=== PATIENT | female | born 1970 ===

== ENCOUNTER 2017-08-23 13:01 | Inpatient (IN) | payer OTHER ==
[2017-08-23 13:09] VITALS: BMI 24.0
--- NOTE | 2017-08-23 14:26 | C.PDOC ---
History Of Present Illness <Stephanie Velasco - Last Filed: 08/23/17 18:24> <Lorraine Phan - Last Filed: 08/23/17 19:46> 47yo female, no known past medical history, presents to the ED with complaints of a non-productive cough for the past 3 days. She also reports associated back pain due to the cough. Patient denies any fever, chills, nausea, vomiting, or rashes. She also denies any recent foreign travels or known sick contacts. She offers no other medical complaints. (Allison Phanjorie Farrukh) <Stephanie Velasco - Last Filed: 08/23/17 18:24> History Per: Patient History/Exam Limitations: no limitations Onset/Duration Of Symptoms: Days (3) Current Symptoms Are (Timing): Still Present Recent travel outside of the [place]: No Additional History Per: Patient <Lorraine Phan - Last Filed: 08/23/17 19:46> Time Seen by Provider: 08/23/17 13:18 Chief Complaint (Nursing): Cough, Cold, Congestion Past Medical History Reviewed: Historical Data, Nursing Documentation, Vital Signs - Medical History PMH: No Chronic Diseases Surgical History: Appendectomy Family History: States: No Known Family Hx, Unknown Family Hx - Social History Hx Tobacco Use: Yes (Smoker) Hx Alcohol Use: No Hx Substance Use: No - Immunization History Hx Influenza Vaccination: No <Allison Phanjorie Farrukh - Last Filed: 08/23/17 19:46> Vital Signs: Last Vital Signs Temp 98.4 F 08/23/17 13:09 Pulse 99 H 08/23/17 16:22 Resp 15 08/23/17 16:22 BP 165/100 H 08/23/17 16:22 Pulse Ox 100 08/23/17 16:52 Review Of Systems Except As Marked, All Systems Reviewed And Found Negative. Constitutional: Negative for: Fever, Chills Respiratory: Positive for: Cough. Negative for: Shortness of Breath, Hemoptysis Gastrointestinal: Negative for: Nausea, Vomiting, Abdominal Pain, Diarrhea Musculoskeletal: Positive for: Back Pain (due to coughing) Skin: Negative for: Rash <EmilieAllisonLorraine C - Last Filed: 08/23/17 19:46> Physical Exam - Physical Exam Appears: Non-toxic, No Acute Distress Skin: Normal Color, Warm, Dry, No Rash Head: Atraumatic, Normacephalic Eye(s): bilateral: Normal Inspection, PERRL, EOMI Nose: Normal Oral Mucosa: Moist Throat: Normal, No Erythema Neck: Normal ROM, Supple Chest: Symmetrical Cardiovascular: Rhythm Regular, No Other (tachycarida) Respiratory: Decreased Breath Sounds (right sided), No Accessory Muscle Use, Other (speaking in full sentences) Gastrointestinal/Abdominal: Normal Exam, Soft, No Tenderness Back: Normal Inspection, No CVA Tenderness, No Vertebral Tenderness, No Paraspinal Tenderness Extremity: Normal ROM, No Pedal Edema, No Deformity, No Swelling Neurological/Psych: Oriented x3, Normal Speech, Normal Motor, Normal Sensation Gait: Steady <Lorraine Phan - Last Filed: 08/23/17 19:46> ED Course And Treatment - Laboratory Results Result Diagrams: 08/23/17 15:05 08/23/17 15:05 <Stephanie Velasco - Last Filed: 08/23/17 18:24> - Laboratory Results Result Diagrams: 08/23/17 15:05 08/23/17 15:05 O2 Sat by Pulse Oximetry: 100 (RA) Pulse Ox Interpretation: Normal <Lorraine Phan - Last Filed: 08/23/17 19:46> Supervising Attending Note - Supervising Attending Note The Documented history was done by the: Physician Biomedical Manager The documented physical exam was done by the: Physician Biomedical Manager The documented procedures were done by the: Physician Biomedical Manager EM CAVEAT: Language Barrier - Attestation: I have personally seen and examined this patient.: Yes I have fully participated in the care of the patient.: Yes I have reviewed all pertinent clinical information, including history, physical exam and plan: Yes <Stephanie Velasco - Last Filed: 08/23/17 18:24> <Lorraine Phan - Last Filed: 08/23/17 19:46> - Notes: Notes:: SENIOR PRODUCT ANALYST COUGH, R BACK PAIN X 3 DAYS. NO FEVER. +SMOKER, DENIES HO ASTHMA. EXAM NAD NONTOXIC APPEARS COMFORTABLE. EXAM ABOVE (Stephanie Velasco) Progress - Data Reviewed Data Reviewed: Lab, Diagnostic imaging, Old records - Critical Care Citical Care: Excluding Proc Time Critical Care Time: 90 minutes - Continuity of Care Discussed patient case with:: Patient, Family-HIPPA compliant Discussed pt. case with product marketing consultant/specialty: General Surgery <Stephanie Velasco - Last Filed: 08/23/17 18:24> <ImeldarainekyleLorraine Farrukh - Last Filed: 08/23/17 19:46> - Re-Evaluation Re-evaluation Note: 08/23/17 14:54 D/W SURG RESIDENT AWARE OF ER FINDINGS WILL EVAL 08/23/17 15:26 S/P EVAL DR HOLDER. REQUESTING CT CHEST. VSS NARD EXAM UNCH PRIOR 08/23/17 17:17 EXAM UNCH PRIOR APPEARS COMFORTABLE VSS NAD. PENDING SURG DISPO (RodStephanie) Critical Care Time - Critical Care Note Total Time (in mins): 40 Documented critical care: time excludes all time spent performing seperately billable procedures. <Lorraine Phan - Last Filed: 08/23/17 19:46> Medical Decision Making <RodStephanie - Last Filed: 08/23/17 18:24> <Lorraine Phan C - Last Filed: 08/23/17 19:46> Medical Decision Making: Impression: Cough x 3 days Plan: -- CXR Time: 1452 CXR reviewed by provider, possible right pneumothorax. Case discussed with ER attending Dr. Velasco, and plan for admission due to pneumothorax. Call placed to medical surgical tech. Patient informed of CXR findings and is agreeable with plan for admission. Time: 1455 Basic labs, IV fluids ordered. Surgical consult placed with Dr. Holder. vice president supply chain to evaluated patient at bedside. Time: 1458 CXR FINDINGS: LINES AND TUBES: None. LUNG AND PLEURA: There is a large loculated pneumothorax with compressive atelectasis of the right mid and lower lobes. The left lung is well inflated and clear. HEART AND MEDIASTINUM: The heart is not enlarged. The hilar and mediastinal contours are within normal limits. SKELETAL STRUCTURES: The bony structures are within normal limits for the patient's age. VISUALIZED UPPER ABDOMEN: Normal. OTHER FINDINGS: None. IMPRESSION: Large loculated right mid and lower pneumothorax. The preliminary findings were documented by the ER clinical team in the ER note. Time: 1620 CT Chest FINDINGS: LUNGS: There is almost complete collapse of the right lung lower lobe. There is a partial CT collapse of the right middle lobe. Otherwise the lungs are clear without evidence of infiltrate cystic formation or consolidation. MEDIASTINUM: Unremarkable thoracic aorta. No aneurysm or dissection. Normal sized heart. Main pulmonary artery unremarkable. No vascular congestion. No lymphadenopathy. 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 PLEURA: There is localized moderate-size right pneumothorax approximately 50 percent contains linear opacities likely represent adhesions. No evidence of pleural effusion. BONES: No fracture. No destructive lesion. UPPER ABDOMEN: Grossly unremarkable. OTHER FINDINGS: None. IMPRESSION: Localize right pneumothorax measures approximately 50 percent of the right chest cavity contains linear opacities likely represent pleural adhesions. Almost complete collapse of the right lower lobe except the superior segments and partial collapse of the right middle lobe likely due to pneumothorax. The lungs are otherwise unremarkable without evidence of infiltrate consolidation or cystic formation. (Lorraine Phan) Disposition Counseled Patient/Family Regarding: Studies Performed, Diagnosis <RodStephanie - Last Filed: 08/23/17 18:24> Counseled Patient/Family Regarding: Smoking Cessation - Disposition Disposition Time: 14:52 - POA Present On Arrival: None <Lorraine Phan - Last Filed: 08/23/17 19:46> - Disposition Disposition: HOSPITALIZED Condition: STABLE Forms: [facility] (Tanzanian) - Clinical Impression Clinical Impression: Pneumothorax Decision To Admit - Pt Status Changed To: Hospital Disposition Of: Inpatient - Admit Certification Admit to Inpatient:: After my assessment, the patient will require hospitalization for at least two midnights. This is because of the severity of symptoms shown, intensity of services needed, and/or the medical risk in this patient being treated as an outpatient. - InPatient: Physician Admission Certification: I certify that this patient requires 2 or more midnights of care for the following reason:: SEE NOTE - . Bed Request Type: Regular Admitting Physician: Fifi Holder <Stephanie Velasco - Last Filed: 08/23/17 18:24> <Lorraine Phan - Last Filed: 08/23/17 19:46> - . Patient Diagnosis: Pneumothorax
[2017-08-23] MEDS ORDERED: Sodium Chloride 0.9% 1,000 ML IV ONE (14:54)
--- NOTE | 2017-08-23 15:00 | RAD ---
HISTORY: COMPARISON: 07/21/2015. TECHNIQUE: Chest PA and lateral FINDINGS: LINES AND TUBES: None. LUNG AND PLEURA: There is a large loculated pneumothorax with compressive atelectasis of the right mid and lower lobes. The left lung is well inflated and clear. HEART AND MEDIASTINUM: The heart is not enlarged. The hilar and mediastinal contours are within normal limits. SKELETAL STRUCTURES: The bony structures are within normal limits for the patient's age. VISUALIZED UPPER ABDOMEN: Normal. OTHER FINDINGS: None. IMPRESSION: Large loculated right mid and lower pneumothorax. The preliminary findings were documented by the ER clinical team in the ER note.
[2017-08-23 15:12] LABS: BASO # 0.1 K/uL (0.0-0.2); HEMOGLOBIN 13.9 g/dL (11.0-16.0); MEAN CELL VOLUME 92.7 fL (81.0-99.0); MONO # 0.6 K/uL (0.0-0.8)
[2017-08-23 15:16] LABS: BASO % 0.8 % (0.0-2.0); EOS # 0.4 K/uL (0.0-0.7); EOS % 4.8 % (0.0-4.0); LYMPH # 3.6 K/uL (1.0-4.3); LYMPH % 44.1 % (20.0-40.0); MEAN CORPUSCULAR HEMOGLOBIN 32.5 pg (27.0-31.0); MEAN PLATELET VOLUME 8.8 fL (7.2-11.7); NEUT # 3.5 K/uL (1.8-7.0); NEUT % 43.3 % (50.0-75.0); NRBC % 0.1 % (0.0-2.0); RBC 4.27 Mil/uL (3.80-5.20); RED CELL DISTRIBUTION WIDTH 13.2 % (11.5-14.5); WHITE BLOOD COUNT 8.1 K/uL (4.8-10.8)
[2017-08-23 15:22] LABS: GFR AFRICAN-AMERICAN > 60
[2017-08-23 15:23] LABS: ALB/GLOB RATIO 1.1 (1.0-2.1); ALBUMIN 4.3 g/dL (3.5-5.0); CALCIUM 9.1 mg/dl (8.6-10.4); GFR NON-AFRICAN AMERICAN > 60
[2017-08-23 15:24] LABS: ALT/SGPT 14 U/L (9-52); AST/SGOT 28 U/L (14-36); BLOOD UREA NITROGEN 7 mg/dL (7-17)
[2017-08-23 15:33] LABS: INR 1.1; PROTHROMBIN TIME 11.8 SECONDS (9.7-12.2)
[2017-08-23 15:44] LABS: SQUAMOUS EPITHIAL < 1 /hpf (0-5); URINE BILIRUBIN NEGATIVE (NEGATIVE); URINE BLOOD 3+ (NEGATIVE); URINE CLARITY Clear (Clear); URINE COLOR Straw (YELLOW); URINE GLUCOSE (UA) NORMAL (Normal); URINE LEUKOCYTE ESTERASE NEG Leu/uL (Negative); URINE PROTEIN NEGATIVE (NEGATIVE); URINE UROBILINOGEN NORMAL mg/dL (0.2-1.0)
[2017-08-23] MEDS ORDERED: Iodixanol 320 MG/ML 100 ML BOTTLE IV ONE (15:46)
--- NOTE | 2017-08-23 16:29 | CT ---
PROCEDURE: CT Chest with contrast HISTORY: Right lung chest pneumo COMPARISON: Comparison is made to the previous same-day chest x-ray TECHNIQUE: Contiguous axial images were obtained through the chest with intravenous contrast enhancement. Sagittal and coronal reconstructions were performed. IV contrast: 100 Visipaque 320 Radiation dose (DLP): 238.82 mGy-cm. This CT exam was performed using one or more of the following dose reduction techniques: Automated exposure control, adjustment of the mA and/or kV according to patient size, and/or use of iterative reconstruction technique. FINDINGS: LUNGS: There is almost complete collapse of the right lung lower lobe. There is a partial CT collapse of the right middle lobe. Otherwise the lungs are clear without evidence of infiltrate cystic formation or consolidation. MEDIASTINUM: Unremarkable thoracic aorta. No aneurysm or dissection. Normal sized heart. Main pulmonary artery unremarkable. No vascular congestion. No lymphadenopathy. 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 PLEURA: There is localized moderate-size right pneumothorax approximately 50 percent contains linear opacities likely represent adhesions. No evidence of pleural effusion. BONES: No fracture. No destructive lesion. UPPER ABDOMEN: Grossly unremarkable. OTHER FINDINGS: None. IMPRESSION: Localize right pneumothorax measures approximately 50 percent of the right chest cavity contains linear opacities likely represent pleural adhesions. Almost complete collapse of the right lower lobe except the superior segments and partial collapse of the right middle lobe likely due to pneumothorax. The lungs are otherwise unremarkable without evidence of infiltrate consolidation or cystic formation.
[2017-08-23] MEDS ORDERED: Lidocaine 2% w Epi 1:100,000 Inj IJ ONE (17:54)
[2017-08-23] MEDS ORDERED: HYDROmorphone 0.5 mg/0.5 ml ISec IVP STA (19:48)
[2017-08-23] MEDS ORDERED: Morphine 4 MG/ML VIAL IVP STA (19:53)
[2017-08-23] MEDS ORDERED: Morphine 4 MG/ML VIAL ONE (19:56)
[2017-08-24] MEDS: Lactated Ringer's 1,000 ML IV SCH ×2 (00:57→14:00)
[2017-08-24 05:00] LABS: BASO % 0.4 % (0.0-2.0); EOS # 0.3 K/uL (0.0-0.7); EOS % 2.8 % (0.0-4.0); HEMOGLOBIN 13.1 g/dL (11.0-16.0); LYMPH % 36.4 % (20.0-40.0); MEAN CELL VOLUME 92.1 fL (81.0-99.0); MEAN CORPUSCULAR HGB CONC 34.7 g/dL (33.0-37.0); MEAN PLATELET VOLUME 8.5 fL (7.2-11.7); MONO # 0.9 K/uL (0.0-0.8); MONO % 8.1 % (0.0-10.0); NEUT # 5.8 K/uL (1.8-7.0); NEUT % 52.3 % (50.0-75.0); NRBC % 0.1 % (0.0-2.0); RBC 4.09 Mil/uL (3.80-5.20); RED CELL DISTRIBUTION WIDTH 12.7 % (11.5-14.5); WHITE BLOOD COUNT 11.1 K/uL (4.8-10.8)
[2017-08-24 05:15] LABS: BLOOD UREA NITROGEN 9 mg/dL (7-17); CALCIUM 8.9 mg/dl (8.6-10.4); GFR AFRICAN-AMERICAN > 60; GFR NON-AFRICAN AMERICAN > 60
[2017-08-24] MEDS: Oxycodone/Acetaminophen 5/325 mg Tab PO PRN ×2 (05:22→18:42)
--- NOTE | 2017-08-24 05:45 | CP.PCM.HP ---
History of Present Illness - History of Present Illness History of Present Illness: History and physical for Dr. Vargas--late entry Chief complaint: pneumothorax Patient is a 47F with no reported past medical history who presented to the ED for evaluation of non-productive cough with associated chest and back pain. Patient is Danish-speaking, daughter is at bedside for translation. She reports 4-5 days of non-productive cough with subsequent development of chest and back pain. She denies fevers, chills, palpitations, nausea, vomiting, or any other symptoms. Patient denies recent trauma, recent travel, or any thoracic procedures or sick contacts. Pt had something similar in 2016 for which she was diagnosed with bronchitis in the ER and it resolved with antibiotics. Initial chest x-ray on 08/23 showed large loculated pneumothorax in the right middle and lower lobes. Initial chest CT with contrast showed right pneumothorax measuring approximately 50 percent of the right chest cavity, almost complete collapse of the right lower lobe and partial collapse of the right middle lobe. PMH: denies PSH: x2 (1991, 1994), appendectomy (2001), breast cyst removal x3 ( 2011 x2, 2013) Allergies: NKDA Social: current smoker approx 2 cigarette daily for 30 years; social alcohol; denies drug use Present on Admission - Present on Admission Any Indicators Present on Admission: No Review of Systems - Review of Systems All systems: reviewed and no additional remarkable complaints except (as per HPI ) Past Patient History - Past Medical History & Family History Past Medical History?: Yes Past Family History: Reviewed and not pertinent - Past Social History Smoking Status: Light Smoker < 10 Cigarettes Daily Alcohol: None Drugs: Denies - CARDIAC Hx Cardiac Disorders: No - PULMONARY Hx Respiratory Disorders: No - NEUROLOGICAL Hx Neurological Disorder: No - HEENT Hx HEENT Problems: No - RENAL Hx Chronic Kidney Disease: No - ENDOCRINE/METABOLIC Hx Endocrine Disorders: No - HEMATOLOGICAL/ONCOLOGICAL Hx Blood Disorders: No - INTEGUMENTARY Hx Dermatological Problems: No - MUSCULOSKELETAL/RHEUMATOLOGICAL Hx Falls: No - GASTROINTESTINAL Hx Gastrointestinal Disorders: No - GENITOURINARY/GYNECOLOGICAL Hx Genitourinary Disorders: No - PSYCHIATRIC Hx Substance Use: No - SURGICAL HISTORY Hx Appendectomy: Yes (2001) Hx Section: Yes (1991 and 1994.) Other/Comment: Breast Cyst Removed. X 2. 2011,2013. - ANESTHESIA Hx Anesthesia: Yes Hx Anesthesia Reactions: No Hx Malignant Hyperthermia: No Has any member of the family had a problem w/ anesthesia?: No Meds Allergies/Adverse Reactions: Allergies Allergy/AdvReac Type Severity Reaction Status Date / Time No Known Allergies Allergy Verified 07/21/15 18:47 Physical Exam - Constitutional Appears: Well, Non-toxic, No Acute Distress - Head Exam Head Exam: ATRAUMATIC, NORMOCEPHALIC - Eye Exam Eye Exam: Normal appearance. absent: Conjunctival injection, Scleral icterus - ENT Exam ENT Exam: Mucous Membranes Moist, Normal Oropharynx - Respiratory Exam Respiratory Exam: NORMAL BREATHING PATTERN. absent: Accessory Muscle Use, Respiratory Distress Additional comments: decreased lung sounds in the right middle lung and right lower lung moy - Cardiovascular Exam Cardiovascular Exam: Tachycardia, REGULAR RHYTHM - GI/Abdominal Exam GI & Abdominal Exam: Soft. absent: Distended, Tenderness - Extremities Exam Extremities exam: Positive for: pedal pulses present. Negative for: calf tenderness, pedal edema - Neurological Exam Neurological exam: Alert, Oriented x3 - Psychiatric Exam Psychiatric exam: Normal Affect, Normal Mood - Skin Skin Exam: Dry, Intact, Normal Color, Warm Results - Vital Signs Recent Vital Signs: Last Vital Signs Temp 98.5 F 08/24/17 04:00 Pulse 86 08/24/17 04:10 Resp 20 08/24/17 04:00 BP 136/92 H 08/24/17 04:00 Pulse Ox 99 08/24/17 04:00 - Labs Result Diagrams: 08/24/17 04:55 08/24/17 04:55 Labs: Laboratory Results - last 24 hr 08/23/17 08/23/17 08/23/17 15:05 15:05 15:05 WBC 8.1 RBC 4.27 Hgb 13.9 Hct 39.6 MCV 92.7 MCH 32.5 H MCHC 35.0 RDW 13.2 Plt Count 365 MPV 8.8 Neut % (Auto) 43.3 L Lymph % (Auto) 44.1 H [place] % (Auto) 7.0 Eos % (Auto) 4.8 H Baso % (Auto) 0.8 Neut # (Auto) 3.5 Lymph # (Auto) 3.6 [place] # (Auto) 0.6 Eos # (Auto) 0.4 Baso # (Auto) 0.1 PT 11.8 INR 1.1 APTT 19 L Sodium 142 Potassium 4.0 Chloride 103 Carbon Dioxide 24 Anion Gap 19 BUN 7 Creatinine 0.6 L Est GFR ( Amer) > 60 Est GFR (Non-Af Amer) > 60 Random Glucose 109 H Calcium 9.1 Total Bilirubin 0.6 AST 28 ALT 14 Alkaline Phosphatase 62 Troponin I Total Protein 8.2 Albumin 4.3 Globulin 3.9 Albumin/Globulin Ratio 1.1 Urine Color Urine Clarity Urine pH Ur Specific [place] Urine Protein Urine Glucose (UA) Urine Ketones Urine Blood Urine Nitrate Urine Bilirubin Urine Urobilinogen Ur Leukocyte Esterase Urine WBC (Auto) Urine RBC (Auto) Ur Squamous Epith Cells 08/23/17 08/24/17 08/24/17 15:32 04:55 04:55 WBC 11.1 H RBC 4.09 Hgb 13.1 Hct 37.7 MCV 92.1 MCH 32.0 H MCHC 34.7 RDW 12.7 Plt Count 372 MPV 8.5 Neut % (Auto) 52.3 Lymph % (Auto) 36.4 [place] % (Auto) 8.1 Eos % (Auto) 2.8 Baso % (Auto) 0.4 Neut # (Auto) 5.8 Lymph # (Auto) 4.0 [place] # (Auto) 0.9 H Eos # (Auto) 0.3 Baso # (Auto) 0.0 PT INR APTT Sodium 144 Potassium 3.9 Chloride 107 Carbon Dioxide 24 Anion Gap 17 BUN 9 Creatinine 0.7 Est GFR ( Amer) > 60 Est GFR (Non-Af Amer) > 60 Random Glucose 109 H Calcium 8.9 Total Bilirubin AST ALT Alkaline Phosphatase Troponin I < 0.0120 Total Protein Albumin Globulin Albumin/Globulin Ratio Urine Color Straw Urine Clarity Clear Urine pH 6.0 Ur Specific [place] 1.008 Urine Protein Negative Urine Glucose (UA) Normal Urine Ketones Negative Urine Blood 3+ H Urine Nitrate Negative Urine Bilirubin Negative Urine Urobilinogen Normal Ur Leukocyte Esterase Neg Urine WBC (Auto) < 1 Urine RBC (Auto) 2 Ur Squamous Epith Cells < 1 - Imaging and Cardiology Chest x-ray Status: Image reviewed by me, Report reviewed by me CT scan - chest Status: Image reviewed by me, Report reviewed by me Assessment & Plan - Assessment and Plan (Free Text) Assessment: 47F with large pneumothorax of the right middle and lower lobe of unknown origin , patient with no current respiratory distress Plan: Attempts pleurocatheter insertion on the right at bedside in the ED but were not successful--patient remains stable and was admitted to telemetry for further monitoring Consult IR for possible pig-tail catheter insertion via CT Will closely monitor patient NPO IVF, PRN pain and nausea medcation AM CXR CBC, BMP Discussed with Dr. Sam Zavala, PGY2
--- NOTE | 2017-08-24 08:19 | RAD ---
HISTORY: right pneumothorax COMPARISON: 08/23/2017. FINDINGS: LUNGS: There is compressive atelectasis of the right lung. The left lung is clear. . PLEURA: Persistent loculated large right pneumothorax. No left pneumothorax or pleural effusion. CARDIOVASCULAR: Normal. OSSEOUS STRUCTURES: No significant abnormalities. VISUALIZED UPPER ABDOMEN: Normal. OTHER FINDINGS: None. IMPRESSION: No change in large loculated right pneumothorax.
--- NOTE | 2017-08-24 08:21 | RAD ---
PROCEDURE: CHEST RADIOGRAPH, 1 VIEW HISTORY: rigth pneumothorax s/p chest tube placement COMPARISON: None available. FINDINGS: LUNGS: There is compressive atelectasis of the right lung. The left lung is clear. PLEURA: Interval placement of right chest tube which appears in the right chest wall. No change in large loculated right pneumothorax. No left pleural effusion or pneumothorax. CARDIOVASCULAR: Normal. OSSEOUS STRUCTURES: No significant abnormalities. VISUALIZED UPPER ABDOMEN: Normal. OTHER FINDINGS: None. IMPRESSION: Interval placement of right chest tube which appears to terminate in the chest wall. No significant interval change in large loculated right pneumothorax with compressive atelectasis of the right lung.
--- NOTE | 2017-08-24 09:32 | PCM.IRP ---
Chief Complaint: cough, back pain, large right PTX Objective - Vital Signs/Intake and Output Vital Signs (last 24 hours): Vital Signs - 24 hr 08/23/17 08/23/17 08/23/17 13:09 14:32 16:22 Temperature 98.4 F Pulse Rate 98 H 109 H 99 H Respiratory 18 20 15 Rate Blood Pressure 141/95 H 165/103 H 165/100 H O2 Sat by Pulse 100 100 100 Oximetry 08/23/17 08/23/17 08/23/17 16:23 19:46 19:48 Temperature 98.6 F Pulse Rate 95 H Respiratory 17 Rate Blood Pressure 147/92 H O2 Sat by Pulse 100 100 100 Oximetry 08/23/17 08/23/17 08/23/17 20:04 20:13 20:26 Temperature 99 F Pulse Rate 125 H 128 H 128 H Respiratory 28 H 24 22 Rate Blood Pressure 163/101 H 155/98 H 145/92 H O2 Sat by Pulse 100 100 99 Oximetry 08/23/17 08/23/17 08/23/17 22:44 23:25 23:41 Temperature 98.1 F Pulse Rate 92 H 92 H 84 Respiratory 16 20 Rate Blood Pressure 145/98 H 146/95 H O2 Sat by Pulse 99 100 Oximetry 08/24/17 08/24/17 08/24/17 04:00 04:10 07:20 Temperature 98.5 F 97.9 F Pulse Rate 96 H 86 75 Respiratory 20 18 Rate Blood Pressure 136/92 H 129/89 O2 Sat by Pulse 99 98 Oximetry Intake and Output (last 12 hours): Intake & Output 08/23/17 08/24/17 08/24/17 18:59 06:59 18:59 Intake Total 100 Balance 100 Weight 150 lb Intake: Oral 100 Other: Voiding Method Bedside Commode # Voids Urine, Voided 1 - Medications Medications: Current Medications Lactated Ringer's (Lactated Ringer's) 1,000 mls @ 100 mls/hr IV .Q10H [facility] Last Admin: 08/24/17 00:57 Dose: 100 mls/hr Nicotine (Nicoderm Cq) 1 patch TD DAILY [facility] Ondansetron HCl (Zofran Inj) 4 mg IVP Q6 PRN PRN Reason: Nausea/Vomiting Oxycodone/Acetaminophen (Percocet 5/325 Mg Tab) 1 tab PO Q6H PRN PRN Reason: Pain, moderate (4-7) Stop: 08/26/17 20:48 Last Admin: 08/24/17 05:22 Dose: 1 tab Pneumococcal Polyvalent Vaccine (Pneumovax 23 Vaccine) 0.5 ml IM .ONCE ONE Stop: 08/26/17 11:01 - Labs Labs (last 24 hours): Laboratory Results - last 24 hr 08/23/17 08/23/17 08/23/17 15:05 15:05 15:05 WBC 8.1 RBC 4.27 Hgb 13.9 Hct 39.6 MCV 92.7 MCH 32.5 H MCHC 35.0 RDW 13.2 Plt Count 365 MPV 8.8 Neut % (Auto) 43.3 L Lymph % (Auto) 44.1 H [place] % (Auto) 7.0 Eos % (Auto) 4.8 H Baso % (Auto) 0.8 Neut # (Auto) 3.5 Lymph # (Auto) 3.6 [place] # (Auto) 0.6 Eos # (Auto) 0.4 Baso # (Auto) 0.1 PT 11.8 INR 1.1 APTT 19 L Sodium 142 Potassium 4.0 Chloride 103 Carbon Dioxide 24 Anion Gap 19 BUN 7 Creatinine 0.6 L Est GFR ( Amer) > 60 Est GFR (Non-Af Amer) > 60 Random Glucose 109 H Calcium 9.1 Total Bilirubin 0.6 AST 28 ALT 14 Alkaline Phosphatase 62 Troponin I Total Protein 8.2 Albumin 4.3 Globulin 3.9 Albumin/Globulin Ratio 1.1 Urine Color Urine Clarity Urine pH Ur Specific [place] Urine Protein Urine Glucose (UA) Urine Ketones Urine Blood Urine Nitrate Urine Bilirubin Urine Urobilinogen Ur Leukocyte Esterase Urine WBC (Auto) Urine RBC (Auto) Ur Squamous Epith Cells 08/23/17 08/24/17 08/24/17 15:32 04:55 04:55 WBC 11.1 H RBC 4.09 Hgb 13.1 Hct 37.7 MCV 92.1 MCH 32.0 H MCHC 34.7 RDW 12.7 Plt Count 372 MPV 8.5 Neut % (Auto) 52.3 Lymph % (Auto) 36.4 [place] % (Auto) 8.1 Eos % (Auto) 2.8 Baso % (Auto) 0.4 Neut # (Auto) 5.8 Lymph # (Auto) 4.0 [place] # (Auto) 0.9 H Eos # (Auto) 0.3 Baso # (Auto) 0.0 PT INR APTT Sodium 144 Potassium 3.9 Chloride 107 Carbon Dioxide 24 Anion Gap 17 BUN 9 Creatinine 0.7 Est GFR ( Amer) > 60 Est GFR (Non-Af Amer) > 60 Random Glucose 109 H Calcium 8.9 Total Bilirubin AST ALT Alkaline Phosphatase Troponin I < 0.0120 Total Protein Albumin Globulin Albumin/Globulin Ratio Urine Color Straw Urine Clarity Clear Urine pH 6.0 Ur Specific [place] 1.008 Urine Protein Negative Urine Glucose (UA) Normal Urine Ketones Negative Urine Blood 3+ H Urine Nitrate Negative Urine Bilirubin Negative Urine Urobilinogen Normal Ur Leukocyte Esterase Neg Urine WBC (Auto) < 1 Urine RBC (Auto) 2 Ur Squamous Epith Cells < 1 Assessment/Plan - Assessment and Plan (Free Text) Assessment: 47 yo female w/ cough, back pain found to have large right PTX Plan: current and past imaging reviewed. retrospective review of chest radiograph from 07/21/2015 also showed evidence of right PTX, although considerably smaller. patient saturation is 100% and is in no respiratory distress. while there may be an acute component, this appears to be a chronic process, possibly representing pneumothorax ex vacuo. consider pulm consult. will place chest tube pending further recommendations. discussed with residential concierge, melecio at approximately 9 am
--- NOTE | 2017-08-24 09:55 | PCM.PROC ---
Procedures Attestation:: I certify that I have explained the specified Operation(s) or Procedure(s), risks, benefits and reasonable alternatives to the Patient and/or other person responsible. The opportunity was given to ask questions and all questions answered - Chest Tube Chest Tube Location: Mid-Axillary Right Size of Tube (cm): 8 (greek) Chest Tube Procedure: Chlorhexidine Tube Sutured to Skin: Yes Sterile Dressing Applied: Yes Anesthesia: Lidocaine 2% Volume Anesthetic (mls): 20 (cc) Incision Made With: #11 blade Post Procedure: sutured to skin, sterile dressing applied, air occlusive dressing Osorio of Air Stewart: Yes Tube Drainage: none Post Procedure CXR?: Yes Patient Tolerated Procedure: Yes Complications: placement outside of thoracic cavity Progress: Attempted to place an 8fr pleural catheter with a heimlich valve at bedside in the 5th intercostal space. Written consent was obtained. Time out was performed identifying the patient, procedure, and the laterality. Patient was prepped with chlorhexadine, local anesthetic was administered, and patient was draped in a sterile fashion. small incision was made in the skin with an #11 blade. 12g hollow needle with 8fr catheter attached to empty syringe was inserted into the pleural space just superior to rib 5 and air was aspirated. The catheter was very difficult to thread over the needle into the pleural cavity, and placement was uncertain. Catheter was left in place and connected to heimlich valve and suction. Catheter was sutured to the skin and occlusive dressing was placed. Patient tolerated the procedure well with some transient tachycardia and hypoxia that resolved after the procedure was completed. Follow up chest x- ray demonstrated the catheter was in the subcutaneous tissue, not the pleural cavity but that pneumothorax was stable.
--- NOTE | 2017-08-24 17:58 | PCM.SURG1 ---
Surgeon's Initial Post Op Note - Surgeon's Notes Surgeon: Kwadwo Palacios MD [employer] Instructor: None Type of Anesthesia: Local Pre-Operative Diagnosis: pneumothorax Operative Findings: large right PTX Post-Operative Diagnosis: same Operation Performed: CT guided right chest tube insertion Specimen/Specimens Removed: n/a Estimated Blood Loss: EBL {In ML}: 3 Post-Op Condition: Good Date of Surgery/Procedure: 08/24/17 Time of Surgery/Procedure: 15:30
--- NOTE | 2017-08-24 18:27 | RAD ---
HISTORY: sp Pigtail insertion COMPARISON: Time of the most recent examination: 04:36. FINDINGS: LUNGS: Partial re-expansion of the right lung. PLEURA: Residual pneumothorax. Pigtail catheter in the pleural space peripherally CARDIOVASCULAR: Normal. OSSEOUS STRUCTURES: No significant abnormalities. VISUALIZED UPPER ABDOMEN: Normal. OTHER FINDINGS: None. IMPRESSION: Status post pigtail catheter insertion, approximately 60- 75% reduction in right pneumothorax. Loculated right pneumothorax remains.
--- NOTE | 2017-08-24 20:18 | PCM.RRT ---
<German Denton - Last Filed: 08/24/17 20:15> RECEIVING SUPERVISOR Nurses Assessment - Situation Date: 08/24/17 Time RECEIVING SUPERVISOR was called: 15:20 RECEIVING SUPERVISOR Responder Arrival Time:: 15:22 RECEIVING SUPERVISOR Location:: [facility] room 2 RECEIVING SUPERVISOR Reason for Call: Tachycardia RECEIVING SUPERVISOR Called By: Physician - IV IV Inserted during RECEIVING SUPERVISOR?: No - Respiratory RECEIVING SUPERVISOR Delivery Method: Nasal Cannula @L/min Oxygen Flow Rate: 4 Received Nebulizer Treatments: No Was the Patient Ventilated with Bag/Mask 100% O2?: No Secretions Suctioned?: No Was the Patient Intubated?: No Was the Patient Placed on a Ventilator?: No - Medication Medications Administered During RECEIVING SUPERVISOR: none - Diagnostic Test Ordered EKG: No Chest X-Ray: Yes CT Scan: Yes CPR started during RECEIVING SUPERVISOR?: No - Vital Signs Vital Signs: Rapid Response Vital Sign Blood Pressure 161/96 Pulse Rate 147 Respiratory Rate 25 Temperature 97.8 F Oxygen Saturation 100 - [place] Coma Scale Coma Scale Eye Opening: Spontaneous Coma Scale Motor: Obeys Commands Movement Coma Scale Verbal: Oriented Coma Scale Total: 15 - Time RECEIVING SUPERVISOR Ended Time RECEIVING SUPERVISOR Ended: 15:25 - Vital Signs at end of RECEIVING SUPERVISOR Vital Signs at end of RECEIVING SUPERVISOR: Rapid Response End Vital Sign Blood Pressure 145/96 Pulse Rate 123 Respiratory Rate 20 Temperature 97.8 F O2 Sat by Pulse Oximetry 100 - Recommendations Notifications: Attending Physician, Consultations, Family or Designated Caregiver I.Reason for RECEIVING SUPERVISOR - A) Acute Change in Patient: Subjective: patient became tachycardic as IR was finish procedure. When i examined the patinet she was less tachy and began to trend down into the 130-120 from 150. Patient denies any chest pain or palpitations or SOB. In fact patient states she feels better now that catheter has been place. No other symptoms described. CXR and ekg were ordered - Respiratory Oxygen Delivery Method: Nasal Cannula @L/min Oxygen Flow Rate: 4 <Violeta Fraser - Last Filed: 08/25/17 17:04> RECEIVING SUPERVISOR Nurses Assessment - Vital Signs Vital Signs: Rapid Response Vital Sign Blood Pressure 161/96 Pulse Rate 147 Respiratory Rate 25 Temperature 97.8 F Oxygen Saturation 100 - Vital Signs at end of RECEIVING SUPERVISOR Vital Signs at end of RECEIVING SUPERVISOR: Rapid Response End Vital Sign Blood Pressure 145/96 Pulse Rate 123 Respiratory Rate 20 Temperature 97.8 F O2 Sat by Pulse Oximetry 100 Attending/Attestation - Attestation I have personally seen and examined this patient.: Yes I have fully participated in the care of the patient.: Yes I have reviewed all pertinent clinical information, including history, physical exam and plan: Yes Notes (Text): patient will follow her primary. I agree with the documentation of the resident's assessment and the plan
[2017-08-25] MEDS: Oxycodone/Acetaminophen 5/325 mg Tab PO PRN (04:35)
--- NOTE | 2017-08-25 09:53 | CP.PCM.PN ---
Subjective - Date & Time of Evaluation Date of Evaluation: 08/25/17 Time of Evaluation: 09:50 - Subjective Subjective: General Surgery - Dr. Vargas Pt S&E. NAEO. Pt has mild pain at site of pigtail catheter, otherwise no complaints. She denies any SOB or chest pain. Objective - Vital Signs/Intake and Output Vital Signs (last 24 hours): Temp Pulse Resp BP Pulse Ox 98.3 F 85 18 123/82 96 08/25/17 07:40 08/25/17 07:40 08/25/17 07:40 08/25/17 07:40 08/25/17 07:40 Intake and Output: 08/25/17 08/25/17 06:59 18:59 Intake Total 240 Output Total 0 Balance 240 - Medications Medications: Current Medications Nicotine (Nicoderm Cq) 1 patch TD DAILY ANGELICA Last Admin: 08/24/17 10:31 Dose: 1 patch Ondansetron HCl (Zofran Inj) 4 mg IVP Q6 PRN PRN Reason: Nausea/Vomiting Last Admin: 08/25/17 04:38 Dose: 4 mg Oxycodone/Acetaminophen (Percocet 5/325 Mg Tab) 1 tab PO Q6H PRN PRN Reason: Pain, moderate (4-7) Stop: 08/26/17 20:48 Last Admin: 08/25/17 04:35 Dose: 1 tab Pneumococcal Polyvalent Vaccine (Pneumovax 23 Vaccine) 0.5 ml IM .ONCE ONE Stop: 08/26/17 11:01 - Labs Labs: 08/24/17 04:55 08/24/17 04:55 PT 11.8 SECONDS (9.7-12.2) 08/23/17 15:05 INR 1.1 08/23/17 15:05 APTT 19 SECONDS (21-34) L 08/23/17 15:05 - Constitutional Appears: No Acute Distress - Head Exam Head Exam: ATRAUMATIC, NORMAL INSPECTION, NORMOCEPHALIC - Eye Exam Eye Exam: Normal appearance - Respiratory Exam Respiratory Exam: NORMAL BREATHING PATTERN. absent: Respiratory Distress - Neurological Exam Neurological Exam: Alert, Oriented x3 - Psychiatric Exam Psychiatric exam: Normal Affect, Normal Mood - Skin Skin Exam: Dry, Intact Assessment and Plan - Assessment and Plan (Free Text) Assessment: 47 yo F w/ R pneumothorax, s/p pigtail catheter -CXR today significantly improved, however there remains some small pneumo that may be chronic given pleural thickening and similar CXR findings in 2016 -Consult placed for thoracic surgery, Dr. Baez -Will F/u Recc. -Continue CT to wall suction Dw Dr. Vargas
--- NOTE | 2017-08-25 10:39 | CT ---
PROCEDURE: CT-GUIDED CHEST TUBE PLACEMENT CLINICAL HISTORY: 47-year-old female with large right pneumothorax is referred to Interventional Radiology for percutaneous chest tube placement. COMPARISON: CT scan of the chest dated 08/24/2015 PROCEDURE: 1. Focused CT of the right hemithorax. 2. CT-guided chest tube placement. PRE-PROCEDURE FINDINGS: 1. Large right pneumothorax POST-PROCEDURE FINDINGS: 1. No evidence of post-procedural complication. INTERVENTIONAL RADIOLOGIST: Kwadwo Palacios M.D. (the attending was present for the entire procedure) ANESTHESIA: None. MEDICATIONS: Lidocaine 1% for local subcutaneous analgesia. COMPLICATIONS: Self-limiting transient tachycardia with shortness of breath. PROCEDURE DESCRIPTION AND FINDINGS: The risks, benefits, alternatives and possible complications of the procedure were fully discussed; all questions were answered and informed consent was obtained. The patient was brought into the interventional suite and a pre-procedure 'time-out' was performed. The patient was placed on the CT table in the left lateral decubitus position. The pneumothorax was localized under CT-guidance and a jana was made on the overlying skin. The right lateral chest was prepped and draped in the usual sterile fashion. Maximum sterile barrier precautions were maintained throughout the entire procedure. Preliminary focused CT images of the right hemithorax again demonstrate large right pneumothorax and. Following subcutaneous infiltration of lidocaine 1% for local analgesia, under CT-guidance, an 18-gauge trocar needle was advanced into the right pleural space. An 0.035 guidewire was looped within the pleural space. After serial dilatation, an 8.5 [place] pigtail catheter was advanced over the guidewire into the right lung apex. Post-procedure imaging demonstrated optimal positioning of the pigtail catheter at the right lung apex with mild expansion of lung. The catheter was secured to the skin utilizing a 2-0 suture and sterile adhesive bandage and left to external gravity bag drainage. The patient tolerated the procedure well without immediate post-procedure complications and was transferred back to the floor in stable condition. IMPRESSION: Successful CT-guided placement of 8.5 [place] pigtail catheter within the right pleural space.
--- NOTE | 2017-08-25 11:03 | CP.PCM.CON ---
History of Present Illness - History of Present Illness History of Present Illness: Thoracic Surgery - Dr. Baez 47yo F w/ no reported PMH, who presented to the ED on 08/23 with chest pain, found to have large Right Pneumothorax. Initially an attempt was made at pleuracath insertion, however the catheter was found to not be in the chest and a consult was placed to IR for pigtail catheter insertion. The pt was taken yesterday for placement of CT guided pigtail. This morning CXR was repeated which shows re-expansion of the lung with some residual pneumothorax. In comparing to prior CXR from 2016 this pneumothorax appears to be present at that time as well which may indicate a chronic component. Pt currently states she feels better after pigtail insertion. She has mild pain from the site but denies any significant chest pain or SOB. She denies any Fevers/Chills. Right pigtail chest tube currently to wall suction, no airleak. PMH: Denies PSH: Csection x2, Appy, Breast cyst removal Allergies: NKDA Social: current smoker approx 2 cigarette daily for 30 years; social alcohol; denies drug use Review of Systems - Review of Systems All systems: reviewed and no additional remarkable complaints except Past Patient History - Past Medical History & Family History Past Medical History?: Yes Past Family History: Reviewed and not pertinent - Past Social History Smoking Status: Light Smoker < 10 Cigarettes Daily Alcohol: None Drugs: Denies - CARDIAC Hx Cardiac Disorders: No - PULMONARY Hx Respiratory Disorders: No - NEUROLOGICAL Hx Neurological Disorder: No - HEENT Hx HEENT Problems: No - RENAL Hx Chronic Kidney Disease: No - ENDOCRINE/METABOLIC Hx Endocrine Disorders: No - HEMATOLOGICAL/ONCOLOGICAL Hx Blood Disorders: No - INTEGUMENTARY Hx Dermatological Problems: No - MUSCULOSKELETAL/RHEUMATOLOGICAL Hx Falls: No - GASTROINTESTINAL Hx Gastrointestinal Disorders: No - GENITOURINARY/GYNECOLOGICAL Hx Genitourinary Disorders: No - PSYCHIATRIC Hx Substance Use: No - SURGICAL HISTORY Hx Appendectomy: Yes (2001) Hx Section: Yes (1991 and 1994.) Other/Comment: Breast Cyst Removed. X 2. 2011,2013. - ANESTHESIA Hx Anesthesia: Yes Hx Anesthesia Reactions: No Hx Malignant Hyperthermia: No Has any member of the family had a problem w/ anesthesia?: No Meds Allergies/Adverse Reactions: Allergies Allergy/AdvReac Type Severity Reaction Status Date / Time No Known Allergies Allergy Verified 07/21/15 18:47 - Medications Medications: Current Medications Nicotine (Nicoderm Cq) 1 patch TD DAILY ANGELICA Last Admin: 08/24/17 10:31 Dose: 1 patch Ondansetron HCl (Zofran Inj) 4 mg IVP Q6 PRN PRN Reason: Nausea/Vomiting Last Admin: 08/25/17 04:38 Dose: 4 mg Oxycodone/Acetaminophen (Percocet 5/325 Mg Tab) 1 tab PO Q6H PRN PRN Reason: Pain, moderate (4-7) Stop: 08/26/17 20:48 Last Admin: 08/25/17 04:35 Dose: 1 tab Pneumococcal Polyvalent Vaccine (Pneumovax 23 Vaccine) 0.5 ml IM .ONCE ONE Stop: 08/26/17 11:01 Physical Exam - Constitutional Appears: No Acute Distress - Head Exam Head Exam: ATRAUMATIC, NORMAL INSPECTION, NORMOCEPHALIC - Respiratory Exam Respiratory Exam: NORMAL BREATHING PATTERN. absent: Respiratory Distress Additional comments: pigtail catheter to wall suction - GI/Abdominal Exam GI & Abdominal Exam: Soft - Neurological Exam Neurological exam: Alert, Oriented x3 - Psychiatric Exam Psychiatric exam: Normal Affect, Normal Mood - Skin Skin Exam: Dry, Intact Results - Vital Signs Recent Vital Signs: Last Vital Signs Temp 98.3 F 08/25/17 07:40 Pulse 85 08/25/17 07:40 Resp 18 08/25/17 07:40 BP 123/82 08/25/17 07:40 Pulse Ox 96 08/25/17 07:40 - Labs Result Diagrams: 08/24/17 04:55 08/24/17 04:55 Assessment & Plan - Assessment and Plan (Free Text) Assessment: 47yo F w/ R-pneumothorax, s/p pigtail catheter yesterday afternoon -Continue pigtail to wall suction for 48hrs -Will plan for waterseal on Monday AM and CXR 3 hours after to assess if PTX re- accumulates DW Dr Baez
--- NOTE | 2017-08-25 14:05 | RAD ---
HISTORY: Comparison, PTX COMPARISON: 08/24/2017. FINDINGS: LUNGS: The lungs are well inflated and clear. There is a linear scar in the right mid lung. PLEURA: Status post right chest tube insertion there is interval near complete resolution of loculated right pneumothorax. There are no pleural effusions or residual significant pneumothorax. CARDIOVASCULAR: Normal. OSSEOUS STRUCTURES: No significant abnormalities. VISUALIZED UPPER ABDOMEN: Normal. OTHER FINDINGS: None. IMPRESSION: Status post right chest tube placement with its tip in the region of the costophrenic angle, interval near complete resolution of large loculated right pneumothorax. No acute findings.
--- NOTE | 2017-08-25 21:23 | CARD ---
APPROVED REPORT EKG Measurement Heart [id number] <Conclusion> Sinus tachycardia Otherwise normal ECG
--- NOTE | 2017-08-25 22:09 | CARD ---
APPROVED REPORT EKG Measurement Heart [id number] [place] [id number] [id number] <Conclusion> Normal sinus rhythm Normal ECG
[2017-08-26 00:31] VITALS: RESP 20
--- NOTE | 2017-08-26 06:42 | CP.PCM.PN ---
<BarajasJessi paul - Last Filed: 08/26/17 06:38> Subjective - Date & Time of Evaluation Date of Evaluation: 08/26/17 Time of Evaluation: 06:38 - Subjective Subjective: Surgery - Dr. Sepulveda (Covering for Dr. Vargas) and Dr. Baez (thoracic) Pt S&E. NAEO. Pt denies any chest pain or SOB. She has mild pain at the site of pigtail catheter insertion. Pigtail CT to wall suction with no air leak. Dressing c/D/i. Objective - Vital Signs/Intake and Output Vital Signs (last 24 hours): Temp Pulse Resp BP Pulse Ox 98 F 89 20 130/83 98 08/26/17 04:00 08/26/17 04:00 08/26/17 04:00 08/26/17 04:00 08/26/17 04:00 Intake and Output: 08/25/17 08/26/17 18:59 06:59 Intake Total 600 10 Output Total 0 Balance 600 10 - Medications Medications: Current Medications Acetaminophen (Tylenol 325mg Tab) 650 mg PO Q6 PRN PRN Reason: Headache Last Admin: 08/25/17 20:06 Dose: 650 mg Nicotine (Nicoderm Cq) 1 patch TD DAILY ANGELICA Last Admin: 08/25/17 10:30 Dose: 1 patch Ondansetron HCl (Zofran Inj) 4 mg IVP Q6 PRN PRN Reason: Nausea/Vomiting Last Admin: 08/25/17 04:38 Dose: 4 mg Oxycodone/Acetaminophen (Percocet 5/325 Mg Tab) 1 tab PO Q6H PRN PRN Reason: Pain, moderate (4-7) Stop: 08/26/17 20:48 Last Admin: 08/25/17 04:35 Dose: 1 tab Pneumococcal Polyvalent Vaccine (Pneumovax 23 Vaccine) 0.5 ml IM .ONCE ONE Stop: 08/26/17 11:01 - Labs Labs: 08/24/17 04:55 08/24/17 04:55 PT 11.8 SECONDS (9.7-12.2) 08/23/17 15:05 INR 1.1 08/23/17 15:05 APTT 19 SECONDS (21-34) L 08/23/17 15:05 - Constitutional Appears: No Acute Distress - Head Exam Head Exam: ATRAUMATIC, NORMAL INSPECTION, NORMOCEPHALIC - Respiratory Exam Respiratory Exam: NORMAL BREATHING PATTERN. absent: Respiratory Distress Additional comments: Right pigtail catheter to wall suction - Neurological Exam Neurological Exam: Alert, Oriented x3 - Psychiatric Exam Psychiatric exam: Normal Affect, Normal Mood - Skin Skin Exam: Dry, Intact Assessment and Plan - Assessment and Plan (Free Text) Assessment: 47yo F w/ R-pneumothorax, s/p pigtail catheter 08/24 -Continue pigtail to wall suction -Place chest tube to Waterseal on Monday at 6am, Will get CXR 3 hours after suction removed and re-asssess -If pneumothorax re-accumulates will plan for surgery likely Monday DW Dr Sepulveda and Dr. Baez <Nathan Sepulveda B - Last Filed: 08/26/17 19:37> Objective - Vital Signs/Intake and Output Vital Signs (last 24 hours): Temp Pulse Resp BP Pulse Ox 98.4 F 82 20 128/85 98 08/26/17 15:00 08/26/17 15:00 08/26/17 15:00 08/26/17 15:00 08/26/17 15:00 Intake and Output: 08/26/17 08/27/17 18:59 06:59 Output Total 0 Balance 0 - Medications Medications: Current Medications Acetaminophen (Tylenol 325mg Tab) 650 mg PO Q6 PRN PRN Reason: Headache Last Admin: 08/25/17 20:06 Dose: 650 mg Nicotine (Nicoderm Cq) 1 patch TD DAILY ANGELICA Last Admin: 08/26/17 10:14 Dose: Not Given Ondansetron HCl (Zofran Inj) 4 mg IVP Q6 PRN PRN Reason: Nausea/Vomiting Last Admin: 08/25/17 04:38 Dose: 4 mg Oxycodone/Acetaminophen (Percocet 5/325 Mg Tab) 1 tab PO Q6H PRN PRN Reason: Pain, moderate (4-7) Stop: 08/26/17 20:48 Last Admin: 08/25/17 04:35 Dose: 1 tab - Labs Labs: 08/24/17 04:55 08/24/17 04:55 PT 11.8 SECONDS (9.7-12.2) 08/23/17 15:05 INR 1.1 08/23/17 15:05 APTT 19 SECONDS (21-34) L 08/23/17 15:05 Attending/Attestation - Attestation I have fully participated in the care of the patient.: Yes I have reviewed all pertinent clinical information, including history, physical exam and plan: Yes Notes (Text): Pt with Right chest tube for pneumothorax Pigtail tube to wall suction Local wound care c/w current mx Plan d.w pt and primary team in detail 08/26/17 19:37
[2017-08-26] MEDS ORDERED: Pneumococcal 23-Valent Vaccine IM ONE (11:00)
[2017-08-26] MEDS: Oxycodone/Acetaminophen 5/325 mg Tab PO PRN (20:42)
--- NOTE | 2017-08-27 09:39 | CP.PCM.PN ---
Subjective - Date & Time of Evaluation Date of Evaluation: 08/27/17 Time of Evaluation: 07:20 - Subjective Subjective: Patietn seen and examined at bedside this AM. No adverse events overnight, no tube output, no respiratory distress, no pain. Objective - Vital Signs/Intake and Output Vital Signs (last 24 hours): Temp Pulse Resp BP Pulse Ox 98.1 F 92 H 20 120/77 97 08/27/17 07:10 08/27/17 07:10 08/27/17 07:10 08/27/17 07:10 08/27/17 07:10 Intake and Output: 08/27/17 08/27/17 06:59 18:59 Output Total 0 Balance 0 - Medications Medications: Current Medications Acetaminophen (Tylenol 325mg Tab) 650 mg PO Q6 PRN PRN Reason: Headache Last Admin: 08/25/17 20:06 Dose: 650 mg Nicotine (Nicoderm Cq) 1 patch TD DAILY ANGELICA Last Admin: 08/26/17 10:14 Dose: Not Given Ondansetron HCl (Zofran Inj) 4 mg IVP Q6 PRN PRN Reason: Nausea/Vomiting Last Admin: 08/25/17 04:38 Dose: 4 mg - Labs Labs: 08/24/17 04:55 08/24/17 04:55 PT 11.8 SECONDS (9.7-12.2) 08/23/17 15:05 INR 1.1 08/23/17 15:05 APTT 19 SECONDS (21-34) L 08/23/17 15:05 - Constitutional Appears: Well, Non-toxic, No Acute Distress - Head Exam Head Exam: ATRAUMATIC, NORMOCEPHALIC - Eye Exam Eye Exam: Normal appearance. absent: Conjunctival injection, Scleral icterus - ENT Exam ENT Exam: Mucous Membranes Moist, Normal Oropharynx - Respiratory Exam Respiratory Exam: NORMAL BREATHING PATTERN. absent: Accessory Muscle Use, Respiratory Distress Additional comments: pigtail dressing c/d/i - Cardiovascular Exam Cardiovascular Exam: RRR - GI/Abdominal Exam GI & Abdominal Exam: absent: Distended - Neurological Exam Neurological Exam: Alert, Awake, Oriented x3 - Psychiatric Exam Psychiatric exam: Normal Affect, Normal Mood - Skin Skin Exam: Dry, Normal Color, Warm Assessment and Plan - Assessment and Plan (Free Text) Assessment: 47F with pneumothorax of the right middle and upper lobes POD#3 s/p pigtail catheter insertion by IR Plan: Place chest pigtail catheter to water seal and repeat CXR at noon may D/C Chest pigtail catheter depending on results of CXR PRN pain medication Encourage ambulation and incentive spirometer use Discussed with Dr. Nestor Zavala, PGY2
--- NOTE | 2017-08-27 12:05 | RAD ---
HISTORY: reassess for right pneumothorax, tube on waterseal. COMPARISON: Comparison chest 08/25/2017 FINDINGS: Re- demonstrated is in situ pigtail chest tube catheter overlying the right CP angle region. LUNGS: No evidence of pneumothorax. There appears to be some minor right basilar atelectasis with questionable tiny right effusion. PLEURA: As above. No apparent CARDIOVASCULAR: Normal. OSSEOUS STRUCTURES: No significant abnormalities. VISUALIZED UPPER ABDOMEN: Normal. OTHER FINDINGS: None. IMPRESSION: In situ pigtail chest tube catheter overlying the right CP angle region. No evidence of pneumothorax. Suspect minor right basilar atelectasis with questionable tiny effusion
--- NOTE | 2017-08-28 07:41 | CP.PCM.PN ---
<Jessi Barajas - Last Filed: 08/28/17 07:38> Subjective - Date & Time of Evaluation Date of Evaluation: 08/28/17 Time of Evaluation: 07:38 - Subjective Subjective: Surgery - Dr. Sepulveda / Dr Baez (Thoracic) Pt S&E. NAEO. Pt denies any chest pain or SOB. Chest tube has been to waterseal since yesterday AM. She has been OOB ambulating. No complaints. Objective - Vital Signs/Intake and Output Vital Signs (last 24 hours): Temp Pulse Resp BP Pulse Ox 98.1 F 88 20 119/83 96 08/28/17 04:00 08/28/17 04:00 08/28/17 04:00 08/28/17 04:00 08/28/17 04:00 Intake and Output: 08/28/17 08/28/17 06:59 18:59 Output Total 0 Balance 0 - Medications Medications: Current Medications Acetaminophen (Tylenol 325mg Tab) 650 mg PO Q6 PRN PRN Reason: Headache Last Admin: 08/27/17 21:54 Dose: 650 mg Nicotine (Nicoderm Cq) 1 patch TD DAILY ANGELICA Last Admin: 08/27/17 10:05 Dose: Not Given Ondansetron HCl (Zofran Inj) 4 mg IVP Q6 PRN PRN Reason: Nausea/Vomiting Last Admin: 08/25/17 04:38 Dose: 4 mg - Labs Labs: 08/24/17 04:55 08/24/17 04:55 PT 11.8 SECONDS (9.7-12.2) 08/23/17 15:05 INR 1.1 08/23/17 15:05 APTT 19 SECONDS (21-34) L 08/23/17 15:05 - Constitutional Appears: No Acute Distress - Head Exam Head Exam: ATRAUMATIC, NORMAL INSPECTION, NORMOCEPHALIC - Eye Exam Eye Exam: Normal appearance - Respiratory Exam Respiratory Exam: NORMAL BREATHING PATTERN. absent: Respiratory Distress Additional comments: Cpigtail chest tube to waterseal, No airleak - Cardiovascular Exam Cardiovascular Exam: REGULAR RHYTHM - Neurological Exam Neurological Exam: Alert, Oriented x3 - Psychiatric Exam Psychiatric exam: Normal Affect, Normal Mood - Skin Skin Exam: Dry, Intact Assessment and Plan - Assessment and Plan (Free Text) Assessment: 47F with Right pneumothorax s/p Pigtail catheter on 08/24 Plan: Remove pigtail chest tube Post-removal CXR 3 hours later Encourage ambulation and incentive spirometer DW Dr Sepulveda and Dr. Baez <Nathan Sepulveda B - Last Filed: 08/29/17 19:52> Objective - Vital Signs/Intake and Output Vital Signs (last 24 hours): Temp Pulse Resp BP Pulse Ox 97.9 F 78 20 120/79 100 08/28/17 07:20 08/28/17 08:03 08/28/17 07:20 08/28/17 07:20 08/28/17 07:20 - Labs Labs: 08/24/17 04:55 08/24/17 04:55 PT 11.8 SECONDS (9.7-12.2) 08/23/17 15:05 INR 1.1 08/23/17 15:05 APTT 19 SECONDS (21-34) L 08/23/17 15:05 Attending/Attestation - Attestation I have personally seen and examined this patient.: Yes I have fully participated in the care of the patient.: Yes I have reviewed all pertinent clinical information, including history, physical exam and plan: Yes Notes (Text): Pt was seen and examined at bedside Agree with above note and assessment Pt is improved clinically Chest tube management as per Dr.Krause Megan adhikariw pt in detail Risk and benefit explained in detail.
[2017-08-28 07:48] VITALS: BP 120/79; TEMP 97.9; O2SAT 100
--- NOTE | 2017-08-28 08:32 | RAD ---
HISTORY: re-evaluate R pneumothorax COMPARISON: 08/27/2017 FINDINGS: LUNGS: No active pulmonary disease. PLEURA: Right pleural pigtail catheter unchanged. No pneumothorax. No pleural effusion. CARDIOVASCULAR: Normal. OSSEOUS STRUCTURES: No significant abnormalities. VISUALIZED UPPER ABDOMEN: Normal. OTHER FINDINGS: None. IMPRESSION: Right pleural pigtail catheter. No pneumothorax. Otherwise unremarkable.
[2017-08-28 12:18] VITALS: PULSE 78
--- NOTE | 2017-08-28 13:44 | RAD ---
HISTORY: Status post chest tube removal COMPARISON: Comparison made with prior chest radiograph earlier same day FINDINGS: LUNGS: Interval removal right-sided pigtail chest tube catheter. No obvious right-sided pneumothorax identified. PLEURA: No significant pleural effusion identified, no pneumothorax apparent. CARDIOVASCULAR: Normal. OSSEOUS STRUCTURES: No significant abnormalities. VISUALIZED UPPER ABDOMEN: Normal. OTHER FINDINGS: None. IMPRESSION: Interval removal right-sided pigtail chest tube catheter. No obvious right-sided pneumothorax identified.
--- NOTE | 2017-08-28 14:13 | CP.PCM.DIS ---
Provider - Provider Date of Admission: 08/23/17 18:25 Attending physician: Fifi Vargas MD Time Spent in preparation of Discharge (in minutes): 5 Hospital Course - Lab Results Lab Results: Most Recent Lab Values WBC 11.1 K/uL (4.8-10.8) H 08/24/17 04:55 RBC 4.09 Mil/uL (3.80-5.20) 08/24/17 04:55 Hgb 13.1 g/dL (11.0-16.0) 08/24/17 04:55 Hct 37.7 % (34.0-47.0) 08/24/17 04:55 MCV 92.1 fL (81.0-99.0) 08/24/17 04:55 MCH 32.0 pg (27.0-31.0) H 08/24/17 04:55 MCHC 34.7 g/dL (33.0-37.0) 08/24/17 04:55 RDW 12.7 % (11.5-14.5) 08/24/17 04:55 Plt Count 372 K/uL (130-400) 08/24/17 04:55 MPV 8.5 fL (7.2-11.7) 08/24/17 04:55 Neut % (Auto) 52.3 % (50.0-75.0) 08/24/17 04:55 Lymph % (Auto) 36.4 % (20.0-40.0) 08/24/17 04:55 [place] % (Auto) 8.1 % (0.0-10.0) 08/24/17 04:55 Eos % (Auto) 2.8 % (0.0-4.0) 08/24/17 04:55 Baso % (Auto) 0.4 % (0.0-2.0) 08/24/17 04:55 Neut # (Auto) 5.8 K/uL (1.8-7.0) 08/24/17 04:55 Lymph # (Auto) 4.0 K/uL (1.0-4.3) 08/24/17 04:55 [place] # (Auto) 0.9 K/uL (0.0-0.8) H 08/24/17 04:55 Eos # (Auto) 0.3 K/uL (0.0-0.7) 08/24/17 04:55 Baso # (Auto) 0.0 K/uL (0.0-0.2) 08/24/17 04:55 PT 11.8 SECONDS (9.7-12.2) 08/23/17 15:05 INR 1.1 08/23/17 15:05 APTT 19 SECONDS (21-34) L 08/23/17 15:05 Sodium 144 mmol/L (132-148) 08/24/17 04:55 Potassium 3.9 mmol/L (3.6-5.2) 08/24/17 04:55 Chloride 107 mmol/L (98-107) 08/24/17 04:55 Carbon Dioxide 24 mmol/L (22-30) 08/24/17 04:55 Anion Gap 17 (10-20) 08/24/17 04:55 BUN 9 mg/dL (7-17) 08/24/17 04:55 Creatinine 0.7 mg/dL (0.7-1.2) 08/24/17 04:55 Est GFR ( Amer) > 60 08/24/17 04:55 Est GFR (Non-Af Amer) > 60 08/24/17 04:55 Random Glucose 109 mg/dL (65-105) H 08/24/17 04:55 Calcium 8.9 mg/dl (8.6-10.4) 08/24/17 04:55 Total Bilirubin 0.6 mg/dL (0.2-1.3) 08/23/17 15:05 AST 28 U/L (14-36) 08/23/17 15:05 ALT 14 U/L (9-52) 08/23/17 15:05 Alkaline Phosphatase 62 U/L (38-126) 08/23/17 15:05 Troponin I < 0.0120 ng/mL (0.00-0.120) 08/24/17 04:55 Total Protein 8.2 g/dL (6.3-8.3) 08/23/17 15:05 Albumin 4.3 g/dL (3.5-5.0) 08/23/17 15:05 Globulin 3.9 gm/dL (2.2-3.9) 08/23/17 15:05 Albumin/Globulin Ratio 1.1 (1.0-2.1) 08/23/17 15:05 Urine Color Straw (YELLOW) 08/23/17 15:32 Urine Clarity Clear (Clear) 08/23/17 15:32 Urine pH 6.0 (5.0-8.0) 08/23/17 15:32 Ur Specific [place] 1.008 (1.003-1.030) 08/23/17 15:32 Urine Protein Negative mg/dL (NEGATIVE) 08/23/17 15:32 Urine Glucose (UA) Normal mg/dL (Normal) 08/23/17 15:32 Urine Ketones Negative mg/dL (NEGATIVE) 08/23/17 15:32 Urine Blood 3+ (NEGATIVE) H 08/23/17 15:32 Urine Nitrate Negative (NEGATIVE) 08/23/17 15:32 Urine Bilirubin Negative (NEGATIVE) 08/23/17 15:32 Urine Urobilinogen Normal mg/dL (0.2-1.0) 08/23/17 15:32 Ur Leukocyte Esterase Neg [place]aye/uL (Negative) 08/23/17 15:32 Urine WBC (Auto) < 1 /hpf (0-5) 08/23/17 15:32 Urine RBC (Auto) 2 /hpf (0-3) 08/23/17 15:32 Ur Squamous Epith Cells < 1 /hpf (0-5) 08/23/17 15:32 - Hospital Course Hospital Course: 47 yo F admitted to the hospital on 08/23 with right chest pain, found to have Right pneumothorax. She had a heimlich valve placed which was unsuccessful. The following day IR placed a pigtail catheter and CXR the following day showed good lung re-expansion. She was monitored over the weekend and seen by Cardiothoracic surgery, Dr. Baez. Reccomendations were followed to continue chest tube to suction for 48 hours and placed to waterseal on 08/27. On 08/28 her CXR remained with full lung re-expansion, the chest tube was removed and repeat CXR showed that the lung stayed up. She was felt stable for discharge home. Discharge Exam - Head Exam Head Exam: ATRAUMATIC, NORMAL INSPECTION, NORMOCEPHALIC - Eye Exam Eye Exam: Normal appearance - Respiratory Exam Respiratory Exam: NORMAL BREATHING PATTERN. absent: Respiratory Distress Additional comments: pigtail catheter removed. sterile dressing placed. - Neurological Exam Neurological exam: Alert, Oriented x3 - Psychiatric Exam Psychiatric exam: Normal Affect, Normal Mood - Skin Skin Exam: Dry, Intact Discharge Plan - Follow Up Plan Condition: STABLE Disposition: HOME/ ROUTINE Instructions: Pneumothorax (Collapsed Lung) (DC) Additional Instructions: Please follow up with Dr. Vargas as needed. If you have a recurrence of symptoms, please return to the hospital. You may resume a normal diet and normal activities. Referrals: Fifi Vargas MD [Staff Provider] -
== END 2017-08-28 15:49 | disposition home or self-care (01) | DRG 95 ==
LOC: C.ER 13:01 → C.9E 18:25 → C.3T 20:42 → C.9E 21:08 → C.6T 22:03
PROVIDERS: ADMIT Specialist; ATTEND Specialist
PROC: 0W9930Z Drainage of Right Pleural Cavity with Drainage Device, Percutaneous Approach (ICD-10-PCS; principal; 2017-08-24)
DX: J93.83 Other pneumothorax (principal); F17.210 Nicotine dependence, cigarettes, uncomplicated

== ENCOUNTER 2017-09-07 20:22 | Inpatient (IN) | payer OTHER ==
[2017-09-07 20:23] VITALS: BMI 24.0
[2017-09-07] MEDS ORDERED: Sodium Chloride 0.9% 1,000 ML IV STA (21:54)
--- NOTE | 2017-09-07 22:00 | C.PDOC ---
History Of Present Illness <Dinorah Polanco - Last Filed: 09/07/17 22:17> <Hugh Esparza - Last Filed: 09/08/17 21:49> 47 y/o female presents to the ED complaining of congestion and cough since yesterday. Associated with subjective fever. Of note, patient was seen here on admitted for pneumothorax under Dr. Cuevsa service, had chest tube, and was discharged after improvement. Currently she denies any chest pain, SOB, or other complaints. (Dinorah Polanco) History Per: Patient History/Exam Limitations: no limitations Onset/Duration Of Symptoms: Days Current Symptoms Are (Timing): Still Present <Dinorah Polanco - Last Filed: 09/07/17 22:17> <Hugh Esparza - Last Filed: 09/08/17 21:49> Time Seen by Provider: 09/07/17 20:58 Chief Complaint (Nursing): Cough, Cold, Congestion Past Medical History Reviewed: Historical Data, Nursing Documentation, Vital Signs - Medical History PMH: Pneumothorax Denies: Chronic Kidney Disease Surgical History: Appendectomy (2001) Family History: States: Unknown Family Hx - Social History Hx Tobacco Use: Yes (Smoker) Hx Alcohol Use: Yes (Occ. Beer) Hx Substance Use: No - Immunization History Hx Influenza Vaccination: No <Dinorah Polanco - Last Filed: 09/07/17 22:17> Vital Signs: Last Vital Signs Temp 99.2 F 09/08/17 16:00 Pulse 105 H 09/08/17 16:00 Resp 20 09/08/17 16:00 BP 141/95 H 09/08/17 16:00 Pulse Ox 99 09/08/17 16:00 - [facility] Procedures DRAINAGE OF R PLEURAL CAV WITH DRAIN DEV, PERC APPROACH (08/23/17) Review Of Systems Except As Marked, All Systems Reviewed And Found Negative. Constitutional: Positive for: Fever ENT: Positive for: Nose Congestion Cardiovascular: Negative for: Chest Pain, Palpitations Respiratory: Positive for: Cough. Negative for: Shortness of Breath Gastrointestinal: Negative for: Nausea, Vomiting <Dinorah Polanco - Last Filed: 09/07/17 22:17> Physical Exam - Physical Exam Appears: Non-toxic, No Acute Distress Skin: Normal Color, Warm, Dry Head: Atraumatic, Normacephalic Eye(s): bilateral: Normal Inspection, PERRL, EOMI Oral Mucosa: Moist Neck: Normal ROM, Supple Chest: Symmetrical Cardiovascular: Rhythm Regular, No Murmur Respiratory: No Rhonchi, No Wheezing, Other (No breath sounds in right lung moy) Gastrointestinal/Abdominal: Soft, No Tenderness, No Distention Extremity: Bilateral: Atraumatic, No Pedal Edema, Normal Color And Temperature, Normal ROM Pulses: Left Radial: Normal, Right Radial: Normal Neurological/Psych: Oriented x3, Normal Speech, Normal Motor, Normal Sensation <Dinorah Polanco - Last Filed: 09/07/17 22:17> ED Course And Treatment - Laboratory Results Result Diagrams: 09/07/17 22:05 O2 Sat by Pulse Oximetry: 99 (RA) Pulse Ox Interpretation: Normal - Radiology CXR: Interpreted by Ak CXR Interpretation: Yes: Pnemothorax (Right loculated mid and lower lobes pneumothorax) Progress Note: Chest X-ray obtained, and appears suggestive of right-sided pneumothorax. Paged Dr. Vargas, who requests that surgery on-call be paged. Ordered labs and EKG. Patient started on IV fluids. was paged. Spoke with general surgery resident who will come down to ER to evaluate this patient. Patient was transferred from fast track to the main ED. Care of this patient was transferred to the attending Physician at 22:10. <Dinorah Polanco - Last Filed: 09/07/17 22:17> - Laboratory Results Result Diagrams: 09/07/17 22:05 09/07/17 22:05 <Hugh Esparza - Last Filed: 09/08/17 21:49> Medical Decision Making <Dinorah Polanco - Last Filed: 09/07/17 22:17> <Hugh Esparza - Last Filed: 09/08/17 21:49> Medical Decision Making: case discussed with surg[facility] resident,who came bedside placed ct. case discussed with dr pickering. requests medicine admission to tele. hemodynamicallystable o2 sat 99% (Hugh Esparza) Disposition - Disposition Disposition Time: 22:21 <Dinorah Polanco - Last Filed: 09/07/17 22:17> <Hugh Esparza - Last Filed: 09/08/17 21:49> - Disposition Disposition: HOSPITALIZED Condition: FAIR - Clinical Impression Clinical Impression: Pneumothorax - PA / HOSPITAL MEDICAL ASSISTANT / Resident Statement MD/DO has reviewed & agrees with the documentation as recorded. - Scribe Statement The provider has reviewed the documentation as recorded by the Scribe (Radha Hidalgo) <Dinorah Polanco - Last Filed: 09/07/17 22:17> <Hugh Esparza - Last Filed: 09/08/17 21:49> - Scribe Statement All medical record entries made by the Scribe were at my direction and personally dictated by me. I have reviewed the chart and agree that the record accurately reflects my personal performance of the history, physical exam, medical decision making, and the department course for this patient. I have also personally directed, reviewed, and agree with the discharge instructions and disposition. (Dinorah Polanco)
[2017-09-07 22:08] LABS: BASO # 0.1 K/uL (0.0-0.2); BASO % 0.6 % (0.0-2.0); EOS # 0.4 K/uL (0.0-0.7); EOS % 2.7 % (0.0-4.0); HEMOGLOBIN 13.7 g/dL (11.0-16.0); LYMPH # 3.5 K/uL (1.0-4.3); MEAN CELL VOLUME 93.2 fL (81.0-99.0); MEAN CORPUSCULAR HEMOGLOBIN 32.1 pg (27.0-31.0); MEAN CORPUSCULAR HGB CONC 34.4 g/dL (33.0-37.0); MEAN PLATELET VOLUME 8.2 fL (7.2-11.7); MONO % 7.4 % (0.0-10.0); NEUT # 9.1 K/uL (1.8-7.0); NEUT % 64.3 % (50.0-75.0); RBC 4.28 Mil/uL (3.80-5.20); RED CELL DISTRIBUTION WIDTH 12.8 % (11.5-14.5); WHITE BLOOD COUNT 14.1 K/uL (4.8-10.8)
[2017-09-07] MEDS ORDERED: Lidocaine 1%/Epinephrine 1:100000 30 ml vial IJ ONE (22:10)
[2017-09-07] MEDS ORDERED: Sodium Chloride 0.9% 1,000 ML ONE (22:14)
[2017-09-07 22:15] LABS: PROTHROMBIN TIME 11.2 SECONDS (9.7-12.2)
[2017-09-07] MEDS ORDERED: HYDROmorphone 1 mg/ml ISec IVP STA (23:03)
[2017-09-07 23:45] LABS: ALB/GLOB RATIO 1.2 (1.0-2.1); ALBUMIN 4.2 g/dL (3.5-5.0); ALT/SGPT 25 U/L (9-52); AST/SGOT 20 U/L (14-36); BLOOD UREA NITROGEN 9 mg/dL (7-17); CALCIUM 9.5 mg/dl (8.6-10.4); GFR AFRICAN-AMERICAN > 60; GFR NON-AFRICAN AMERICAN > 60
--- NOTE | 2017-09-08 00:18 | CP.PCM.CON ---
<Omero Zeng - Last Filed: 09/08/17 00:21> History of Present Illness - History of Present Illness History of Present Illness: Surgery: Dr. Sepulveda Reason for consult: recurrent pneumothorax CC: upper right back pain and cough HPI: Patient is a 47 y/o female with significant history of recent hospitalization for right side pneumothorax presents complaining of cough and right upper back pain that has been present for the past two days. She reports subjective fevers. Denies n/v/sputum production. She reports similar symptoms when she was here with pneumothorax. She reports pain in the upper back mainly with deep inhalation. She denies central chest pain, dizziness, or syncope. Daughter at bedside. PMH: pneumothorax, spontaneous PSH: x2, breast cyst excision, appendectomy Social: current light smoker, denies ETOH or drug abuse Review of Systems - Constitutional Constitutional: Fever. absent: Anorexia, Chills - EENT Eyes: absent: Blurred Vision, Change in Vision Nose/Mouth/Throat: absent: Nasal Congestion, Nose Pain - Cardiovascular Cardiovascular: absent: Diaphoresis, Leg Edema, Lightheadedness, Palpitations, Pedal Edema, Syncope - Respiratory Respiratory: Cough, Dyspnea, Pain on Inspiration, Chest Congestion, Pain with Coughing. absent: Wheezing, Excessive Mucous Production - Gastrointestinal Gastrointestinal: absent: Abdominal Pain, Bloating - Genitourinary Genitourinary: absent: Difficulty Urinating, Hematuria - Musculoskeletal Musculoskeletal: absent: Muscle Cramps, Muscle Weakness - Integumentary Integumentary: absent: Sores, Jaundice - Neurological Neurological: absent: Abnormal Gait, Dizziness - Psychiatric Psychiatric: absent: Anxiety, Depression - Endocrine Endocrine: absent: Polydipsia, Polyphagia - Hematologic/Lymphatic Hematologic: absent: Easy Bleeding, Easy Bruising Past Patient History - Past Medical History & Family History Past Medical History?: Yes - Past Social History Smoking Status: Light Smoker < 10 Cigarettes Daily - CARDIAC Hx Cardiac Disorders: No - PULMONARY Hx Respiratory Disorders: No - NEUROLOGICAL Hx Neurological Disorder: No - HEENT Hx HEENT Problems: No - RENAL Hx Chronic Kidney Disease: No - ENDOCRINE/METABOLIC Hx Endocrine Disorders: No - HEMATOLOGICAL/ONCOLOGICAL Hx Blood Disorders: No - INTEGUMENTARY Hx Dermatological Problems: No - MUSCULOSKELETAL/RHEUMATOLOGICAL Hx Falls: No - GASTROINTESTINAL Hx Gastrointestinal Disorders: No - GENITOURINARY/GYNECOLOGICAL Hx Genitourinary Disorders: No - PSYCHIATRIC Hx Substance Use: No - SURGICAL HISTORY Hx Appendectomy: Yes (2001) - ANESTHESIA Hx Anesthesia: Yes Hx Anesthesia Reactions: No Hx Malignant Hyperthermia: No Meds Allergies/Adverse Reactions: Allergies Allergy/AdvReac Type Severity Reaction Status Date / Time No Known Allergies Allergy Verified 07/21/15 18:47 - Medications Medications: Current Medications Lidocaine (Lidoderm) 1 ea TD DAILY ANGELICA Morphine Sulfate (Morphine) 4 mg IVP Q4 PRN PRN Reason: Pain, severe (8-10) Ondansetron HCl (Zofran Inj) 4 mg IVP Q4 PRN PRN Reason: Nausea/Vomiting Oxycodone/Acetaminophen (Percocet 5/325 Mg Tab) 2 tab PO Q4H PRN PRN Reason: Pain, moderate (4-7) Stop: 09/11/17 00:11 Physical Exam - Constitutional Appears: Non-toxic, No Acute Distress - Head Exam Head Exam: ATRAUMATIC, NORMOCEPHALIC - Eye Exam Eye Exam: EOMI, Normal appearance - ENT Exam ENT Exam: Mucous Membranes Moist - Respiratory Exam Respiratory Exam: NORMAL BREATHING PATTERN. absent: Respiratory Distress - Cardiovascular Exam Cardiovascular Exam: Tachycardia, REGULAR RHYTHM - GI/Abdominal Exam GI & Abdominal Exam: Soft. absent: Distended, Tenderness - Extremities Exam Extremities exam: Positive for: normal inspection. Negative for: calf tenderness - Neurological Exam Neurological exam: Alert, Oriented x3 - Psychiatric Exam Psychiatric exam: Normal Affect, Normal Mood - Skin Skin Exam: Normal Color, Warm Results - Vital Signs Recent Vital Signs: Last Vital Signs Temp 99.8 F H 09/07/17 20:37 Pulse 101 H 09/07/17 23:57 Resp 21 09/07/17 23:57 BP 131/85 09/07/17 23:57 Pulse Ox 100 09/07/17 23:57 - Labs Result Diagrams: 09/07/17 22:05 09/07/17 22:05 Labs: Laboratory Results - last 24 hr 09/07/17 09/07/17 09/07/17 21:55 22:05 22:05 WBC 14.1 H RBC 4.28 Hgb 13.7 Hct 39.9 MCV 93.2 MCH 32.1 H MCHC 34.4 RDW 12.8 Plt Count 402 H MPV 8.2 Neut % (Auto) 64.3 Lymph % (Auto) 25.0 [place] % (Auto) 7.4 Eos % (Auto) 2.7 Baso % (Auto) 0.6 Neut # (Auto) 9.1 H Lymph # (Auto) 3.5 [place] # (Auto) 1.0 H Eos # (Auto) 0.4 Baso # (Auto) 0.1 PT 11.2 INR 1.0 APTT 29 Sodium 143 Potassium 4.0 Chloride 105 Carbon Dioxide 28 Anion Gap 14 BUN 9 Creatinine 0.7 Est GFR ( Amer) > 60 Est GFR (Non-Af Amer) > 60 Random Glucose 151 H Calcium 9.5 Total Bilirubin 0.6 AST 20 ALT 25 Alkaline Phosphatase 70 Total Protein 7.8 Albumin 4.2 Globulin 3.6 Albumin/Globulin Ratio 1.2 - Impressions Impression: CXR with right pneumothorax Assessment & Plan - Assessment and Plan (Free Text) Assessment: 47 y/o female w/ recurrent right sided pneumothorax Plan: -chest tube placed bedside -position confirmed with CXR -pnx not fully resolved, keep CT on suction and monitor CT output -leave dressing in place and reinforce as needed -percocet/morphine for pain -CXR in am -recommend possible CT surgeon eval in am for pnx recurrence -d[facility] Procedure: CT insertion, right side Indication: right pneumothorax Procedure in detail: Informed consent was obtained with RN physical therapy asst at bedside discussing risks and benefits of chest tube insertion. Patient and daughter agreeable to procedure. Patient placed in supine position with right arm over head. Time out was had with nurse in room confirming patient and side for chest tube placement. Right lateral chest was prepped and draped in the usual sterile fashion using cholrahexadine prep. 4-5th intercostal spaces were identified using landmarks and site for insertion was infiltrated with 15cc of lidocaine 1% with epi. 1.5cm incision was made and soft tissues with innoculated with rafael clamp. Clamp was prgressed through the soft tissues in a spreading technique over presumed 5th rib. Once rafael enter chest, a gush of air returned and a 28 FR chest tube was inserted in a posterior superior fashion stopping at 16cm at chest wall. Tube was sutured into place using 0 silk suture above and below tube. Chest tube hooked to pleurovac and placed on - 20mmHg continuous suction. No pleural fluid was obtained. Sterile dressing was applied and CXR was used to confirm placement. Chest tube in fissure and retracted 2cm for attempt at full lung expansion. now 14cm at chest Patient tolerated procedure well. Complications: none Specimens: none [facility] PGY3 - Date & Time Date: 09/08/17 Time: 00:35 Chest Tube Insertion - Chest Tube Placement Indication: Pneumothorax Consent Obtained: Written Procedural Sedation: None Procedure Description: Prepped W/Betadine, Sterile Drape Applied, Local Anes Used: (15cc lidocaine w/ epi ) Incision Completed And Tube Inserted At: at 4th incostal space Post Insertion Procedure(s): Tube Sutured To Chest Wall, CXR Completed To Confirm Placement, Tube Connected To Suction, No Air Leak Noted <Nathan Sepulveda - Last Filed: 09/16/17 19:07> Results - Vital Signs Recent Vital Signs: Last Vital Signs Temp 98.1 F 09/16/17 07:50 Pulse 81 09/16/17 07:50 Resp 20 09/16/17 07:50 BP 125/84 09/16/17 07:50 Pulse Ox 97 09/16/17 07:50 - Labs Result Diagrams: 09/16/17 06:20 09/16/17 06:20 Labs: Laboratory Results - last 24 hr 09/15/17 09/15/17 09/16/17 16:47 21:07 06:20 WBC 9.9 RBC 3.40 L Hgb 11.1 Hct 31.8 L MCV 93.6 MCH 32.7 H MCHC 34.9 RDW 13.2 Plt Count 404 H MPV 8.0 Neut % (Auto) 60.8 Lymph % (Auto) 23.3 [place] % (Auto) 10.0 Eos % (Auto) 5.4 H Baso % (Auto) 0.5 Neut # (Auto) 6.0 Lymph # (Auto) 2.3 [place] # (Auto) 1.0 H Eos # (Auto) 0.5 Baso # (Auto) 0.1 Sodium Potassium Chloride Carbon Dioxide Anion Gap BUN Creatinine Est GFR ( Amer) Est GFR (Non-Af Amer) POC Glucose (mg/dL) 89 136 H Random Glucose Calcium Total Bilirubin AST ALT Alkaline Phosphatase Total Protein Albumin Globulin Albumin/Globulin Ratio 09/16/17 09/16/17 06:20 06:28 WBC RBC Hgb Hct MCV MCH MCHC RDW Plt Count MPV Neut % (Auto) Lymph % (Auto) [place] % (Auto) Eos % (Auto) Baso % (Auto) Neut # (Auto) Lymph # (Auto) [place] # (Auto) Eos # (Auto) Baso # (Auto) Sodium 144 Potassium 3.7 Chloride 105 Carbon Dioxide 26 Anion Gap 16 BUN 8 Creatinine 0.6 L Est GFR ( Amer) > 60 Est GFR (Non-Af Amer) > 60 POC Glucose (mg/dL) 102 Random Glucose 111 H Calcium 9.2 Total Bilirubin 0.3 AST 49 H D ALT 61 H D Alkaline Phosphatase 60 Total Protein 6.6 Albumin 3.2 L Globulin 3.4 Albumin/Globulin Ratio 0.9 L Attending/Attestation - Attestation I have personally seen and examined this patient.: Yes I have fully participated in the care of the patient.: Yes I have reviewed all pertinent clinical information: Yes Notes (Text): Pt was seen and examined at bedside Agree with above note and assessment Pt with R side chest pain and SOB H/o recurrent PTX Labs and radiology reviewed Ass: Right Recurrent PTX Plan : Right chest tube placement Consent IV morphine CXR after Chest tube placement Plan d.w pt in detail Risk and benefit explained in detail.
--- NOTE | 2017-09-08 00:53 | CP.PCM.HP ---
<Roseanna Doyle - Last Filed: 09/08/17 01:27> History of Present Illness - History of Present Illness History of Present Illness: H&P: 47 year old female with no significant past medical history presented to hospital for 2 days of non-productive cough and B/L upper back pain. Patient also had subjective fevers. Denies having any ant chest pain, SOB, abd pain, N/ V/D/C. Patient was recently admitted to hospital on 08/24/17 for right sided penumothorax. At that time, she had right chest tube placed with successful re- expansion of the right lung. In the ED today, patient again had right sided pneumo seen on cxr. Chest tube was placed at bedside by the surgical elastic knitter. However, complete resolution of the pneumo was not achieved. Currently, pt denies having any CP, SOB, abd pain, N/v/D/C, F/C, cough. PMH: pneumothorax, spontaneous PSH: x2, breast cyst excision, appendectomy Social: quite smoking a few weeks ago, denies ETOH or drug abuse Meds: none NKDA Present on Admission - Present on Admission Any Indicators Present on Admission: No Review of Systems - Constitutional Constitutional: Chills, Fever - EENT Eyes: absent: Blurred Vision, Change in Vision Nose/Mouth/Throat: absent: Nasal Congestion, Nasal Discharge, Sore Throat - Cardiovascular Cardiovascular: absent: Chest Pain, Dyspnea, Edema - Respiratory Respiratory: Cough. absent: Dyspnea, Dyspnea on Exertion, Wheezing, Chest Congestion - Gastrointestinal Gastrointestinal: absent: Abdominal Pain, Constipation, Diarrhea, Nausea, Vomiting - Genitourinary Genitourinary: absent: Dysuria, Urinary Frequency - Musculoskeletal Musculoskeletal: Back Pain. absent: Neck Pain, Numbness - Integumentary Integumentary: absent: Acne, Lesions, Rash, Wounds - Neurological Neurological: absent: Tingling, Weakness - Psychiatric Psychiatric: absent: Anxiety, Depression Past Patient History - Past Medical History & Family History Past Medical History?: Yes - Past Social History Smoking Status: Light Smoker < 10 Cigarettes Daily Chewing Tobacco Use: No Cigar Use: No Alcohol: None Drugs: Denies - CARDIAC Hx Cardiac Disorders: No - PULMONARY Hx Respiratory Disorders: No - NEUROLOGICAL Hx Neurological Disorder: No - HEENT Hx HEENT Problems: No - RENAL Hx Chronic Kidney Disease: No - ENDOCRINE/METABOLIC Hx Endocrine Disorders: No - HEMATOLOGICAL/ONCOLOGICAL Hx Blood Disorders: No - INTEGUMENTARY Hx Dermatological Problems: No - MUSCULOSKELETAL/RHEUMATOLOGICAL Hx Falls: No - GASTROINTESTINAL Hx Gastrointestinal Disorders: No - GENITOURINARY/GYNECOLOGICAL Hx Genitourinary Disorders: No - PSYCHIATRIC Hx Substance Use: No - SURGICAL HISTORY Hx Appendectomy: Yes (2001) - ANESTHESIA Hx Anesthesia: Yes Hx Anesthesia Reactions: No Hx Malignant Hyperthermia: No Meds Allergies/Adverse Reactions: Allergies Allergy/AdvReac Type Severity Reaction Status Date / Time No Known Allergies Allergy Verified 07/21/15 18:47 Physical Exam - Constitutional Appears: Non-toxic, No Acute Distress - Head Exam Head Exam: ATRAUMATIC - ENT Exam ENT Exam: Mucous Membranes Moist - Respiratory Exam Respiratory Exam: Clear to Auscultation Bilateral. absent: Rales, Rhonchi, Wheezes Additional comments: no breath sounds over the right lower lung moy - Cardiovascular Exam Cardiovascular Exam: Tachycardia, REGULAR RHYTHM, +S1, +S2. absent: Gallop, Rubs, Systolic Murmur - GI/Abdominal Exam GI & Abdominal Exam: Normal Bowel Sounds, Soft. absent: Distended, Firm, Guarding, Tenderness - Extremities Exam Extremities exam: Negative for: pedal edema, tenderness - Neurological Exam Neurological exam: Alert, Oriented x3 - Psychiatric Exam Psychiatric exam: Normal Affect, Normal Mood - Skin Skin Exam: Dry, Intact, Normal Color, Warm Results - Vital Signs Recent Vital Signs: Last Vital Signs Temp 99.8 F H 09/07/17 20:37 Pulse 101 H 09/07/17 23:57 Resp 21 09/07/17 23:57 BP 131/85 09/07/17 23:57 Pulse Ox 100 09/07/17 23:57 - Labs Result Diagrams: 09/07/17 22:05 09/07/17 22:05 Labs: Laboratory Results - last 24 hr 09/07/17 09/07/17 09/07/17 21:55 22:05 22:05 WBC 14.1 H RBC 4.28 Hgb 13.7 Hct 39.9 MCV 93.2 MCH 32.1 H MCHC 34.4 RDW 12.8 Plt Count 402 H MPV 8.2 Neut % (Auto) 64.3 Lymph % (Auto) 25.0 [place] % (Auto) 7.4 Eos % (Auto) 2.7 Baso % (Auto) 0.6 Neut # (Auto) 9.1 H Lymph # (Auto) 3.5 [place] # (Auto) 1.0 H Eos # (Auto) 0.4 Baso # (Auto) 0.1 PT 11.2 INR 1.0 APTT 29 Sodium 143 Potassium 4.0 Chloride 105 Carbon Dioxide 28 Anion Gap 14 BUN 9 Creatinine 0.7 Est GFR ( Amer) > 60 Est GFR (Non-Af Amer) > 60 Random Glucose 151 H Calcium 9.5 Total Bilirubin 0.6 AST 20 ALT 25 Alkaline Phosphatase 70 Total Protein 7.8 Albumin 4.2 Globulin 3.6 Albumin/Globulin Ratio 1.2 Assessment & Plan - Assessment and Plan (Free Text) Assessment: 47 year old female with no significant past medical hx is admitted for recurrent right pneumothorax. Chest tube was placed at bedside in the ED but did not achieve complete resolution of the pneumo. right sided pneumothorax - Sx, Dr. Sepulveda consulted. Pending recs abotu possible consultation of chest surgeon in am - Chest tube in place on suction - pain management with percocet 2 tabs po q4 prn - NS 100 cc Prophylaxis - SCDs - Lovenox - No indication for GI Case will be discussed with attending, Dr. Summers - Date & Time Date: 09/08/17 Time: 00:54 <Kyle Summers - Last Filed: 09/08/17 06:20> Results - Vital Signs Recent Vital Signs: Last Vital Signs Temp 98.5 F 09/08/17 01:30 Pulse 105 H 09/08/17 01:37 Resp 20 09/08/17 01:30 BP 123/77 09/08/17 01:30 Pulse Ox 95 09/08/17 01:30 - Labs Result Diagrams: 09/07/17 22:05 09/07/17 22:05 Labs: Laboratory Results - last 24 hr 09/07/17 09/07/17 09/07/17 21:55 22:05 22:05 WBC 14.1 H RBC 4.28 Hgb 13.7 Hct 39.9 MCV 93.2 MCH 32.1 H MCHC 34.4 RDW 12.8 Plt Count 402 H MPV 8.2 Neut % (Auto) 64.3 Lymph % (Auto) 25.0 [place] % (Auto) 7.4 Eos % (Auto) 2.7 Baso % (Auto) 0.6 Neut # (Auto) 9.1 H Lymph # (Auto) 3.5 [place] # (Auto) 1.0 H Eos # (Auto) 0.4 Baso # (Auto) 0.1 PT 11.2 INR 1.0 APTT 29 Sodium 143 Potassium 4.0 Chloride 105 Carbon Dioxide 28 Anion Gap 14 BUN 9 Creatinine 0.7 Est GFR ( Amer) > 60 Est GFR (Non-Af Amer) > 60 Random Glucose 151 H Calcium 9.5 Total Bilirubin 0.6 AST 20 ALT 25 Alkaline Phosphatase 70 Total Protein 7.8 Albumin 4.2 Globulin 3.6 Albumin/Globulin Ratio 1.2 Assessment & Plan - Date & Time Date: 09/08/17 (I have seen and examined the patient. I agree with the findings and plan of care as documented by Dr. Doyle. Patient with right side pneumothorax. Surgery consulted. Chest tube placed in ED. Monitor for acute changes.) Time: 06:19 Attending/Attestation - Attestation I have personally seen and examined this patient.: Yes I have fully participated in the care of the patient.: Yes I have reviewed all pertinent clinical information: Yes
[2017-09-08] MEDS: Oxycodone/Acetaminophen 5/325 mg Tab PO PRN ×2 (00:56→14:55)
[2017-09-08] MEDS: Sodium Chloride 0.9% 1,000 ML IV SCH ×3 (02:00→15:03)
[2017-09-08] MEDS: Morphine 4 MG/ML VIAL IVP PRN (06:23)
--- NOTE | 2017-09-08 09:30 | RAD ---
HISTORY: cough COMPARISON: 08/28/2017 TECHNIQUE: Chest PA and lateral FINDINGS: LUNGS: No infiltrate. Large right pneumothorax, loculated in the lower 2/3 of the right marisol thorax. No left pneumothorax. No pleural effusion. PLEURA: As above CARDIOVASCULAR: Normal. OSSEOUS STRUCTURES: No significant abnormalities. VISUALIZED UPPER ABDOMEN: Normal. OTHER FINDINGS: None. IMPRESSION: Large right pneumothorax
--- NOTE | 2017-09-08 09:31 | RAD ---
HISTORY: post COMPARISON: 09/07/2017 9:16 p.m. FINDINGS: LUNGS: Status post right chest tube insertion. No change in size of the loculated right pneumothorax. No pleural effusion. No consolidation. PLEURA: As above CARDIOVASCULAR: Normal. OSSEOUS STRUCTURES: No significant abnormalities. VISUALIZED UPPER ABDOMEN: Normal. OTHER FINDINGS: None. IMPRESSION: Right chest tube insertion. No change in size of right pneumothorax.
--- NOTE | 2017-09-08 09:32 | RAD ---
HISTORY: reassess chest tube COMPARISON: 09/07/2017 at 11:36 p.m. FINDINGS: LUNGS: Large right loculated pneumothorax unchanged. Right chest tube unchanged in position. No left pneumothorax. No pleural effusion. No pulmonary infiltrate. PLEURA: No significant pleural effusion identified, no pneumothorax apparent. CARDIOVASCULAR: Normal. OSSEOUS STRUCTURES: No significant abnormalities. VISUALIZED UPPER ABDOMEN: Normal. OTHER FINDINGS: None. IMPRESSION: Right chest tube unchanged. No change in large right pneumothorax.
--- NOTE | 2017-09-08 09:37 | RAD ---
HISTORY: chest tube COMPARISON: 09/07/2017 at 9:52 p.m. FINDINGS: LUNGS: No change in size of loculated right pneumothorax. Right chest tube unchanged in position. No left pneumothorax. No pleural effusion. No pulmonary infiltrate. PLEURA: As above CARDIOVASCULAR: Normal. OSSEOUS STRUCTURES: No significant abnormalities. VISUALIZED UPPER ABDOMEN: Normal. OTHER FINDINGS: None. IMPRESSION: No change in size of large right pneumothorax, status post right chest tube insertion.
[2017-09-08] MEDS: Enoxaparin 40 mg Syringe SC SCH (10:45)
[2017-09-08] MEDS: Lidocaine 5% Patch TD SCH (10:49)
--- NOTE | 2017-09-08 13:20 | CP.PCM.PN ---
<Dyan Rodriguez - Last Filed: 09/08/17 15:58> Subjective - Date & Time of Evaluation Date of Evaluation: 09/08/17 Time of Evaluation: 09:00 - Subjective Subjective: Medicine Note for Hospitalist- Dr. Fraser Patient was and seen and examined at bedside. Patient reports she has pain at the chest tube insertion site, but is breathing well. Denied fever, chills, headache, chest pain, abdominal pain, n/v/d/c/, or urinary symptoms. Objective - Vital Signs/Intake and Output Vital Signs (last 24 hours): Temp Pulse Resp BP Pulse Ox 99.6 F 99 H 20 136/96 H 97 09/08/17 12:14 09/08/17 12:14 09/08/17 12:14 09/08/17 12:14 09/08/17 12:14 Intake and Output: 09/08/17 09/08/17 06:59 18:59 Intake Total 600 Output Total 400 Balance 200 - Medications Medications: Current Medications Acetaminophen (Tylenol 325mg Tab) 650 mg PO Q6 PRN PRN Reason: Fever >100.4 F Enoxaparin Sodium (Lovenox) 40 mg SC DAILY [facility] Last Admin: 09/08/17 10:45 Dose: 40 mg Sodium Chloride (Sodium Chloride 0.9%) 1,000 mls @ 100 mls/hr IV .Q10H [facility] Last Admin: 09/08/17 02:00 Dose: 100 mls/hr Lidocaine (Lidoderm) 1 ea TD DAILY [facility] Last Admin: 09/08/17 10:49 Dose: 1 ea Morphine Sulfate (Morphine) 4 mg IVP Q4H PRN PRN Reason: Pain, severe (8-10) Last Admin: 09/08/17 06:23 Dose: 4 mg Ondansetron HCl (Zofran Inj) 4 mg IVP Q4 PRN PRN Reason: Nausea/Vomiting Oxycodone/Acetaminophen (Percocet 5/325 Mg Tab) 2 tab PO Q4H PRN PRN Reason: Pain, moderate (4-7) Stop: 09/11/17 00:11 Last Admin: 09/08/17 00:56 Dose: 2 tab - Labs Labs: 09/07/17 22:05 09/07/17 22:05 PT 11.2 SECONDS (9.7-12.2) 09/07/17 21:55 INR 1.0 09/07/17 21:55 APTT 29 SECONDS (21-34) 09/07/17 21:55 - Additional Findings Additional findings: - Constitutional Appears: Non-toxic, No Acute Distress - Head Exam Head Exam: ATRAUMATIC - ENT Exam ENT Exam: Mucous Membranes Moist - Respiratory Exam Respiratory Exam: Clear to Auscultation Bilateral. absent: Rales, Rhonchi, Wheezes Additional comments: no breath sounds over the right lower lung moy, chest tube in place - Cardiovascular Exam Cardiovascular Exam: Tachycardia, REGULAR RHYTHM, +S1, +S2. absent: Gallop, Rubs, Systolic Murmur - GI/Abdominal Exam GI & Abdominal Exam: Normal Bowel Sounds, Soft. absent: Distended, Firm, Guarding, Tenderness - Extremities Exam Extremities exam: Negative for: pedal edema, tenderness - Neurological Exam Neurological exam: Alert, Oriented x3 - Psychiatric Exam Psychiatric exam: Normal Affect, Normal Mood - Skin Skin Exam: Dry, Intact, Normal Color, Warm Assessment and Plan - Assessment and Plan (Free Text) Assessment: 47 year old female with no significant past medical hx is admitted for recurrent right pneumothorax. Chest tube was placed at bedside in the ED but did not achieve complete resolution of the pneumo. Plan: Recurrent Spontaneous Pneumothorax (R) - Surgery consulted Dr. Sepulveda - s/p chest tube insertion 09/08/17 - Cardiothoracic surgery consulted Dr. Baez - will go to OR with Dr. Baez Monday - Chest tube in place on suction 09/08/17 - Pigtail inserted by IR 09/08/17 - pain management with percocet 2 tabs po q4 prn, morphine, lidoderm patch Prophylaxis - SCDs - Lovenox - No indication for GI DW Dyan Cox DO, PGY-1 <Violeta Fraser - Last Filed: 09/12/17 07:57> Objective - Vital Signs/Intake and Output Vital Signs (last 24 hours): Temp Pulse Resp BP Pulse Ox 98.6 F 109 H 20 141/93 H 97 09/12/17 07:25 09/12/17 07:25 09/12/17 07:25 09/12/17 07:25 09/12/17 07:25 Intake and Output: 09/12/17 09/12/17 06:59 18:59 Intake Total 240 Output Total 0 Balance 240 - Medications Medications: Current Medications Acetaminophen (Tylenol 325mg Tab) 650 mg PO Q6 PRN PRN Reason: Fever >100.4 F Last Admin: 09/09/17 21:50 Dose: 650 mg Enoxaparin Sodium (Lovenox) 40 mg SC DAILY [facility] Last Admin: 09/11/17 10:23 Dose: 40 mg Ibuprofen (Motrin Tab) 600 mg PO TID PRN PRN Reason: Pain, moderate (4-7) Lidocaine (Lidoderm) 1 ea TD DAILY [facility] Last Admin: 09/11/17 10:22 Dose: 1 ea Morphine Sulfate (Morphine) 1 mg IVP Q4H PRN PRN Reason: Pain, severe (8-10) Ondansetron HCl (Zofran Inj) 4 mg IVP Q4 PRN PRN Reason: Nausea/Vomiting - Labs Labs: 09/12/17 06:20 09/12/17 06:20 PT 11.2 SECONDS (9.7-12.2) 09/07/17 21:55 INR 1.0 09/07/17 21:55 APTT 29 SECONDS (21-34) 09/07/17 21:55 Attending/Attestation - Attestation I have personally seen and examined this patient.: Yes I have fully participated in the care of the patient.: Yes I have reviewed all pertinent clinical information, including history, physical exam and plan: Yes Notes (Text): Patient was seen and examined by me.
--- NOTE | 2017-09-08 15:04 | PCM.SURG1 ---
Surgeon's Initial Post Op Note - Surgeon's Notes Surgeon: Kwadwo Palacios MD Records Management Clerk: None Pre-Operative Diagnosis: recurrent right ptx Operative Findings: indwelling right large bore chest tube penetrating through bullae possibly intraparenchymal. large right ptx Post-Operative Diagnosis: same Operation Performed: ct guided right pigtail chest tube insertion Specimen/Specimens Removed: n/a Estimated Blood Loss: EBL {In ML}: 0 Date of Surgery/Procedure: 09/08/17 Time of Surgery/Procedure: 13:45
--- NOTE | 2017-09-08 16:33 | CP.PCM.PN ---
<GermanAlpesh aragon - Last Filed: 09/08/17 16:29> Subjective - Date & Time of Evaluation Date of Evaluation: 09/08/17 Time of Evaluation: 16:30 - Subjective Subjective: General Surgery Progress Note for Dr. Sepulveda This pt was seen and examined this AM at bedside no acute events to report overnight. Chest tubve to wall suction without air leaks however X ray shows persistent pneumothorax. She reports she feels marginally better compared with yesterday. Objective - Vital Signs/Intake and Output Vital Signs (last 24 hours): Temp Pulse Resp BP Pulse Ox 98.9 F 118 H 20 137/88 98 09/08/17 14:51 09/08/17 14:51 09/08/17 14:51 09/08/17 14:51 09/08/17 14:51 Intake and Output: 09/08/17 09/08/17 06:59 18:59 Intake Total 1350 Output Total 1200 Balance 150 - Medications Medications: Current Medications Acetaminophen (Tylenol 325mg Tab) 650 mg PO Q6 PRN PRN Reason: Fever >100.4 F Enoxaparin Sodium (Lovenox) 40 mg SC DAILY [facility] Last Admin: 09/08/17 10:45 Dose: 40 mg Lidocaine (Lidoderm) 1 ea TD DAILY [facility] Last Admin: 09/08/17 10:49 Dose: 1 ea Morphine Sulfate (Morphine) 4 mg IVP Q4H PRN PRN Reason: Pain, severe (8-10) Last Admin: 09/08/17 06:23 Dose: 4 mg Ondansetron HCl (Zofran Inj) 4 mg IVP Q4 PRN PRN Reason: Nausea/Vomiting Oxycodone/Acetaminophen (Percocet 5/325 Mg Tab) 2 tab PO Q4H PRN PRN Reason: Pain, moderate (4-7) Stop: 09/11/17 00:11 Last Admin: 09/08/17 14:55 Dose: 2 tab - Labs Labs: 09/07/17 22:05 09/07/17 22:05 PT 11.2 SECONDS (9.7-12.2) 09/07/17 21:55 INR 1.0 09/07/17 21:55 APTT 29 SECONDS (21-34) 09/07/17 21:55 - Constitutional Appears: Non-toxic, No Acute Distress - Head Exam Head Exam: ATRAUMATIC, NORMOCEPHALIC - Eye Exam Eye Exam: EOMI, Normal appearance - ENT Exam ENT Exam: Mucous Membranes Moist - Respiratory Exam Respiratory Exam: NORMAL BREATHING PATTERN - Cardiovascular Exam Cardiovascular Exam: +S1, +S2 - GI/Abdominal Exam GI & Abdominal Exam: Soft. absent: Distended, Guarding, Rigid, Tenderness - Extremities Exam Extremities Exam: Normal Capillary Refill - Neurological Exam Neurological Exam: Alert, Awake - Psychiatric Exam Psychiatric exam: Normal Affect, Normal Mood - Skin Skin Exam: Dry, Intact Assessment and Plan - Assessment and Plan (Free Text) Assessment: This is a 47F with a recurrent spontaneous pneumothorax POD#1 s/p chest tube placement Consult Dr. Baez CT surgery Chest tube to suction Pain control Incentive spirometry D/W Dr. Coco Salazar PGY2 <Nathan Sepulveda B - Last Filed: 09/16/17 19:09> Objective - Vital Signs/Intake and Output Vital Signs (last 24 hours): Temp Pulse Resp BP Pulse Ox 98.1 F 81 20 125/84 97 09/16/17 07:50 09/16/17 07:50 09/16/17 07:50 09/16/17 07:50 09/16/17 07:50 - Labs Labs: 09/16/17 06:20 09/16/17 06:20 PT 11.2 SECONDS (9.7-12.2) 09/07/17 21:55 INR 1.0 09/07/17 21:55 APTT 29 SECONDS (21-34) 09/07/17 21:55 Attending/Attestation - Attestation I have personally seen and examined this patient.: Yes I have fully participated in the care of the patient.: Yes I have reviewed all pertinent clinical information, including history, physical exam and plan: Yes Notes (Text): Pt was seen and examined at bedside Agree with above note and assessment Pt with recurrent PTX CXR with persistent pneumo IR for pigtail placement Repeat CXR in am Plan d.w pt in detail Risk and benefit explained in detail.
--- NOTE | 2017-09-08 19:20 | CARD ---
APPROVED REPORT EKG Measurement Heart [id number] CT [id number] <Conclusion> Sinus tachycardia Otherwise normal ECG
--- NOTE | 2017-09-09 03:19 | CP.PCM.PN ---
<Hannah Walls - Last Filed: 09/09/17 03:19> Subjective - Date & Time of Evaluation Date of Evaluation: 09/09/17 Time of Evaluation: 03:16 - Subjective Subjective: Progress Note for Dr. Fraser Patient seen and examined at bedside. Patient has pain, but is tolerating well. Denies fever, chills, nausea, vomiting, diarrhea, chest pain, shortness of breath. Objective - Vital Signs/Intake and Output Vital Signs (last 24 hours): Temp Pulse Resp BP Pulse Ox 99.3 F 106 H 20 123/84 97 09/08/17 23:10 09/08/17 23:10 09/08/17 23:10 09/08/17 23:10 09/08/17 23:10 Intake and Output: 09/08/17 09/09/17 18:59 06:59 Intake Total 1350 620 Output Total 1200 860 Balance 150 -240 - Medications Medications: Current Medications Acetaminophen (Tylenol 325mg Tab) 650 mg PO Q6 PRN PRN Reason: Fever >100.4 F Last Admin: 09/09/17 00:10 Dose: 650 mg Enoxaparin Sodium (Lovenox) 40 mg SC DAILY [facility] B[facility]S [facility] Last Admin: 09/08/17 10:45 Dose: 40 mg Lidocaine (Lidoderm) 1 ea TD DAILY [facility] 234 BEDS AT [facility] Last Admin: 09/08/17 10:49 Dose: 1 ea Morphine Sulfate (Morphine) 4 mg IVP Q4H PRN PRN Reason: Pain, severe (8-10) Last Admin: 09/08/17 06:23 Dose: 4 mg Ondansetron HCl (Zofran Inj) 4 mg IVP Q4 PRN PRN Reason: Nausea/Vomiting Oxycodone/Acetaminophen (Percocet 5/325 Mg Tab) 2 tab PO Q4H PRN PRN Reason: Pain, moderate (4-7) Stop: 09/11/17 00:11 Last Admin: 09/08/17 14:55 Dose: 2 tab - Labs Labs: 09/07/17 22:05 09/07/17 22:05 PT 11.2 SECONDS (9.7-12.2) 09/07/17 21:55 INR 1.0 09/07/17 21:55 APTT 29 SECONDS (21-34) 09/07/17 21:55 - Additional Findings Additional findings: - Constitutional Appears: Non-toxic, No Acute Distress - Head Exam Head Exam: ATRAUMATIC - ENT Exam ENT Exam: Mucous Membranes Moist - Respiratory Exam Respiratory Exam: Clear to Auscultation Bilateral. absent: Rales, Rhonchi, Wheezes Additional comments: decreased lung sounds right chest, lower lobe chest tube in place - Cardiovascular Exam Cardiovascular Exam: Tachycardia, REGULAR RHYTHM, +S1, +S2. absent: Gallop, Rubs, Systolic Murmur - GI/Abdominal Exam GI & Abdominal Exam: Normal Bowel Sounds, Soft. absent: Distended, Firm, Guarding, Tenderness - Extremities Exam Extremities exam: Negative for: pedal edema, tenderness - Neurological Exam Neurological exam: Alert, Oriented x3 - Psychiatric Exam Psychiatric exam: Normal Affect, Normal Mood - Skin Skin Exam: Dry, Intact, Normal Color, Warm Assessment and Plan - Assessment and Plan (Free Text) Assessment: Assessment: 47 year old female with no significant past medical hx is admitted for recurrent right pneumothorax. Chest tube was placed at bedside in the ED however , pneumothorax had not resolved. chest tube insertion placed 09/08/17 by surgery team. Plan: Recurrent Spontaneous Pneumothorax (R) - Surgery consulted Dr. Sepulveda - s/p chest tube insertion 09/08/17 POD #2 - Cardiothoracic surgery consulted Dr. Baez - will go to OR with Dr. Baez Monday - Chest tube in place on suction 09/08/17 - Pigtail inserted by IR 09/08/17 - pain management with percocet 2 tabs po q4 prn, morphine, lidoderm patch Prophylaxis - SCDs - Lovenox - No indication for GI to be discussed with Hannah Cox, DO PGY1 <Violeta Fraser - Last Filed: 09/09/17 14:12> Objective - Vital Signs/Intake and Output Vital Signs (last 24 hours): Temp Pulse Resp BP Pulse Ox 99.9 F H 96 H 20 127/87 97 09/09/17 07:35 09/09/17 08:00 09/09/17 07:35 09/09/17 07:35 09/09/17 07:35 Intake and Output: 09/09/17 09/09/17 06:59 18:59 Intake Total 820 Output Total 873 Balance -53 - Medications Medications: Current Medications Acetaminophen (Tylenol 325mg Tab) 650 mg PO Q6 PRN PRN Reason: Fever >100.4 F Last Admin: 09/09/17 00:10 Dose: 650 mg Enoxaparin Sodium (Lovenox) 40 mg SC DAILY [facility] 234 [facility]S [facility] Last Admin: 09/09/17 10:02 Dose: 40 mg Lidocaine (Lidoderm) 1 ea TD DAILY [facility] 234 BEDS AT [facility] Last Admin: 09/09/17 10:02 Dose: 1 ea Morphine Sulfate (Morphine) 4 mg IVP Q4H PRN PRN Reason: Pain, severe (8-10) Last Admin: 09/08/17 06:23 Dose: 4 mg Ondansetron HCl (Zofran Inj) 4 mg IVP Q4 PRN PRN Reason: Nausea/Vomiting Oxycodone/Acetaminophen (Percocet 5/325 Mg Tab) 2 tab PO Q4H PRN PRN Reason: Pain, moderate (4-7) Stop: 09/11/17 00:11 Last Admin: 09/08/17 14:55 Dose: 2 tab - Labs Labs: 09/09/17 06:32 09/09/17 06:32 PT 11.2 SECONDS (9.7-12.2) 09/07/17 21:55 INR 1.0 09/07/17 21:55 APTT 29 SECONDS (21-34) 09/07/17 21:55 Attending/Attestation - Attestation I have personally seen and examined this patient.: Yes I have fully participated in the care of the patient.: Yes I have reviewed all pertinent clinical information, including history, physical exam and plan: Yes Notes (Text): Seen and examined this morning,Feeling better today Chest x ray -Pneumothorax improved Patient is going for VATS procedure on Monday I agree with the resident's documentation of the assessment and the plan.
[2017-09-09 06:37] LABS: BASO # 0.1 K/uL (0.0-0.2); BASO % 0.7 % (0.0-2.0); EOS # 0.4 K/uL (0.0-0.7); EOS % 3.3 % (0.0-4.0); HEMOGLOBIN 13.1 g/dL (11.0-16.0); LYMPH # 2.8 K/uL (1.0-4.3); LYMPH % 22.1 % (20.0-40.0); MEAN CELL VOLUME 93.6 fL (81.0-99.0); MEAN CORPUSCULAR HEMOGLOBIN 31.7 pg (27.0-31.0); MEAN CORPUSCULAR HGB CONC 33.9 g/dL (33.0-37.0); MEAN PLATELET VOLUME 8.5 fL (7.2-11.7); MONO # 1.1 K/uL (0.0-0.8); MONO % 8.3 % (0.0-10.0); NEUT # 8.3 K/uL (1.8-7.0); NEUT % 65.6 % (50.0-75.0); RBC 4.12 Mil/uL (3.80-5.20); RED CELL DISTRIBUTION WIDTH 13.2 % (11.5-14.5); WHITE BLOOD COUNT 12.7 K/uL (4.8-10.8)
[2017-09-09 06:53] LABS: ALB/GLOB RATIO 1.2 (1.0-2.1); ALBUMIN 3.9 g/dL (3.5-5.0); ALT/SGPT 18 U/L (9-52); AST/SGOT 34 U/L (14-36); BLOOD UREA NITROGEN 7 mg/dL (7-17); CALCIUM 8.9 mg/dl (8.6-10.4); GFR AFRICAN-AMERICAN > 60; GFR NON-AFRICAN AMERICAN > 60
--- NOTE | 2017-09-09 08:35 | RAD ---
PROCEDURE: CHEST RADIOGRAPH, 1 VIEW HISTORY: pneumothorax s/p IR pigatil COMPARISON: Portable chest 09/08/2017. FINDINGS: LUNGS: An interval right pleural catheter is not identified deployed eliminating the right pneumothorax with right chest tube in position unchanged. No left pneumothorax. Trace right pleural effusion identified. No left pleural effusion. Likely atelectasis in the right base with none on the left. PLEURA: As above. CARDIOVASCULAR: Normal. OSSEOUS STRUCTURES: No significant abnormalities. VISUALIZED UPPER ABDOMEN: Normal. OTHER FINDINGS: None. IMPRESSION: Apparent resolution of prior right pneumothorax status post right pleural drainage catheter deployment with right chest tube unchanged in position. Right basilar atelectasis identified which trace right pleural effusion.
--- NOTE | 2017-09-09 09:00 | CP.PCM.PN ---
<Alpesh Salazar - Last Filed: 09/09/17 08:57> Subjective - Date & Time of Evaluation Date of Evaluation: 09/09/17 Time of Evaluation: 08:57 - Subjective Subjective: General Surgery Progress Note for Dr. Sepulveda This 47F was seen and examined this AM at bedside no acute events to report overnight. Yesterday an additional IR pleural drain was placed. Both surgical and IR CT to suction without air leaks. She reports she feels improved from yesterday. No fevers chills or chest pain. Objective - Vital Signs/Intake and Output Vital Signs (last 24 hours): Temp Pulse Resp BP Pulse Ox 99.9 F H 85 20 127/87 97 09/09/17 08:00 09/09/17 08:00 09/09/17 08:00 09/09/17 08:00 09/09/17 08:00 Intake and Output: 09/09/17 09/09/17 06:59 18:59 Intake Total 820 Output Total 873 Balance -53 - Medications Medications: Current Medications Acetaminophen (Tylenol 325mg Tab) 650 mg PO Q6 PRN PRN Reason: Fever >100.4 F Last Admin: 09/09/17 00:10 Dose: 650 mg Enoxaparin Sodium (Lovenox) 40 mg SC DAILY [facility] Last Admin: 09/08/17 10:45 Dose: 40 mg Lidocaine (Lidoderm) 1 ea TD DAILY [facility] Last Admin: 09/08/17 10:49 Dose: 1 ea Morphine Sulfate (Morphine) 4 mg IVP Q4H PRN PRN Reason: Pain, severe (8-10) Last Admin: 09/08/17 06:23 Dose: 4 mg Ondansetron HCl (Zofran Inj) 4 mg IVP Q4 PRN PRN Reason: Nausea/Vomiting Oxycodone/Acetaminophen (Percocet 5/325 Mg Tab) 2 tab PO Q4H PRN PRN Reason: Pain, moderate (4-7) Stop: 09/11/17 00:11 Last Admin: 09/08/17 14:55 Dose: 2 tab - Labs Labs: 09/09/17 06:32 09/09/17 06:32 PT 11.2 SECONDS (9.7-12.2) 09/07/17 21:55 INR 1.0 09/07/17 21:55 APTT 29 SECONDS (21-34) 09/07/17 21:55 - Constitutional Appears: Non-toxic, No Acute Distress - Head Exam Head Exam: ATRAUMATIC, NORMOCEPHALIC - Eye Exam Eye Exam: EOMI, Normal appearance - ENT Exam ENT Exam: Mucous Membranes Moist - Respiratory Exam Respiratory Exam: NORMAL BREATHING PATTERN Additional comments: [address] to wall suction without air leaks - Cardiovascular Exam Cardiovascular Exam: +S1, +S2 - GI/Abdominal Exam GI & Abdominal Exam: Soft. absent: Guarding, Rigid, Tenderness - Neurological Exam Neurological Exam: Alert, Awake - Psychiatric Exam Psychiatric exam: Normal Affect, Normal Mood - Skin Skin Exam: Dry, Warm Assessment and Plan - Assessment and Plan (Free Text) Assessment: This is a 47F with a recurrent spontaneous pneumothorax POD#2 s/p chest tube placement POD1 IR CT placement Plan: CT surgery consulted : Plan for OR on monday Chest tube to suction Pain control Incentive spirometry D/W Dr. Coco Salazar PGY2 <Nathan Sepulveda B - Last Filed: 09/16/17 19:11> Objective - Vital Signs/Intake and Output Vital Signs (last 24 hours): Temp Pulse Resp BP Pulse Ox 98.1 F 81 20 125/84 97 09/16/17 07:50 09/16/17 07:50 09/16/17 07:50 09/16/17 07:50 09/16/17 07:50 - Labs Labs: 09/16/17 06:20 09/16/17 06:20 PT 11.2 SECONDS (9.7-12.2) 09/07/17 21:55 INR 1.0 09/07/17 21:55 APTT 29 SECONDS (21-34) 09/07/17 21:55 Attending/Attestation - Attestation I have personally seen and examined this patient.: Yes I have fully participated in the care of the patient.: Yes I have reviewed all pertinent clinical information, including history, physical exam and plan: Yes Notes (Text): Pt was seen and examined at bedside Agree with above note and assessment Pt is improving clincally IR for Pigtail placement Incentive spirometry Plan d.w pt in detail
--- NOTE | 2017-09-09 09:38 | CP.PCM.CON ---
Past Patient History - Past Medical History & Family History Past Medical History?: Yes - Past Social History Smoking Status: Former Smoker - CARDIAC Hx Cardiac Disorders: No - PULMONARY Hx Respiratory Disorders: No - NEUROLOGICAL Hx Neurological Disorder: No - HEENT Hx HEENT Problems: No - RENAL Hx Chronic Kidney Disease: No - ENDOCRINE/METABOLIC Hx Endocrine Disorders: No - HEMATOLOGICAL/ONCOLOGICAL Hx Blood Disorders: No - INTEGUMENTARY Hx Dermatological Problems: No - MUSCULOSKELETAL/RHEUMATOLOGICAL Hx Falls: No - GASTROINTESTINAL Hx Gastrointestinal Disorders: No - GENITOURINARY/GYNECOLOGICAL Hx Genitourinary Disorders: No - PSYCHIATRIC Hx Substance Use: No - SURGICAL HISTORY Hx Appendectomy: Yes (2001) - ANESTHESIA Hx Anesthesia: Yes Hx Anesthesia Reactions: No Hx Malignant Hyperthermia: No Meds Allergies/Adverse Reactions: Allergies Allergy/AdvReac Type Severity Reaction Status Date / Time No Known Allergies Allergy Verified 07/21/15 18:47 - Medications Medications: Current Medications Acetaminophen (Tylenol 325mg Tab) 650 mg PO Q6 PRN PRN Reason: Fever >100.4 F Last Admin: 09/09/17 00:10 Dose: 650 mg Enoxaparin Sodium (Lovenox) 40 mg SC DAILY [facility] Last Admin: 09/08/17 10:45 Dose: 40 mg Lidocaine (Lidoderm) 1 ea TD DAILY [facility] Last Admin: 09/08/17 10:49 Dose: 1 ea Morphine Sulfate (Morphine) 4 mg IVP Q4H PRN PRN Reason: Pain, severe (8-10) Last Admin: 09/08/17 06:23 Dose: 4 mg Ondansetron HCl (Zofran Inj) 4 mg IVP Q4 PRN PRN Reason: Nausea/Vomiting Oxycodone/Acetaminophen (Percocet 5/325 Mg Tab) 2 tab PO Q4H PRN PRN Reason: Pain, moderate (4-7) Stop: 09/11/17 00:11 Last Admin: 09/08/17 14:55 Dose: 2 tab Physical Exam - Constitutional Appears: Non-toxic, No Acute Distress - Head Exam Head Exam: ATRAUMATIC, NORMOCEPHALIC - Eye Exam Eye Exam: EOMI, Normal appearance - ENT Exam ENT Exam: Mucous Membranes Moist - Respiratory Exam Respiratory Exam: NORMAL BREATHING PATTERN - Cardiovascular Exam Cardiovascular Exam: +S1, +S2 - GI/Abdominal Exam GI & Abdominal Exam: Soft. absent: Firm, Guarding, Hernia, Rigid - Neurological Exam Neurological exam: Alert, CN II-XII Intact, Oriented x3 - Psychiatric Exam Psychiatric exam: Normal Affect, Normal Mood - Skin Skin Exam: Dry, Intact Results - Vital Signs Recent Vital Signs: Last Vital Signs Temp 99.9 F H 09/09/17 07:35 Pulse 96 H 09/09/17 08:00 Resp 20 09/09/17 07:35 BP 127/87 09/09/17 07:35 Pulse Ox 97 09/09/17 07:35 - Labs Result Diagrams: 09/09/17 06:32 09/09/17 06:32 Labs: Laboratory Results - last 24 hr 09/08/17 09/08/17 09/09/17 11:16 21:43 06:29 WBC RBC Hgb Hct MCV MCH MCHC RDW Plt Count MPV Neut % (Auto) Lymph % (Auto) Powell % (Auto) Eos % (Auto) Baso % (Auto) Neut # (Auto) Lymph # (Auto) Powell # (Auto) Eos # (Auto) Baso # (Auto) Sodium Potassium Chloride Carbon Dioxide Anion Gap BUN Creatinine Est GFR ( Amer) Est GFR (Non-Af Amer) POC Glucose (mg/dL) 90 109 107 Random Glucose Calcium Total Bilirubin AST ALT Alkaline Phosphatase Total Protein Albumin Globulin Albumin/Globulin Ratio 09/09/17 09/09/17 06:32 06:32 WBC 12.7 H RBC 4.12 Hgb 13.1 Hct 38.6 MCV 93.6 MCH 31.7 H MCHC 33.9 RDW 13.2 Plt Count 344 MPV 8.5 Neut % (Auto) 65.6 Lymph % (Auto) 22.1 Powell % (Auto) 8.3 Eos % (Auto) 3.3 Baso % (Auto) 0.7 Neut # (Auto) 8.3 H Lymph # (Auto) 2.8 Powell # (Auto) 1.1 H Eos # (Auto) 0.4 Baso # (Auto) 0.1 Sodium 140 Potassium 3.9 Chloride 102 Carbon Dioxide 26 Anion Gap 16 BUN 7 Creatinine 0.6 L Est GFR ( Amer) > 60 Est GFR (Non-Af Amer) > 60 POC Glucose (mg/dL) Random Glucose 107 H Calcium 8.9 Total Bilirubin 0.6 AST 34 ALT 18 Alkaline Phosphatase 64 Total Protein 7.2 Albumin 3.9 Globulin 3.3 Albumin/Globulin Ratio 1.2 - Imaging and Cardiology CT scan - chest Status: Image reviewed by me, Report reviewed by me Chest x-ray Status: Image reviewed by me, Report reviewed by me Assessment & Plan - Assessment and Plan (Free Text) Assessment: $% F with recurrent pneumothorax S/P CT tube X [address] output Possible OR monday for vats/thoracotomy D/W Dr. Baez
[2017-09-09] MEDS: Enoxaparin 40 mg Syringe SC SCH (10:02)
[2017-09-09] MEDS: Lidocaine 5% Patch TD SCH (10:02)
[2017-09-09] MEDS: Oxycodone/Acetaminophen 5/325 mg Tab PO PRN (14:49)
--- NOTE | 2017-09-10 05:36 | CP.PCM.PN ---
<Hannah Walls - Last Filed: 09/10/17 05:36> Subjective - Date & Time of Evaluation Date of Evaluation: 09/10/17 Time of Evaluation: 05:36 - Subjective Subjective: Progress Note for Dr. Fraser Patient seen and examined at bedside. Patient is feeling better. Pneumothorax is improving. Denies fever, chills, nausea, vomiting, diarrhea, chest pain, shortness of breath. Objective - Vital Signs/Intake and Output Vital Signs (last 24 hours): Temp Pulse Resp BP Pulse Ox 98.4 F 101 H 20 139/91 H 97 09/10/17 04:52 09/10/17 04:52 09/10/17 04:52 09/10/17 04:52 09/10/17 04:52 Intake and Output: 09/09/17 09/10/17 18:59 06:59 Intake Total 320 Output Total 17 5 Balance -17 315 - Medications Medications: Current Medications Acetaminophen (Tylenol 325mg Tab) 650 mg PO Q6 PRN PRN Reason: Fever >100.4 F Last Admin: 09/09/17 21:50 Dose: 650 mg Enoxaparin Sodium (Lovenox) 40 mg SC DAILY [facility] Last Admin: 09/09/17 10:02 Dose: 40 mg Lidocaine (Lidoderm) 1 ea TD DAILY [facility] Last Admin: 09/09/17 10:02 Dose: 1 ea Morphine Sulfate (Morphine) 4 mg IVP Q4H PRN PRN Reason: Pain, severe (8-10) Last Admin: 09/08/17 06:23 Dose: 4 mg Ondansetron HCl (Zofran Inj) 4 mg IVP Q4 PRN PRN Reason: Nausea/Vomiting Oxycodone/Acetaminophen (Percocet 5/325 Mg Tab) 2 tab PO Q4H PRN PRN Reason: Pain, moderate (4-7) Stop: 09/11/17 00:11 Last Admin: 09/09/17 14:49 Dose: 2 tab - Labs Labs: 09/09/17 06:32 09/09/17 06:32 PT 11.2 SECONDS (9.7-12.2) 09/07/17 21:55 INR 1.0 09/07/17 21:55 APTT 29 SECONDS (21-34) 09/07/17 21:55 - Additional Findings Additional findings: - Constitutional Appears: Non-toxic, No Acute Distress - Head Exam Head Exam: ATRAUMATIC - ENT Exam ENT Exam: Mucous Membranes Moist - Respiratory Exam Respiratory Exam: Clear to Auscultation Bilateral. absent: Rales, Rhonchi, Wheezes Additional comments: decreased lung sounds right chest, lower lobe chest tube in place - Cardiovascular Exam Cardiovascular Exam: Tachycardia, REGULAR RHYTHM, +S1, +S2. absent: Gallop, Rubs, Systolic Murmur - GI/Abdominal Exam GI & Abdominal Exam: Normal Bowel Sounds, Soft. absent: Distended, Firm, Guarding, Tenderness - Extremities Exam Extremities exam: Negative for: pedal edema, tenderness - Neurological Exam Neurological exam: Alert, Oriented x3 - Psychiatric Exam Psychiatric exam: Normal Affect, Normal Mood - Skin Skin Exam: Dry, Intact, Normal Color, Warm Assessment and Plan - Assessment and Plan (Free Text) Assessment: 47 year old female with no significant past medical hx is admitted for recurrent right pneumothorax. Chest tube was placed at bedside in the ED however , pneumothorax had not resolved. chest tube insertion placed 09/08/17 by surgery team. Plan: Recurrent Spontaneous Pneumothorax (R) - Surgery consulted Dr. Sepulveda - s/p chest tube insertion 09/08/17 POD #2 - Cardiothoracic surgery consulted Dr. Baez - will go to OR with Dr. Baez Monday - Chest tube in place on suction 09/08/17 - Pigtail inserted by IR 09/08/17 - pain management with percocet 2 tabs po q4 prn, morphine, lidoderm patch Prophylaxis - SCDs - Lovenox - No indication for GI to be discussed with Hannah Cox, DO PGY1 <Violeta Fraser - Last Filed: 09/10/17 17:28> Objective - Vital Signs/Intake and Output Vital Signs (last 24 hours): Temp Pulse Resp BP Pulse Ox 98.1 F 89 20 119/80 97 09/10/17 07:00 09/10/17 07:05 09/10/17 07:00 09/10/17 07:00 09/10/17 07:00 Intake and Output: 09/10/17 09/10/17 06:59 18:59 Intake Total 440 400 Output Total 10 0 Balance 430 400 - Medications Medications: Current Medications Acetaminophen (Tylenol 325mg Tab) 650 mg PO Q6 PRN PRN Reason: Fever >100.4 F Last Admin: 09/09/17 21:50 Dose: 650 mg Enoxaparin Sodium (Lovenox) 40 mg SC DAILY [facility] Last Admin: 09/10/17 09:49 Dose: 40 mg Lidocaine (Lidoderm) 1 ea TD DAILY [facility] Last Admin: 09/10/17 09:53 Dose: 1 ea Morphine Sulfate (Morphine) 4 mg IVP Q4H PRN PRN Reason: Pain, severe (8-10) Last Admin: 09/08/17 06:23 Dose: 4 mg Ondansetron HCl (Zofran Inj) 4 mg IVP Q4 PRN PRN Reason: Nausea/Vomiting Oxycodone/Acetaminophen (Percocet 5/325 Mg Tab) 2 tab PO Q4H PRN PRN Reason: Pain, moderate (4-7) Stop: 09/11/17 00:11 Last Admin: 09/10/17 15:24 Dose: 2 tab - Labs Labs: 09/10/17 08:26 09/10/17 08:26 PT 11.2 SECONDS (9.7-12.2) 09/07/17 21:55 INR 1.0 09/07/17 21:55 APTT 29 SECONDS (21-34) 09/07/17 21:55 Attending/Attestation - Attestation I have personally seen and examined this patient.: Yes I have fully participated in the care of the patient.: Yes I have reviewed all pertinent clinical information, including history, physical exam and plan: Yes Notes (Text): Patient was seen and examined,no complain,lying comfortable Recurrent pneumothorax Chest x ray -Pneumothorax improved Patient is going for VATS procedure on Monday I agree with the resident's documentation of the assessment and the plan.
[2017-09-10] MEDS: Oxycodone/Acetaminophen 5/325 mg Tab PO PRN ×2 (06:01→15:24)
[2017-09-10 08:33] LABS: BASO # 0.1 K/uL (0.0-0.2); BASO % 0.8 % (0.0-2.0); EOS # 0.3 K/uL (0.0-0.7); EOS % 2.5 % (0.0-4.0); HEMOGLOBIN 12.9 g/dL (11.0-16.0); LYMPH # 2.6 K/uL (1.0-4.3); LYMPH % 21.6 % (20.0-40.0); MEAN CELL VOLUME 93.3 fL (81.0-99.0); MEAN CORPUSCULAR HEMOGLOBIN 32.8 pg (27.0-31.0); MEAN CORPUSCULAR HGB CONC 35.2 g/dL (33.0-37.0); MEAN PLATELET VOLUME 8.8 fL (7.2-11.7); MONO # 0.9 K/uL (0.0-0.8); MONO % 7.6 % (0.0-10.0); NEUT # 8.1 K/uL (1.8-7.0); NEUT % 67.5 % (50.0-75.0); RBC 3.92 Mil/uL (3.80-5.20)
--- NOTE | 2017-09-10 08:43 | CP.PCM.PN ---
Subjective - Date & Time of Evaluation Date of Evaluation: 09/10/17 Time of Evaluation: 08:41 - Subjective Subjective: CT surgery progress note for Dr. Blank King, PGY-1 Pt S & E at bedside at 0720 Pt reports chest wall pain well controlled with pain medication - only required it once overnight as per nursing. CT had 3cc output overnight per nursing. Denies N & V, F & C, SOB, CP, other complaints. Objective - Vital Signs/Intake and Output Vital Signs (last 24 hours): Temp Pulse Resp BP Pulse Ox 98.1 F 79 20 119/80 97 09/10/17 07:00 09/10/17 07:00 09/10/17 07:00 09/10/17 07:00 09/10/17 07:00 Intake and Output: 09/10/17 09/10/17 06:59 18:59 Intake Total 440 Output Total 10 Balance 430 - Medications Medications: Current Medications Acetaminophen (Tylenol 325mg Tab) 650 mg PO Q6 PRN PRN Reason: Fever >100.4 F Last Admin: 09/09/17 21:50 Dose: 650 mg Enoxaparin Sodium (Lovenox) 40 mg SC DAILY [facility] Last Admin: 09/09/17 10:02 Dose: 40 mg Lidocaine (Lidoderm) 1 ea TD DAILY [facility] Last Admin: 09/09/17 10:02 Dose: 1 ea Morphine Sulfate (Morphine) 4 mg IVP Q4H PRN PRN Reason: Pain, severe (8-10) Last Admin: 09/08/17 06:23 Dose: 4 mg Ondansetron HCl (Zofran Inj) 4 mg IVP Q4 PRN PRN Reason: Nausea/Vomiting Oxycodone/Acetaminophen (Percocet 5/325 Mg Tab) 2 tab PO Q4H PRN PRN Reason: Pain, moderate (4-7) Stop: 09/11/17 00:11 Last Admin: 09/10/17 06:01 Dose: 2 tab - Labs Labs: 09/10/17 08:26 09/09/17 06:32 PT 11.2 SECONDS (9.7-12.2) 09/07/17 21:55 INR 1.0 09/07/17 21:55 APTT 29 SECONDS (21-34) 09/07/17 21:55 - Constitutional Appears: Non-toxic, No Acute Distress - Head Exam Head Exam: ATRAUMATIC, NORMAL INSPECTION, NORMOCEPHALIC - Eye Exam Eye Exam: EOMI, Normal appearance - ENT Exam ENT Exam: Mucous Membranes Moist, Normal Exam - Neck Exam Neck Exam: Full ROM, Normal Inspection - Respiratory Exam Respiratory Exam: Chest Wall Tenderness (Right lateral chest wall with pigtail and Chest tube in place- dressings for both are clean/dry/intact), Decreased Breath Sounds (Over superior right lung field), NORMAL BREATHING PATTERN. absent: Accessory Muscle Use, Rales, Rhonchi, Wheezes, Respiratory Distress - Cardiovascular Exam Cardiovascular Exam: REGULAR RHYTHM, +S1, +S2 - GI/Abdominal Exam GI & Abdominal Exam: Soft. absent: Distended, Firm, Guarding, Rigid, Tenderness - Extremities Exam Extremities Exam: Normal Inspection - Neurological Exam Neurological Exam: Alert, Awake, CN II-XII Intact, Oriented x3 - Psychiatric Exam Psychiatric exam: Normal Affect, Normal Mood - Skin Skin Exam: Dry, Intact, Normal Color, Warm Assessment and Plan - Assessment and Plan (Free Text) Assessment: 47F w/recurrent Right pneumothorax s/p Right chest tube and Right pigtail placement Plan: CT to wall suction Monitor output Tentative Plan for VATS vs thoracotomy Monday Pain control PRN Encourage IS use Daily CXR Will KWAME attending Christine, PGY-1
--- NOTE | 2017-09-10 08:47 | CP.PCM.PN ---
Subjective - Date & Time of Evaluation Date of Evaluation: 09/10/17 Time of Evaluation: 08:44 - Subjective Subjective: General surgery progress note for Dr. Abida King, PGY-1 Pt S & E at bedside at 0720 Pt reports chest wall pain well controlled with pain medication - only required it once overnight as per nursing. CT had 3cc output overnight per nursing. Denies N & V, F & C, SOB, CP, other complaints. Objective - Vital Signs/Intake and Output Vital Signs (last 24 hours): Temp Pulse Resp BP Pulse Ox 98.1 F 79 20 119/80 97 09/10/17 07:00 09/10/17 07:00 09/10/17 07:00 09/10/17 07:00 09/10/17 07:00 Intake and Output: 09/10/17 09/10/17 06:59 18:59 Intake Total 440 Output Total 10 Balance 430 - Medications Medications: Current Medications Acetaminophen (Tylenol 325mg Tab) 650 mg PO Q6 PRN PRN Reason: Fever >100.4 F Last Admin: 09/09/17 21:50 Dose: 650 mg Enoxaparin Sodium (Lovenox) 40 mg SC DAILY [facility] Last Admin: 09/09/17 10:02 Dose: 40 mg Lidocaine (Lidoderm) 1 ea TD DAILY [facility] Last Admin: 09/09/17 10:02 Dose: 1 ea Morphine Sulfate (Morphine) 4 mg IVP Q4H PRN PRN Reason: Pain, severe (8-10) Last Admin: 09/08/17 06:23 Dose: 4 mg Ondansetron HCl (Zofran Inj) 4 mg IVP Q4 PRN PRN Reason: Nausea/Vomiting Oxycodone/Acetaminophen (Percocet 5/325 Mg Tab) 2 tab PO Q4H PRN PRN Reason: Pain, moderate (4-7) Stop: 09/11/17 00:11 Last Admin: 09/10/17 06:01 Dose: 2 tab - Labs Labs: 09/10/17 08:26 09/09/17 06:32 PT 11.2 SECONDS (9.7-12.2) 09/07/17 21:55 INR 1.0 09/07/17 21:55 APTT 29 SECONDS (21-34) 05/10/18 21:55 - Constitutional Appears: Non-toxic, No Acute Distress - Head Exam Head Exam: ATRAUMATIC, NORMAL INSPECTION, NORMOCEPHALIC - Eye Exam Eye Exam: EOMI, Normal appearance - ENT Exam ENT Exam: Mucous Membranes Moist, Normal Exam - Neck Exam Neck Exam: Full ROM, Normal Inspection - Respiratory Exam Respiratory Exam: Chest Wall Tenderness (right lateral chest wall with pigtail and CT inserted, dressings for both are clean/dry/intact, slightly tender to ), Decreased Breath Sounds (over right superior lung moy), NORMAL BREATHING PATTERN. absent: Accessory Muscle Use, Rhonchi, Wheezes, Respiratory Distress, Stridor - Cardiovascular Exam Cardiovascular Exam: REGULAR RHYTHM, +S1, +S2 - GI/Abdominal Exam GI & Abdominal Exam: Soft, Normal Bowel Sounds. absent: Distended, Firm, Guarding, Rigid, Tenderness - Neurological Exam Neurological Exam: Alert, Awake, CN II-XII Intact, Oriented x3 - Psychiatric Exam Psychiatric exam: Normal Affect, Normal Mood - Skin Skin Exam: Dry, Intact, Normal Color, Warm Assessment and Plan - Assessment and Plan (Free Text) Assessment: 47F w/recurrent Right pneumothorax s/p Right chest tube and Right pigtail placement Plan: CT to wall suction Serial CXR Plan for VATS vs thoracotomy Monday with CT surgery Pain control PRN Encourage IS use Daily CXR No further general surgical intervention at this time Further mgmt as per CT surgery and primary teams KWAME attending Christine, PGY-1
[2017-09-10 08:54] LABS: ALB/GLOB RATIO 1.1 (1.0-2.1); ALBUMIN 3.9 g/dL (3.5-5.0); ALT/SGPT 16 U/L (9-52); AST/SGOT 24 U/L (14-36); BLOOD UREA NITROGEN 9 mg/dL (7-17); CALCIUM 9.1 mg/dl (8.6-10.4); GFR AFRICAN-AMERICAN > 60; GFR NON-AFRICAN AMERICAN > 60
[2017-09-10] MEDS: Enoxaparin 40 mg Syringe SC SCH (09:49)
[2017-09-10] MEDS: Lidocaine 5% Patch TD SCH (09:53)
--- NOTE | 2017-09-10 15:46 | RAD ---
HISTORY: evaluation of CT and pneumothorax COMPARISON: Portable chest 09/09/2017. FINDINGS: LUNGS: Diminishing right basilar atelectasis with none on the left. No definite alveolitis bilaterally. PLEURA: No significant pleural effusion identified, no pneumothorax apparent. Right-sided chest tube and pleural catheter unchanged in position. CARDIOVASCULAR: Normal. OSSEOUS STRUCTURES: No significant abnormalities. VISUALIZED UPPER ABDOMEN: Normal. OTHER FINDINGS: None. IMPRESSION: Limited residual atelectasis right base. No pneumothorax bilaterally. Right chest tube and pleural catheter unchanged in position.
[2017-09-10] MEDS: Morphine 4 MG/ML VIAL IVP PRN ×2 (16:28→21:47)
--- NOTE | 2017-09-11 07:38 | CP.PCM.PN ---
<Jaxson Gooden - Last Filed: 09/11/17 07:35> Subjective - Date & Time of Evaluation Date of Evaluation: 09/11/17 Time of Evaluation: 06:45 - Subjective Subjective: Surgery- Dr. Sepulveda patient seen and examined at bedside this AM. having some pain around incision sites. Posterior pigtail and chest tube in place, no air leak present. AM CXR pending. denies, nausea, vomiting, shortness of breath, numbness/tingling in extremities Objective - Vital Signs/Intake and Output Vital Signs (last 24 hours): Temp Pulse Resp BP Pulse Ox 98.2 F 77 20 122/80 97 09/10/17 23:10 09/11/17 03:45 09/10/17 23:10 09/10/17 23:10 09/10/17 23:10 Intake and Output: 09/11/17 09/11/17 06:59 18:59 Intake Total 240 Output Total 11 Balance 229 - Medications Medications: Current Medications Acetaminophen (Tylenol 325mg Tab) 650 mg PO Q6 PRN PRN Reason: Fever >100.4 F Last Admin: 09/09/17 21:50 Dose: 650 mg Enoxaparin Sodium (Lovenox) 40 mg SC DAILY [facility] Last Admin: 09/10/17 09:49 Dose: 40 mg Ibuprofen (Motrin Tab) 600 mg PO TID PRN PRN Reason: Pain, moderate (4-7) Lidocaine (Lidoderm) 1 ea TD DAILY [facility] Last Admin: 09/10/17 09:53 Dose: 1 ea Morphine Sulfate (Morphine) 1 mg IVP Q4H PRN PRN Reason: Pain, severe (8-10) Ondansetron HCl (Zofran Inj) 4 mg IVP Q4 PRN PRN Reason: Nausea/Vomiting - Labs Labs: 09/10/17 08:26 09/10/17 08:26 PT 11.2 SECONDS (9.7-12.2) 09/07/17 21:55 INR 1.0 09/07/17 21:55 APTT 29 SECONDS (21-34) 09/07/17 21:55 - Constitutional Appears: Non-toxic, No Acute Distress - Head Exam Head Exam: ATRAUMATIC - Eye Exam Eye Exam: EOMI - ENT Exam ENT Exam: Mucous Membranes Moist - Respiratory Exam Respiratory Exam: absent: Accessory Muscle Use, Respiratory Distress Additional comments: Pigtail and chest tube in place, no air leak detected - Cardiovascular Exam Cardiovascular Exam: +S1, +S2. absent: Bradycardia, Tachycardia - GI/Abdominal Exam GI & Abdominal Exam: Soft. absent: Distended, Firm, Guarding, Rigid, Tenderness - Neurological Exam Neurological Exam: Alert, Awake, Oriented x3 - Psychiatric Exam Psychiatric exam: Normal Affect - Skin Skin Exam: Intact, Warm Assessment and Plan - Assessment and Plan (Free Text) Assessment: 47F s/p Right chest tube and pigtail placement POD#3 Plan: - AM CXR - if lung inflated, will place CT on gravity - pain control PRN - Thoracic surgery recs- possible Thoracotomy tomorrow - discussed w/ [facility] <Nathan Sepulveda B - Last Filed: 09/16/17 19:13> Objective - Vital Signs/Intake and Output Vital Signs (last 24 hours): Temp Pulse Resp BP Pulse Ox 98.1 F 81 20 125/84 97 09/16/17 07:50 09/16/17 07:50 09/16/17 07:50 09/16/17 07:50 09/16/17 07:50 - Labs Labs: 09/16/17 06:20 09/16/17 06:20 PT 11.2 SECONDS (9.7-12.2) 09/07/17 21:55 INR 1.0 09/07/17 21:55 APTT 29 SECONDS (21-34) 09/07/17 21:55 Attending/Attestation - Attestation I have personally seen and examined this patient.: Yes I have fully participated in the care of the patient.: Yes I have reviewed all pertinent clinical information, including history, physical exam and plan: Yes Notes (Text): Pt was seen and examined at bedside Agree with above note and assessment S/P Right pigtail placement OR for VATS as per No General surgical intervention required Plan d.w pt in detail Risk and benefit explained in detail.
[2017-09-11 07:44] LABS: BASO % 0.3 % (0.0-2.0); EOS # 0.5 K/uL (0.0-0.7); EOS % 4.3 % (0.0-4.0); LYMPH # 2.7 K/uL (1.0-4.3); LYMPH % 24.9 % (20.0-40.0); MEAN CELL VOLUME 92.2 fL (81.0-99.0); MEAN CORPUSCULAR HEMOGLOBIN 32.7 pg (27.0-31.0); MEAN CORPUSCULAR HGB CONC 35.4 g/dL (33.0-37.0); MEAN PLATELET VOLUME 8.1 fL (7.2-11.7); MONO # 0.9 K/uL (0.0-0.8); MONO % 8.3 % (0.0-10.0); NEUT # 6.8 K/uL (1.8-7.0); NEUT % 62.2 % (50.0-75.0); NRBC % 0.1 % (0.0-2.0); WHITE BLOOD COUNT 10.9 K/uL (4.8-10.8)
--- NOTE | 2017-09-11 07:45 | CP.PCM.PN ---
Subjective - Date & Time of Evaluation Date of Evaluation: 09/11/17 Time of Evaluation: 06:45 - Subjective Subjective: Thoracic Surgery- Dr. Baez patient seen and examined at bedside this AM. having some pain around incision sites. Posterior pigtail and chest tube in place, no air leak present. AM CXR pending. denies, nausea, vomiting, shortness of breath, numbness/tingling in extremities Objective - Vital Signs/Intake and Output Vital Signs (last 24 hours): Temp Pulse Resp BP Pulse Ox 98.2 F 77 20 122/80 97 09/10/17 23:10 09/11/17 03:45 09/10/17 23:10 09/10/17 23:10 09/10/17 23:10 Intake and Output: 09/11/17 09/11/17 06:59 18:59 Intake Total 240 Output Total 11 Balance 229 - Medications Medications: Current Medications Acetaminophen (Tylenol 325mg Tab) 650 mg PO Q6 PRN PRN Reason: Fever >100.4 F Last Admin: 09/09/17 21:50 Dose: 650 mg Enoxaparin Sodium (Lovenox) 40 mg SC DAILY [facility] Last Admin: 09/10/17 09:49 Dose: 40 mg Ibuprofen (Motrin Tab) 600 mg PO TID PRN PRN Reason: Pain, moderate (4-7) Lidocaine (Lidoderm) 1 ea TD DAILY [facility] Last Admin: 09/10/17 09:53 Dose: 1 ea Morphine Sulfate (Morphine) 1 mg IVP Q4H PRN PRN Reason: Pain, severe (8-10) Ondansetron HCl (Zofran Inj) 4 mg IVP Q4 PRN PRN Reason: Nausea/Vomiting - Labs Labs: 09/10/17 08:26 09/10/17 08:26 PT 11.2 SECONDS (9.7-12.2) 09/07/17 21:55 INR 1.0 09/07/17 21:55 APTT 29 SECONDS (21-34) 09/07/17 21:55 - Constitutional Appears: Non-toxic, No Acute Distress - Head Exam Head Exam: ATRAUMATIC - Eye Exam Eye Exam: EOMI. absent: Scleral icterus - ENT Exam ENT Exam: Mucous Membranes Moist - Respiratory Exam Respiratory Exam: NORMAL BREATHING PATTERN. absent: Accessory Muscle Use, Respiratory Distress Additional comments: Right pigtail and Chest tube in place no air leaks detected - Cardiovascular Exam Cardiovascular Exam: +S1, +S2. absent: Bradycardia, Tachycardia - GI/Abdominal Exam GI & Abdominal Exam: Soft. absent: Firm, Guarding, Rigid, Tenderness - Extremities Exam Extremities Exam: absent: Calf Tenderness - Neurological Exam Neurological Exam: Alert, Awake, Oriented x3 - Psychiatric Exam Psychiatric exam: Normal Affect - Skin Skin Exam: Intact, Warm Assessment and Plan - Assessment and Plan (Free Text) Assessment: 47F w/ recurrent Right pneumothorax s/p Right chest tube and pigtail placement POD#3 Plan: - AM CXR - if lung inflated, will place CT on gravity - pain control PRN - plan for thoracotomy tomorrow - further recs per Dr. Baez surgical attending PGY1
[2017-09-11 08:14] LABS: ALB/GLOB RATIO 1.1 (1.0-2.1); ALBUMIN 3.7 g/dL (3.5-5.0); ALT/SGPT 13 U/L (9-52); AST/SGOT 23 U/L (14-36); BLOOD UREA NITROGEN 11 mg/dL (7-17); CALCIUM 9.2 mg/dl (8.6-10.4); GFR AFRICAN-AMERICAN > 60; GFR NON-AFRICAN AMERICAN > 60
[2017-09-11] MEDS: Lidocaine 5% Patch TD SCH (10:22)
[2017-09-11] MEDS: Enoxaparin 40 mg Syringe SC SCH (10:23)
--- NOTE | 2017-09-11 10:26 | RAD ---
HISTORY: evaluation of CT and pneumothorax COMPARISON: Chest radiograph dated 09/10/2017. TECHNIQUE: Chest PA and lateral FINDINGS: LUNGS: No active pulmonary disease. PLEURA: Small right basilar pneumothorax. CARDIOVASCULAR: Normal. OSSEOUS STRUCTURES: No significant abnormalities. VISUALIZED UPPER ABDOMEN: Normal. OTHER FINDINGS: Right-sided large-bore and pigtail chest tubes, unchanged. IMPRESSION: Right-sided chest tubes in place. Small right basilar pneumothorax.
--- NOTE | 2017-09-11 10:27 | CP.PCM.PN ---
<Dyan Rodriguez - Last Filed: 09/11/17 10:24> Subjective - Date & Time of Evaluation Date of Evaluation: 09/11/17 Time of Evaluation: 09:00 - Subjective Subjective: Medicine Note for Hospitalist Service- Dr. Negrete Patient was and seen and examined at bedside. Patient reports she has pain at the chest tube insertion site, but otherwise is breathing well. Denied fever, chills, headache, chest pain, abdominal pain, n/v/d/c/, or urinary symptoms. Objective - Vital Signs/Intake and Output Vital Signs (last 24 hours): Temp Pulse Resp BP Pulse Ox 99.1 F 76 18 126/83 97 09/11/17 07:55 09/11/17 07:55 09/11/17 07:55 09/11/17 07:55 09/11/17 07:55 Intake and Output: 09/11/17 09/11/17 06:59 18:59 Intake Total 240 Output Total 11 Balance 229 - Medications Medications: Current Medications Acetaminophen (Tylenol 325mg Tab) 650 mg PO Q6 PRN PRN Reason: Fever >100.4 F Last Admin: 09/09/17 21:50 Dose: 650 mg Enoxaparin Sodium (Lovenox) 40 mg SC DAILY [facility] Last Admin: 09/11/17 10:23 Dose: 40 mg Ibuprofen (Motrin Tab) 600 mg PO TID PRN PRN Reason: Pain, moderate (4-7) Lidocaine (Lidoderm) 1 ea TD DAILY [facility] Last Admin: 09/11/17 10:22 Dose: 1 ea Morphine Sulfate (Morphine) 1 mg IVP Q4H PRN PRN Reason: Pain, severe (8-10) Ondansetron HCl (Zofran Inj) 4 mg IVP Q4 PRN PRN Reason: Nausea/Vomiting - Labs Labs: 09/11/17 07:23 09/11/17 07:23 PT 11.2 SECONDS (9.7-12.2) 09/07/17 21:55 INR 1.0 09/07/17 21:55 APTT 29 SECONDS (21-34) 09/07/17 21:55 - Additional Findings Additional findings: - Constitutional Appears: Non-toxic, No Acute Distress - Head Exam Head Exam: ATRAUMATIC - ENT Exam ENT Exam: Mucous Membranes Moist - Respiratory Exam Respiratory Exam: Clear to Auscultation Bilateral. absent: Rales, Rhonchi, Wheezes Additional comments: chest tube and pigtail in place (R), dressings c/d/i - Cardiovascular Exam Cardiovascular Exam: Tachycardia, REGULAR RHYTHM, +S1, +S2. absent: Gallop, Rubs, Systolic Murmur - GI/Abdominal Exam GI & Abdominal Exam: Normal Bowel Sounds, Soft. absent: Distended, Firm, Guarding, Tenderness - Extremities Exam Extremities exam: Negative for: pedal edema, tenderness - Neurological Exam Neurological exam: Alert, Oriented x3 - Psychiatric Exam Psychiatric exam: Normal Affect, Normal Mood - Skin Skin Exam: Dry, Intact, Normal Color, Warm Assessment and Plan - Assessment and Plan (Free Text) Assessment: 47 year old female with no significant past medical hx is admitted for recurrent right pneumothorax. Chest tube was placed at bedside in the ED but did not achieve complete resolution of the pneumo. Pigtail was inserted . Pneumo is now resolving. Plan: Recurrent Spontaneous Pneumothorax (R) - Surgery consulted Dr. Sepulveda - s/p chest tube insertion 09/08/17 - Cardiothoracic surgery consulted Dr. Baez - original plan was for VATS vs thoractomy 09/12/17- however pneumo has completely resolved - Chest tube will be clamped today, possible removal 09/12/17 - pig tail to be removed 09/13 or 09/14 - Will speak to CT to determine the official plan - Chest tube in place on suction 09/08/17 - Pigtail inserted by IR 09/08/17 - pain management with percocet 2 tabs po q4 prn, morphine, lidoderm patch Prophylaxis - SCDs - Lovenox - No indication for GI DW Dyan Saldana DO, PGY-1 <Ronald Negrete - Last Filed: 09/11/17 11:44> Objective - Vital Signs/Intake and Output Vital Signs (last 24 hours): Temp Pulse Resp BP Pulse Ox 99.1 F 76 18 126/83 97 09/11/17 07:55 09/11/17 07:55 09/11/17 07:55 09/11/17 07:55 09/11/17 07:55 Intake and Output: 09/11/17 09/11/17 06:59 18:59 Intake Total 240 Output Total 11 Balance 229 - Medications Medications: Current Medications Acetaminophen (Tylenol 325mg Tab) 650 mg PO Q6 PRN PRN Reason: Fever >100.4 F Last Admin: 09/09/17 21:50 Dose: 650 mg Enoxaparin Sodium (Lovenox) 40 mg SC DAILY [facility] Last Admin: 09/11/17 10:23 Dose: 40 mg Ibuprofen (Motrin Tab) 600 mg PO TID PRN PRN Reason: Pain, moderate (4-7) Lidocaine (Lidoderm) 1 ea TD DAILY [facility] Last Admin: 09/11/17 10:22 Dose: 1 ea Morphine Sulfate (Morphine) 1 mg IVP Q4H PRN PRN Reason: Pain, severe (8-10) Ondansetron HCl (Zofran Inj) 4 mg IVP Q4 PRN PRN Reason: Nausea/Vomiting - Labs Labs: 09/11/17 07:23 09/11/17 07:23 PT 11.2 SECONDS (9.7-12.2) 09/07/17 21:55 INR 1.0 09/07/17 21:55 APTT 29 SECONDS (21-34) 09/07/17 21:55 Attending/Attestation - Attestation I have personally seen and examined this patient.: Yes I have fully participated in the care of the patient.: Yes I have reviewed all pertinent clinical information, including history, physical exam and plan: Yes Notes (Text): 09/11/17 11:44 Medical attending: Patient was seen and examined by me, agree with the above note by medical equipment sales. This is my first time meeting patient so had to review the previous notes as well as discuss with the patient and staff. The patient has a chest tube as well as a pigtail catheter. It is possible that the chest tube may be clamped soon. Pending on how she does she may or may not have further CT surgery intervention this depends on how well she does. The chest x-ray from this morning looked much improved compared to when she first came in When we saw her today she was reporting some pain on the right chest near by the tube site. Ronald Negrete
--- NOTE | 2017-09-11 12:37 | CT ---
PROCEDURE: CT-GUIDED CHEST TUBE INSERTION CLINICAL HISTORY: 47-year-old female with recurrent pneumothorax status post right large bore chest tube insertion placed by surgery with suboptimal decompression is referred to Interventional Radiology for percutaneous chest tube placement. COMPARISON: Chest radiograph dated 09/07/2017 PROCEDURE: 1. Focused CT of the right hemithorax. 2. CT-guided pigtail chest tube placement. PRE-PROCEDURE FINDINGS: 1. Large right pneumothorax versus multiple large bullae. Indwelling large-bore chest tube traversing multiple septae with tip possibly can intraparenchymal location. POST-PROCEDURE FINDINGS: 1. No evidence of post-procedural complication. INTERVENTIONAL RADIOLOGIST: Kwadwo Palacios M.D. (the attending was present for the entire procedure) ANESTHESIA: None. MEDICATIONS: Lidocaine 1% for local subcutaneous analgesia. COMPLICATIONS: None. PROCEDURE DESCRIPTION AND FINDINGS: The risks, benefits, alternatives and possible complications of the procedure were fully discussed; all questions were answered and informed consent was obtained. The patient was brought into the interventional suite and a pre-procedure 'time-out' was performed. The patient was placed on the CT table in the left lateral decubitus position. The right lateral chest was prepped and draped in the usual sterile fashion. Maximum sterile barrier precautions were maintained throughout the entire procedure. Preliminary focused CT images of the right hemithorax again demonstrate large right pneumothorax versus multiple large bullae. Indwelling large-bore chest tube is present which traverses multiple septae with tip possibly intraparenchymal in location. Following subcutaneous infiltration of lidocaine 1% for local analgesia, under CT-guidance, an 18-gauge trocar needle was advanced into the right pleural space is. An 0.035 guidewire was looped within the collection and optimal position was confirmed with CT imaging. After serial dilatation, an 8.5 [place]ian pigtail catheter was advanced over the guidewire into the right pleural space. Post-procedure imaging demonstrated successful placement of the pigtail catheter within the right pleural space. The catheter was secured to the skin utilizing a sterile adhesive bandage and connected to a Pleur-Evac drainage system. The patient tolerated the procedure well without immediate post-procedure complications and was transferred back to the floor in stable condition. IMPRESSION: Preprocedure CT of the right hemithorax demonstrated large right pneumothorax versus multiple large bullae. Interval large-bore chest tube present which traversed multiple septae with tip possibly in intraparenchymal in location. Successful CT-guided placement of 8.5 [place]ian pigtail catheter within the right pleural space.
[2017-09-12 06:25] LABS: BASO # 0.1 K/uL (0.0-0.2); BASO % 0.4 % (0.0-2.0); EOS # 0.7 K/uL (0.0-0.7); EOS % 4.6 % (0.0-4.0); HEMOGLOBIN 13.7 g/dL (11.0-16.0); LYMPH # 3.8 K/uL (1.0-4.3); LYMPH % 26.3 % (20.0-40.0); MEAN CELL VOLUME 92.9 fL (81.0-99.0); MEAN CORPUSCULAR HEMOGLOBIN 32.1 pg (27.0-31.0); MEAN CORPUSCULAR HGB CONC 34.6 g/dL (33.0-37.0); MEAN PLATELET VOLUME 8.1 fL (7.2-11.7); NEUT # 8.9 K/uL (1.8-7.0); NEUT % 61.7 % (50.0-75.0); RBC 4.27 Mil/uL (3.80-5.20); RED CELL DISTRIBUTION WIDTH 12.8 % (11.5-14.5); WHITE BLOOD COUNT 14.5 K/uL (4.8-10.8)
[2017-09-12 07:14] LABS: ALBUMIN 4.1 g/dL (3.5-5.0); BLOOD UREA NITROGEN 12 mg/dL (7-17); CALCIUM 9.4 mg/dl (8.6-10.4); GFR AFRICAN-AMERICAN > 60; GFR NON-AFRICAN AMERICAN > 60
[2017-09-12 07:15] LABS: ALB/GLOB RATIO 1.1 (1.0-2.1); ALT/SGPT 13 U/L (9-52); AST/SGOT 27 U/L (14-36)
[2017-09-12] MEDS ORDERED: Midazolam 2 MG/2 ML VIAL ONE (07:29)
[2017-09-12] MEDS ORDERED: Propofol 10 mg/ml Inj (20 ML) ONE ×2 (07:29→09:06)
[2017-09-12] MEDS ORDERED: Lactated Ringer's 1,000 ML IV ONE ×2 (07:30)
[2017-09-12] MEDS ORDERED: ceFAZolin 1 gm FROZEN Premix 1 GM/50 ML ML IVPB ONE (07:35)
--- NOTE | 2017-09-12 09:22 | PCM.SURG1 ---
Surgeon's Initial Post Op Note - Surgeon's Notes Surgeon: Dr. Baez Piercing Machine Operator: Dr. Salazar PGY2 Type of Anesthesia: General Endo Pre-Operative Diagnosis: Recurrent pneumothorax Operative Findings: See operative dictation Post-Operative Diagnosis: Recurrent Pneumothorax Operation Performed: Right sided exploratory thoracotomy Specimen/Specimens Removed: incidental foreign body Estimated Blood Loss: EBL {In ML}: 50 Blood Products Given: N/A Drains Used: Chest Tubes Post-Op Condition: Good Date of Surgery/Procedure: 09/12/17 Time of Surgery/Procedure: 09:22
[2017-09-12] MEDS: HYDROmorphone 0.5 mg/0.5 ml ISec IVP PRN ×5 (09:35→21:54)
[2017-09-12] MEDS: Lidocaine 5% Patch TD SCH ×2 (10:42→11:25)
--- NOTE | 2017-09-12 11:59 | CP.PCM.PN ---
<Dyan Rodriguez - Last Filed: 09/12/17 11:57> Subjective - Date & Time of Evaluation Date of Evaluation: 09/12/17 Time of Evaluation: 07:00 - Subjective Subjective: Medicine Note for Hospitalist Service- Dr. Negrete Patient was and seen and examined at bedside. Patient reports she has pain at the chest tube insertion site, but otherwise is breathing well. Denied fever, chills, headache, chest pain, abdominal pain, n/v/d/c/, or urinary symptoms. Patient picked up for OR - with Dr. Baez Objective - Vital Signs/Intake and Output Vital Signs (last 24 hours): Temp Pulse Resp BP Pulse Ox 98.8 F 94 H 20 127/88 96 09/12/17 11:05 09/12/17 11:05 09/12/17 11:05 09/12/17 11:05 09/12/17 11:05 Intake and Output: 09/12/17 09/12/17 06:59 18:59 Intake Total 240 Output Total 0 130 Balance 240 -130 - Medications Medications: Current Medications Acetaminophen (Tylenol 325mg Tab) 650 mg PO Q6 PRN PRN Reason: Fever >100.4 F Last Admin: 09/09/17 21:50 Dose: 650 mg Enoxaparin Sodium (Lovenox) 40 mg SC DAILY [facility] Last Admin: 09/11/17 10:23 Dose: 40 mg Hydromorphone HCl (Dilaudid) 1 mg IVP Q4H PRN PRN Reason: Pain, severe (8-10) Last Admin: 09/12/17 11:25 Dose: 1 mg Ibuprofen (Motrin Tab) 600 mg PO TID PRN PRN Reason: Pain, moderate (4-7) Lidocaine (Lidoderm) 1 ea TD DAILY [facility] Last Admin: 09/12/17 11:25 Dose: 1 ea Morphine Sulfate (Morphine) 1 mg IVP Q4H PRN PRN Reason: Pain, severe (8-10) Ondansetron HCl (Zofran Inj) 4 mg IVP Q4 PRN PRN Reason: Nausea/Vomiting - Labs Labs: 09/12/17 06:20 09/12/17 06:20 PT 11.2 SECONDS (9.7-12.2) 09/07/17 21:55 INR 1.0 09/07/17 21:55 APTT 29 SECONDS (21-34) 09/07/17 21:55 - Additional Findings Additional findings: - Constitutional Appears: Non-toxic, No Acute Distress - Head Exam Head Exam: ATRAUMATIC - ENT Exam ENT Exam: Mucous Membranes Moist - Respiratory Exam Respiratory Exam: Clear to Auscultation Bilateral. absent: Rales, Rhonchi, Wheezes Additional comments: chest tube and pigtail in place (R), dressings c/d/i - Cardiovascular Exam Cardiovascular Exam: Tachycardia, REGULAR RHYTHM, +S1, +S2. absent: Gallop, Rubs, Systolic Murmur - GI/Abdominal Exam GI & Abdominal Exam: Normal Bowel Sounds, Soft. absent: Distended, Firm, Guarding, Tenderness - Extremities Exam Extremities exam: Negative for: pedal edema, tenderness - Neurological Exam Neurological exam: Alert, Oriented x3 - Psychiatric Exam Psychiatric exam: Normal Affect, Normal Mood - Skin Skin Exam: Dry, Intact, Normal Color, Warm Assessment and Plan - Assessment and Plan (Free Text) Assessment: 47 year old female with no significant past medical hx is admitted for recurrent right pneumothorax. Chest tube was placed at bedside in the ED but did not achieve complete resolution of the pneumo. Pigtail was inserted . Pneumo is now resolving. S/P exploratory thoracotomy Plan: Recurrent Spontaneous Pneumothorax (R) - Surgery consulted Dr. Sepulveda - s/p chest tube insertion 09/08/17 - Cardiothoracic surgery consulted Dr. Baez - original plan was for VATS vs thoractomy 09/12/17- however pneumo has completely resolved - Chest tube will be clamped today, possible removal 09/12/17 - pig tail to be removed 09/13 or 09/14 - s/p exploratory thoracotomy with CT surgery - remains with right chest tube and right pigtail - will speak to CT surgery about plan for removal - Chest tube in place on suction since 09/08/17 - Pigtail inserted by IR 09/08/17 - pain management with percocet 2 tabs po q4 prn, morphine, lidoderm patch Prophylaxis - SCDs - Lovenox - No indication for GI DW Dr. Negrete, Dyan Rodriguez DO, PGY-1 <Ronald Negrete - Last Filed: 09/12/17 15:45> Objective - Vital Signs/Intake and Output Vital Signs (last 24 hours): Temp Pulse Resp BP Pulse Ox 98.5 F 105 H 20 113/78 96 09/12/17 14:00 09/12/17 14:00 09/12/17 14:00 09/12/17 14:00 09/12/17 14:00 Intake and Output: 09/12/17 09/12/17 06:59 18:59 Intake Total 240 250 Output Total 0 215 Balance 240 35 - Medications Medications: Current Medications Acetaminophen (Tylenol 325mg Tab) 650 mg PO Q6 PRN PRN Reason: Fever >100.4 F Last Admin: 09/09/17 21:50 Dose: 650 mg Enoxaparin Sodium (Lovenox) 40 mg SC DAILY [facility] Last Admin: 09/11/17 10:23 Dose: 40 mg Hydromorphone HCl (Dilaudid) 1 mg IVP Q4H PRN PRN Reason: Pain, severe (8-10) Last Admin: 09/12/17 11:25 Dose: 1 mg Ibuprofen (Motrin Tab) 600 mg PO TID PRN PRN Reason: Pain, moderate (4-7) Lidocaine (Lidoderm) 1 ea TD DAILY [facility] Last Admin: 09/12/17 11:25 Dose: 1 ea Morphine Sulfate (Morphine) 1 mg IVP Q4H PRN PRN Reason: Pain, severe (8-10) Ondansetron HCl (Zofran Inj) 4 mg IVP Q4 PRN PRN Reason: Nausea/Vomiting - Labs Labs: 09/12/17 06:20 09/12/17 06:20 PT 11.2 SECONDS (9.7-12.2) 09/07/17 21:55 INR 1.0 09/07/17 21:55 APTT 29 SECONDS (21-34) 09/07/17 21:55 Attending/Attestation - Attestation I have personally seen and examined this patient.: Yes I have fully participated in the care of the patient.: Yes I have reviewed all pertinent clinical information, including history, physical exam and plan: Yes Notes (Text): Medical attending: Patient was seen and examined by me. Agree with the above note. As previosuly mentioned this this a 47 year old female with reccurrent pneumothorax We saw patient before she went to the OR today where she then underwent thoractomy, the report there was a foreign body. Will clarity about this later. She reported feeling ok when we saw her. Some tenderness near the area of the chest tube and pig tail. Ronald Negrete
--- NOTE | 2017-09-12 19:32 | OP ---
PROCEDURE DATE: 09/12/2017 PREOPERATIVE DIAGNOSIS: Recurrent pneumothorax. PROCEDURE: Right thoracotomy and closure of air leak or resection of webs, exploration of the chest. SURGEON: Willie Baez MD ACOUSTICAL TILE DRILL PRESS OPERATOR: . ANESTHESIA: General. REFERRING DOCTOR: Kyle Summers DO. INDICATIONS FOR SURGERY: This is a 47-year-old woman with known history of emphysema and previous pneumothorax x2 with chest tube placement, comes in now with another pneumothorax loculated, appeared to be in the lower lobe. A chest tube was placed. The pneumothorax persisted. CAT scan was obtained and a CT-guided pigtail catheter was placed with resolution of the pneumothorax, but since this is the third time, we opted for surgery. She understood the risks and benefits of surgery and her daughter who interpreted understood and consented. FINDINGS: The chest tube that had been placed was in the subcutaneous and pleural space, the subpleural space was not actually in the precavity of the chest. The pigtail was in good position. We also found a small piece of rubber consistent with a small portion of a glove that was in the chest and this was removed and sent for pathology. Due to marked adhesions, the upper lobe was fastened to the chest wall. The lower lobe was a little more adherent, but less so and after testing with warm saline and increasing the pressure to see if there were any air leaks, we were not able to ascertain or determine any air leak. DESCRIPTION OF PROCEDURE: After general endotracheal anesthesia was applied with the right side up, all pressure points were cushioned. We made a small right thoracotomy in the mid chest, mid axillary line, entered the chest under direct vision. The findings were as I mentioned. After we explored the chest, found no obvious air leak, we closed the wound in 3 layers and the patient was sent to recovery. If she has a persistent pneumothorax afterwards, she would need a large thoracotomy to clean out the entire upper and lower lobe chest wall adhesions in order to find any specific emphysematous portion of lung to resect. Willie Baez MD
[2017-09-13 06:58] LABS: BASO % 0.2 % (0.0-2.0); EOS # 0.3 K/uL (0.0-0.7); EOS % 1.5 % (0.0-4.0); HEMOGLOBIN 12.7 g/dL (11.0-16.0); LYMPH # 2.3 K/uL (1.0-4.3); LYMPH % 11.9 % (20.0-40.0); MEAN CELL VOLUME 92.7 fL (81.0-99.0); MEAN CORPUSCULAR HEMOGLOBIN 32.1 pg (27.0-31.0); MEAN CORPUSCULAR HGB CONC 34.6 g/dL (33.0-37.0); MEAN PLATELET VOLUME 8.2 fL (7.2-11.7); MONO # 1.9 K/uL (0.0-0.8); MONO % 9.8 % (0.0-10.0); NEUT # 14.7 K/uL (1.8-7.0); NEUT % 76.6 % (50.0-75.0); RBC 3.96 Mil/uL (3.80-5.20); RED CELL DISTRIBUTION WIDTH 12.8 % (11.5-14.5); WHITE BLOOD COUNT 19.2 K/uL (4.8-10.8)
[2017-09-13 07:38] LABS: ALBUMIN 3.3 g/dL (3.5-5.0); ALT/SGPT 26 U/L (9-52); AST/SGOT 27 U/L (14-36); BLOOD UREA NITROGEN 12 mg/dL (7-17); CALCIUM 8.8 mg/dl (8.6-10.4); GFR AFRICAN-AMERICAN > 60; GFR NON-AFRICAN AMERICAN > 60
--- NOTE | 2017-09-13 09:36 | RAD ---
HISTORY: s/p right thoracotomy COMPARISON: Chest radiograph dated 09/11/2017. FINDINGS: LUNGS: Increasing right basilar atelectasis post thoracotomy. PLEURA: No significant pleural effusion identified. No appreciable pneumothorax, but evaluation is difficult. CARDIOVASCULAR: Normal. OSSEOUS STRUCTURES: No significant abnormalities. VISUALIZED UPPER ABDOMEN: Normal. OTHER FINDINGS: New right-sided subcutaneous emphysema. Right basilar pigtail chest tube redemonstrated. IMPRESSION: Status post right thoracotomy with increasing right basilar atelectasis. No appreciable pneumothorax, but evaluation is difficult. Right basilar pigtail chest tube remains in place.
[2017-09-13] MEDS: Enoxaparin 40 mg Syringe SC SCH ×2 (10:14)
[2017-09-13] MEDS: Lidocaine 5% Patch TD SCH (10:14)
--- NOTE | 2017-09-13 11:17 | CP.PCM.PN ---
<NarayanvonnieDyan - Last Filed: 09/13/17 11:12> Subjective - Date & Time of Evaluation Date of Evaluation: 09/13/17 Time of Evaluation: 07:00 - Subjective Subjective: Medicine Note for Hospitalist Service- Dr. Negrete Patient was and seen and examined at bedside. Patient reports she has pain at the pigtail site, but otherwise is breathing well. Denied fever, chills, headache, chest pain, abdominal pain, n/v/d/c/, or urinary symptoms. Objective - Vital Signs/Intake and Output Vital Signs (last 24 hours): Temp Pulse Resp BP Pulse Ox 98.3 F 112 H 20 117/77 95 09/13/17 10:16 09/13/17 10:16 09/13/17 10:16 09/13/17 07:00 09/13/17 10:16 Intake and Output: 09/13/17 09/13/17 06:59 18:59 Intake Total 440 Output Total 620 Balance -180 - Medications Medications: Current Medications Acetaminophen (Tylenol 325mg Tab) 650 mg PO Q6 PRN PRN Reason: Fever >100.4 F Last Admin: 09/09/17 21:50 Dose: 650 mg Diphenhydramine HCl (Benadryl) 25 mg PO ONCE PRN PRN Reason: Agitation Last Admin: 09/12/17 21:55 Dose: 25 mg Enoxaparin Sodium (Lovenox) 40 mg SC DAILY [facility] Last Admin: 09/13/17 10:14 Dose: 40 mg Enoxaparin Sodium (Lovenox) 40 mg SC DAILY [facility] Last Admin: 09/13/17 10:14 Dose: Not Given Hydromorphone HCl (Dilaudid) 1 mg IVP Q4H PRN PRN Reason: Pain, severe (8-10) Last Admin: 09/12/17 21:54 Dose: 1 mg Ibuprofen (Motrin Tab) 600 mg PO TID PRN PRN Reason: Pain, moderate (4-7) Last Admin: 09/12/17 18:17 Dose: 600 mg Ketorolac Tromethamine (Toradol) 30 mg IVP Q6 [facility] Stop: 09/13/17 12:01 Last Admin: 09/13/17 05:55 Dose: 30 mg Lidocaine (Lidoderm) 1 ea TD DAILY [facility] Last Admin: 09/13/17 10:14 Dose: 1 ea Morphine Sulfate (Morphine) 1 mg IVP Q4H PRN PRN Reason: Pain, severe (8-10) Ondansetron HCl (Zofran Inj) 4 mg IVP Q4 PRN PRN Reason: Nausea/Vomiting - Labs Labs: 09/13/17 06:49 09/13/17 06:49 PT 11.2 SECONDS (9.7-12.2) 09/07/17 21:55 INR 1.0 09/07/17 21:55 APTT 29 SECONDS (21-34) 09/07/17 21:55 - Additional Findings Additional findings: - Constitutional Appears: Non-toxic, No Acute Distress - Head Exam Head Exam: ATRAUMATIC - ENT Exam ENT Exam: Mucous Membranes Moist - Respiratory Exam Respiratory Exam: Clear to Auscultation Bilateral. absent: Rales, Rhonchi, Wheezes Additional comments: pigtail in place (R), dressings c/d/i - Cardiovascular Exam Cardiovascular Exam: Tachycardia, REGULAR RHYTHM, +S1, +S2. absent: Gallop, Rubs, Systolic Murmur - GI/Abdominal Exam GI & Abdominal Exam: Normal Bowel Sounds, Soft. absent: Distended, Firm, Guarding, Tenderness - Extremities Exam Extremities exam: Negative for: pedal edema, tenderness - Neurological Exam Neurological exam: Alert, Oriented x3 - Psychiatric Exam Psychiatric exam: Normal Affect, Normal Mood - Skin Skin Exam: Dry, Intact, Normal Color, Warm Assessment and Plan - Assessment and Plan (Free Text) Assessment: 47 year old female with no significant past medical hx is admitted for recurrent right pneumothorax. Chest tube was placed at bedside in the ED but did not achieve complete resolution of the pneumo. Pigtail was inserted . Pneumo is now resolving. S/P exploratory thoracotomy 09/12/17 Plan: Recurrent Spontaneous Pneumothorax (R) - Surgery consulted Dr. Sepulveda - s/p chest tube insertion 09/08/17 removed - Cardiothoracic surgery consulted Dr. Baez - s/p exploratory thoractomy and removal of right chest tube removed 09/12/17 - s/p exploratory thoracotomy with CT surgery - remains with right pigtail - will speak to CT surgery about plan for removal - Pigtail inserted by IR 09/08/17, remains in place - pain management with percocet 2 tabs po q4 prn, morphine, lidoderm patch - All management as per Surgical Team Prophylaxis - SCDs - Lovenox - No indication for GI DW Dr. Negrete, Dyan Rodriguez DO, PGY-1 <Ronald Negrete - Last Filed: 09/13/17 15:24> Objective - Vital Signs/Intake and Output Vital Signs (last 24 hours): Temp Pulse Resp BP Pulse Ox 98.3 F 112 H 20 117/77 95 09/13/17 10:16 09/13/17 12:47 09/13/17 10:16 09/13/17 07:00 09/13/17 10:16 Intake and Output: 09/13/17 09/13/17 06:59 18:59 Intake Total 440 Output Total 620 18 Balance -180 -18 - Medications Medications: Current Medications Acetaminophen (Tylenol 325mg Tab) 650 mg PO Q6 PRN PRN Reason: Fever >100.4 F Last Admin: 09/09/17 21:50 Dose: 650 mg Diphenhydramine HCl (Benadryl) 25 mg PO ONCE PRN PRN Reason: Agitation Last Admin: 09/12/17 21:55 Dose: 25 mg Enoxaparin Sodium (Lovenox) 40 mg SC DAILY [facility] Last Admin: 09/13/17 10:14 Dose: 40 mg Enoxaparin Sodium (Lovenox) 40 mg SC DAILY [facility] Last Admin: 09/13/17 10:14 Dose: Not Given Hydromorphone HCl (Dilaudid) 1 mg IVP Q4H PRN PRN Reason: Pain, severe (8-10) Last Admin: 09/12/17 21:54 Dose: 1 mg Ibuprofen (Motrin Tab) 600 mg PO TID PRN PRN Reason: Pain, moderate (4-7) Last Admin: 09/12/17 18:17 Dose: 600 mg Lidocaine (Lidoderm) 1 ea TD DAILY [facility] Last Admin: 09/13/17 10:14 Dose: 1 ea Morphine Sulfate (Morphine) 1 mg IVP Q4H PRN PRN Reason: Pain, severe (8-10) Ondansetron HCl (Zofran Inj) 4 mg IVP Q4 PRN PRN Reason: Nausea/Vomiting - Labs Labs: 09/13/17 06:49 09/13/17 06:49 PT 11.2 SECONDS (9.7-12.2) 09/07/17 21:55 INR 1.0 09/07/17 21:55 APTT 29 SECONDS (21-34) 09/07/17 21:55 Attending/Attestation - Attestation I have personally seen and examined this patient.: Yes I have fully participated in the care of the patient.: Yes I have reviewed all pertinent clinical information, including history, physical exam and plan: Yes Notes (Text): 09/13/17 15:24 Medical attending: Patient was seen and examined by me, agree with the above note by the medical claims manager. Patient was not in any acute distress when we saw her. Her family member was present as well at bedside. At this moment she still has the pigtail catheter. She had removal chest tube yesterday. Thank you very much, Ronald Negrete
[2017-09-13] MEDS: HYDROmorphone 0.5 mg/0.5 ml ISec IVP PRN ×2 (18:12→22:44)
[2017-09-13] MEDS ORDERED: Iodixanol 320 MG/ML 100 ML BOTTLE IV ONE (19:17)
--- NOTE | 2017-09-13 20:23 | CP.PCM.PN ---
Subjective - Date & Time of Evaluation Date of Evaluation: 09/13/17 Time of Evaluation: 20:18 - Subjective Subjective: Cardiothoracic Progress Note For Dr. Baez This 47F was seen and evaluated this AM no acute events overnight. She reporst pain is better. She reports she is feeling better compared with yesterday. She denies SOB or chest pain. Her CT has no air leaks. Objective - Vital Signs/Intake and Output Vital Signs (last 24 hours): Temp Pulse Resp BP Pulse Ox 101.2 F H 100 H 20 129/82 95 09/13/17 18:11 09/13/17 16:26 09/13/17 15:00 09/13/17 15:00 09/13/17 15:00 Intake and Output: 09/13/17 09/14/17 18:59 06:59 Output Total 18 Balance -18 - Medications Medications: Current Medications Acetaminophen (Tylenol 325mg Tab) 650 mg PO Q6 PRN PRN Reason: Fever >100.4 F Last Admin: 09/13/17 18:11 Dose: 650 mg Diphenhydramine HCl (Benadryl) 25 mg PO ONCE PRN PRN Reason: Agitation Last Admin: 09/12/17 21:55 Dose: 25 mg Enoxaparin Sodium (Lovenox) 40 mg SC DAILY [facility] Last Admin: 09/13/17 10:14 Dose: 40 mg Enoxaparin Sodium (Lovenox) 40 mg SC DAILY [facility] Last Admin: 09/13/17 10:14 Dose: Not Given Hydromorphone HCl (Dilaudid) 1 mg IVP Q4H PRN PRN Reason: Pain, severe (8-10) Last Admin: 09/13/17 18:12 Dose: 1 mg Ceftriaxone Sodium 1 gm/ (Sodium Chloride) 100 mls @ 100 mls/hr IVPB Q12H [facility] PRN Reason: Protocol Azithromycin 500 mg/ Sodium (Chloride) 250 mls @ 250 mls/hr IVPB DAILY [facility] PRN Reason: Protocol Ibuprofen (Motrin Tab) 600 mg PO TID PRN PRN Reason: Pain, moderate (4-7) Last Admin: 09/12/17 18:17 Dose: 600 mg Lidocaine (Lidoderm) 1 ea TD DAILY [facility] Last Admin: 09/13/17 10:14 Dose: 1 ea Morphine Sulfate (Morphine) 1 mg IVP Q4H PRN PRN Reason: Pain, severe (8-10) Ondansetron HCl (Zofran Inj) 4 mg IVP Q4 PRN PRN Reason: Nausea/Vomiting - Labs Labs: 09/13/17 06:49 09/13/17 06:49 PT 11.2 SECONDS (9.7-12.2) 09/07/17 21:55 INR 1.0 09/07/17 21:55 APTT 29 SECONDS (21-34) 09/07/17 21:55 - Constitutional Appears: Non-toxic, No Acute Distress - Head Exam Head Exam: ATRAUMATIC, NORMOCEPHALIC - Eye Exam Eye Exam: EOMI - ENT Exam ENT Exam: Mucous Membranes Moist - Respiratory Exam Respiratory Exam: NORMAL BREATHING PATTERN Additional comments: CT in place with bandage, clean dry and intact - Cardiovascular Exam Cardiovascular Exam: +S1, +S2 - GI/Abdominal Exam GI & Abdominal Exam: Soft. absent: Guarding, Rigid, Tenderness - Neurological Exam Neurological Exam: Alert, Awake Assessment and Plan - Assessment and Plan (Free Text) Assessment: 47F w/ recurrent Right pneumothorax s/p right thoracotomy POD#2 Plan: - AM CXR - CT on suction - pain control D/W Dr. Nestor Salazar PGY2
--- NOTE | 2017-09-13 21:45 | CT ---
EXAM: CT Angiography Chest With Intravenous Contrast EXAM DATE/TIME: Exam ordered 09/13/2017 7:05 PM CLINICAL HISTORY: 47 years old, female; Signs and symptoms; Shortness of breath and tachypnea; Additional info: Shortness of breath, chest pain, tacycardia TECHNIQUE: Axial computed tomographic angiography images of the chest with intravenous contrast using pulmonary embolism protocol. All CT scans at this facility use one or more dose reduction techniques, viz.: automated exposure control; ma/kV adjustment per patient size (including targeted exams where dose is matched to indication; i.e. head); or iterative reconstruction technique. MIP reconstructed images were created and reviewed. Coronal and sagittal reformatted images were created and reviewed. CONTRAST: 100 mL of visipaque 320 administered intravenously. COMPARISON: CR - CHEST TWO VIEWS (PA/LAT) 2015-07-21 20:30 FINDINGS: Pulmonary arteries: Timing of imaging with contrast administration was not optimized for delineation of the pulmonary arteries. No definite thrombosis seen. Aorta: No acute findings. No thoracic aortic aneurysm. Great vessels of aortic arch: There is an aberrant right subclavian artery. Lungs: Compression atelectasis is noted in the dependent portion of the right lung particularly involving the right lower lobe which is almost entirely atelectatic with relative sparing of superior segment. Fluid dissects into the major fissure on the right. Compression atelectasis is noted of the right middle lobe. Pleural space: There is a right-sided hydropneumothorax. Heart: Unremarkable. No cardiomegaly. No significant pericardial effusion. No evidence of RV dysfunction. Bones/joints: No acute fracture. No dislocation. Soft tissues: Subcutaneous emphysema is noted within the soft tissues of the right side of the neck dissecting into the chest wall anteriorly and posteriorly. Lymph nodes: Unremarkable. No enlarged lymph nodes. Stomach and bowel: A large amount of stool is seen in the colon. No mass. Tubes, lines and devices: There is a right-sided pleural catheter. IMPRESSION: 1. No definite pulmonary embolism. Timing of contrast administration was not optimized for opacification of the pulmonary arteries. 2. Right hydropneumothorax. A pleural catheter is in place low and lateral within the pleural space. 3. Extensive subcutaneous emphysema related to #1. 4. Compression atelectasis involving most of the right lower lobe, of the right middle lobe.
[2017-09-14 01:57] LABS: CK-MB 0.89 ng/mL (0.0-3.38)
[2017-09-14] MEDS: HYDROmorphone 0.5 mg/0.5 ml ISec IVP PRN (04:26)
[2017-09-14 07:50] LABS: BASO # 0.1 K/uL (0.0-0.2); BASO % 0.5 % (0.0-2.0); EOS # 0.3 K/uL (0.0-0.7); EOS % 1.9 % (0.0-4.0); HEMOGLOBIN 11.4 g/dL (11.0-16.0); LYMPH # 2.2 K/uL (1.0-4.3); LYMPH % 13.7 % (20.0-40.0); MEAN CELL VOLUME 92.5 fL (81.0-99.0); MEAN CORPUSCULAR HEMOGLOBIN 32.4 pg (27.0-31.0); MEAN CORPUSCULAR HGB CONC 35.1 g/dL (33.0-37.0); MEAN PLATELET VOLUME 8.1 fL (7.2-11.7); MONO # 1.3 K/uL (0.0-0.8); MONO % 8.5 % (0.0-10.0); NEUT % 75.4 % (50.0-75.0); RBC 3.52 Mil/uL (3.80-5.20); RED CELL DISTRIBUTION WIDTH 13.1 % (11.5-14.5); WHITE BLOOD COUNT 15.9 K/uL (4.8-10.8)
[2017-09-14 08:06] LABS: ALBUMIN 3.2 g/dL (3.5-5.0); ALT/SGPT 17 U/L (9-52); AST/SGOT 26 U/L (14-36); BLOOD UREA NITROGEN 6 mg/dL (7-17); CALCIUM 8.1 mg/dl (8.6-10.4); GFR AFRICAN-AMERICAN > 60; GFR NON-AFRICAN AMERICAN > 60
[2017-09-14 08:13] LABS: CK-MB 0.63 ng/mL (0.0-3.38)
[2017-09-14] MEDS: Morphine 4 MG/ML VIAL IVP PRN ×2 (08:39→13:33)
--- NOTE | 2017-09-14 09:17 | CP.PCM.PN ---
Subjective - Date & Time of Evaluation Date of Evaluation: 09/14/17 Time of Evaluation: 06:45 - Subjective Subjective: Thoracic Surgery- Dr. Baez Patient seen and examined at bedside this AM. Pain is significantly improved from yesterday. No air leak detected. Denies chest pain, shortness of breath, heart palpitations, nausea, vomiting, fevers, chills, diaphoresis. Objective - Vital Signs/Intake and Output Vital Signs (last 24 hours): Temp Pulse Resp BP Pulse Ox 99.6 F 109 H 20 118/75 99 09/14/17 09:13 09/14/17 09:13 09/14/17 09:13 09/14/17 09:13 09/14/17 09:13 Intake and Output: 09/14/17 09/14/17 06:59 18:59 Intake Total 220 400 Output Total 3 602 Balance 217 -202 - Medications Medications: Current Medications Acetaminophen (Tylenol 325mg Tab) 650 mg PO Q6 [facility] Stop: 09/15/17 00:01 Last Admin: 09/14/17 08:51 Dose: 650 mg Diphenhydramine HCl (Benadryl) 25 mg PO ONCE PRN PRN Reason: Agitation Last Admin: 09/12/17 21:55 Dose: 25 mg Enoxaparin Sodium (Lovenox) 40 mg SC DAILY [facility] Last Admin: 09/13/17 10:14 Dose: 40 mg Enoxaparin Sodium (Lovenox) 40 mg SC DAILY [facility] Last Admin: 09/13/17 10:14 Dose: Not Given Ceftriaxone Sodium 1 gm/ (Sodium Chloride) 100 mls @ 100 mls/hr IVPB Q12H [facility] PRN Reason: Protocol Last Admin: 09/14/17 05:32 Dose: 100 mls/hr Azithromycin 500 mg/ Sodium (Chloride) 250 mls @ 250 mls/hr IVPB DAILY [facility] PRN Reason: Protocol Ibuprofen (Motrin Tab) 600 mg PO TID PRN PRN Reason: Pain, moderate (4-7) Last Admin: 09/12/17 18:17 Dose: 600 mg Lidocaine (Lidoderm) 1 ea TD DAILY [facility] Last Admin: 09/13/17 10:14 Dose: 1 ea Morphine Sulfate (Morphine) 1 mg IVP Q4H PRN PRN Reason: Pain, severe (8-10) Last Admin: 09/14/17 08:39 Dose: 1 mg Ondansetron HCl (Zofran Inj) 4 mg IVP Q4 PRN PRN Reason: Nausea/Vomiting - Labs Labs: 09/14/17 07:40 09/14/17 07:40 PT 11.2 SECONDS (9.7-12.2) 09/07/17 21:55 INR 1.0 09/07/17 21:55 APTT 29 SECONDS (21-34) 09/07/17 21:55 - Constitutional Appears: Non-toxic, No Acute Distress - Head Exam Head Exam: ATRAUMATIC - Eye Exam Eye Exam: EOMI. absent: Scleral icterus - Respiratory Exam Respiratory Exam: NORMAL BREATHING PATTERN. absent: Accessory Muscle Use, Respiratory Distress - Cardiovascular Exam Cardiovascular Exam: +S1, +S2. absent: Bradycardia, Tachycardia - GI/Abdominal Exam GI & Abdominal Exam: Soft. absent: Distended, Firm, Guarding, Rigid, Tenderness - Extremities Exam Extremities Exam: Normal Inspection - Neurological Exam Neurological Exam: Alert, Awake, Oriented x3 - Skin Skin Exam: Intact, Warm Assessment and Plan - Assessment and Plan (Free Text) Assessment: 47F w/ recurrent Right pneumothorax s/p right thoracotomy POD#3 Plan: - AM CXR - no air leak detected, Chest tube to water seal - pain control PRN - encourage OOB & IC use - d/w Dr. Baez surgical attending PGY1
--- NOTE | 2017-09-14 09:21 | RAD ---
Chest x-ray single frontal view History: Chest tube placement. Comparison: 09/13/2017 Findings: Persistent right basilar chest tube. Persistent moderate loculated right-sided hydro pneumothorax. Persistent consolidative changes seen within the right mid to lower lung zone. Subcutaneous air within the right flank soft tissues. Impression: Persistent right basilar chest tube. Persistent moderate loculated right-sided hydro pneumothorax. Persistent consolidative changes seen within the right mid to lower lung zone. Subcutaneous air within the right flank soft tissues.
[2017-09-14] MEDS: Lidocaine 5% Patch TD SCH (10:26)
--- NOTE | 2017-09-14 10:35 | CP.PCM.PN ---
<Beto Rodrigueza - Last Filed: 09/14/17 10:21> Subjective - Date & Time of Evaluation Date of Evaluation: 09/14/17 Time of Evaluation: 09:00 - Subjective Subjective: Medicine Note for Hospitalist Service- Dr. Negrete Patient was and seen and examined at bedside. Patient reports she has pain at the pigtail site, but otherwise is breathing well. She is off suction, pending surgery for concern of subcutaneous emphysema and hydropneumothorax. Denied fever, chills, headache, chest pain, abdominal pain, n/v/d/c/, or urinary symptoms. Objective - Vital Signs/Intake and Output Vital Signs (last 24 hours): Temp Pulse Resp BP Pulse Ox 99.6 F 109 H 20 118/75 99 09/14/17 09:13 09/14/17 09:13 09/14/17 09:13 09/14/17 09:13 09/14/17 09:13 Intake and Output: 09/14/17 09/14/17 06:59 18:59 Intake Total 220 400 Output Total 3 602 Balance 217 -202 - Medications Medications: Current Medications Acetaminophen (Tylenol 325mg Tab) 650 mg PO Q6 [facility] Stop: 09/15/17 00:01 Last Admin: 09/14/17 08:51 Dose: 650 mg Diphenhydramine HCl (Benadryl) 25 mg PO ONCE PRN PRN Reason: Agitation Last Admin: 09/12/17 21:55 Dose: 25 mg Ceftriaxone Sodium 1 gm/ (Sodium Chloride) 100 mls @ 100 mls/hr IVPB Q12H [facility] PRN Reason: Protocol Last Admin: 09/14/17 05:32 Dose: 100 mls/hr Azithromycin 500 mg/ Sodium (Chloride) 250 mls @ 250 mls/hr IVPB DAILY [facility] PRN Reason: Protocol Ibuprofen (Motrin Tab) 600 mg PO TID PRN PRN Reason: Pain, moderate (4-7) Last Admin: 09/12/17 18:17 Dose: 600 mg Lidocaine (Lidoderm) 1 ea TD DAILY [facility] Last Admin: 09/13/17 10:14 Dose: 1 ea Morphine Sulfate (Morphine) 1 mg IVP Q4H PRN PRN Reason: Pain, severe (8-10) Last Admin: 09/14/17 08:39 Dose: 1 mg Ondansetron HCl (Zofran Inj) 4 mg IVP Q4 PRN PRN Reason: Nausea/Vomiting - Labs Labs: 09/14/17 07:40 09/14/17 07:40 PT 11.2 SECONDS (9.7-12.2) 09/07/17 21:55 INR 1.0 09/07/17 21:55 APTT 29 SECONDS (21-34) 09/07/17 21:55 Assessment and Plan - Assessment and Plan (Free Text) Plan: Recurrent Spontaneous Pneumothorax (R) - Surgery consulted Dr. Sepulveda - s/p chest tube insertion 09/08/17 removed - Cardiothoracic surgery consulted Dr. Baez - s/p exploratory thoractomy and removal of right chest tube removed 09/12/17 - Pigtail inserted by IR 09/08/17, remains in place - s/p exploratory thoracotomy with CT surgery - remains with right pigtail - 09/14/17 - She is off suction, pending removal - Pain management with morphine, lidoderm patch, and tylenol as needed - All management as per Surgical Team Fever - Febrile, leukocytosis with left shift, tachycardia (as high as 140s on tele) - CTA - negative for PE, noted subq emphysema and hydropneumothorax - spoke with surgery - noted and not concerned - Likely 2/2 atelectasis, since febrile within 24 hours of OR - Blood cultures ordered, Rocephin and Azithro started 09/13 & 09/14 - will follow cultures Prophylaxis - No indication for GI PPX - SCDs DW Dr. Negrete, Dyan Rodriguez DO, PGY-1 <Ronald Negrete - Last Filed: 09/14/17 12:13> Objective - Vital Signs/Intake and Output Vital Signs (last 24 hours): Temp Pulse Resp BP Pulse Ox 98.4 F 90 16 106/70 99 09/14/17 11:06 09/14/17 11:06 09/14/17 11:06 09/14/17 11:06 09/14/17 09:13 Intake and Output: 09/14/17 09/14/17 06:59 18:59 Intake Total 220 400 Output Total 3 602 Balance 217 -202 - Medications Medications: Current Medications Acetaminophen (Tylenol 325mg Tab) 650 mg PO Q6 [facility] Stop: 09/15/17 00:01 Last Admin: 09/14/17 08:51 Dose: 650 mg Diphenhydramine HCl (Benadryl) 25 mg PO ONCE PRN PRN Reason: Agitation Last Admin: 09/12/17 21:55 Dose: 25 mg Ceftriaxone Sodium 1 gm/ (Sodium Chloride) 100 mls @ 100 mls/hr IVPB Q12H [facility] PRN Reason: Protocol Last Admin: 09/14/17 05:32 Dose: 100 mls/hr Azithromycin 500 mg/ Sodium (Chloride) 250 mls @ 250 mls/hr IVPB DAILY [facility] PRN Reason: Protocol Last Admin: 09/14/17 10:53 Dose: 250 mls/hr Ibuprofen (Motrin Tab) 600 mg PO TID PRN PRN Reason: Pain, moderate (4-7) Last Admin: 09/12/17 18:17 Dose: 600 mg Lidocaine (Lidoderm) 1 ea TD DAILY [facility] Last Admin: 09/14/17 10:26 Dose: 1 ea Morphine Sulfate (Morphine) 1 mg IVP Q4H PRN PRN Reason: Pain, severe (8-10) Last Admin: 09/14/17 08:39 Dose: 1 mg Ondansetron HCl (Zofran Inj) 4 mg IVP Q4 PRN PRN Reason: Nausea/Vomiting - Labs Labs: 09/14/17 07:40 09/14/17 07:40 PT 11.2 SECONDS (9.7-12.2) 09/07/17 21:55 INR 1.0 09/07/17 21:55 APTT 29 SECONDS (21-34) 09/07/17 21:55 Attending/Attestation - Attestation I have personally seen and examined this patient.: Yes I have fully participated in the care of the patient.: Yes I have reviewed all pertinent clinical information, including history, physical exam and plan: Yes Notes (Text): 09/14/17 12:09 Medical attending: Patient was seen and examined by me. Agree with the above note by the resident The patient had less pain and discomfort when I saw her. Her tube is currently clamped at the moment and overnight there was some more fluid from the tube. Now at 120 out The patient was started on IV abx yesterday, the WBC decreased. Blood cultures drawn yesterday as well. The patient also had a CTA of the chest. Ronald Negrete
[2017-09-14] MEDS: Azithromycin 500 MG in Sodium Chloride 0.9% 250 ML IVPB SCH (10:53)
[2017-09-14] MEDS: Enoxaparin 40 mg Syringe SC SCH ×2 (15:15→15:16)
[2017-09-14 16:17] VITALS: RESP 20
[2017-09-15 07:49] LABS: BASO % 0.4 % (0.0-2.0); EOS # 0.6 K/uL (0.0-0.7); EOS % 4.5 % (0.0-4.0); HEMOGLOBIN 11.5 g/dL (11.0-16.0); LYMPH # 1.6 K/uL (1.0-4.3); LYMPH % 12.5 % (20.0-40.0); MEAN CELL VOLUME 93.1 fL (81.0-99.0); MEAN CORPUSCULAR HEMOGLOBIN 32.1 pg (27.0-31.0); MEAN CORPUSCULAR HGB CONC 34.5 g/dL (33.0-37.0); MEAN PLATELET VOLUME 8.5 fL (7.2-11.7); MONO # 1.1 K/uL (0.0-0.8); MONO % 8.5 % (0.0-10.0); NEUT # 9.2 K/uL (1.8-7.0); NEUT % 74.1 % (50.0-75.0); RBC 3.57 Mil/uL (3.80-5.20); RED CELL DISTRIBUTION WIDTH 13.3 % (11.5-14.5); WHITE BLOOD COUNT 12.5 K/uL (4.8-10.8)
--- NOTE | 2017-09-15 08:10 | RAD ---
Chest x-ray single frontal view History: Status post thoracotomy. Comparison: 09/14/2017 Findings Right basilar chest tube in place. Persistent moderate loculated right-sided hydro pneumothorax and or loculated pleural effusion. Consolidative changes in the right mid to lower lung zone. Subcutaneous air within the right flank soft tissues. Impression: No significant interval change.
[2017-09-15 08:13] LABS: ALB/GLOB RATIO 0.9 (1.0-2.1); ALBUMIN 3.3 g/dL (3.5-5.0); ALT/SGPT 24 U/L (9-52); AST/SGOT 24 U/L (14-36); BLOOD UREA NITROGEN 10 mg/dL (7-17); CALCIUM 8.8 mg/dl (8.6-10.4); GFR AFRICAN-AMERICAN > 60; GFR NON-AFRICAN AMERICAN > 60
[2017-09-15] MEDS: Azithromycin 500 MG in Sodium Chloride 0.9% 250 ML IVPB SCH (09:31)
[2017-09-15] MEDS: Lidocaine 5% Patch TD SCH (09:31)
--- NOTE | 2017-09-15 11:19 | CP.PCM.PN ---
<MichaelDyan - Last Filed: 09/15/17 11:15> Subjective - Date & Time of Evaluation Date of Evaluation: 09/15/17 Time of Evaluation: 08:00 - Subjective Subjective: Medicine Note for Hospitalist Service- Dr. Negrete Patient was and seen and examined at bedside. Patient reports she has pain at the pigtail site, but otherwise is breathing well. Pigtail will be removed today. Denied fever, chills, headache, chest pain, abdominal pain, n/v/d/c/, or urinary symptoms. Objective - Vital Signs/Intake and Output Vital Signs (last 24 hours): Temp Pulse Resp BP Pulse Ox 98.3 F 88 20 112/75 97 09/15/17 07:42 09/15/17 07:42 09/15/17 07:42 09/15/17 07:42 09/15/17 07:42 Intake and Output: 09/15/17 09/15/17 06:59 18:59 Intake Total 400 Output Total 0 Balance 400 - Medications Medications: Current Medications Diphenhydramine HCl (Benadryl) 25 mg PO ONCE PRN PRN Reason: Agitation Last Admin: 09/12/17 21:55 Dose: 25 mg Ceftriaxone Sodium 1 gm/ (Sodium Chloride) 100 mls @ 100 mls/hr IVPB Q12H ANGELICA PRN Reason: Protocol Last Admin: 09/15/17 06:06 Dose: 100 mls/hr Azithromycin 500 mg/ Sodium (Chloride) 250 mls @ 250 mls/hr IVPB DAILY ANGELICA PRN Reason: Protocol Last Admin: 09/15/17 09:31 Dose: 250 mls/hr Ibuprofen (Motrin Tab) 600 mg PO TID PRN PRN Reason: Pain, moderate (4-7) Last Admin: 09/15/17 06:06 Dose: 600 mg Lidocaine (Lidoderm) 1 ea TD DAILY ANGELICA Last Admin: 09/15/17 09:31 Dose: 1 ea Ondansetron HCl (Zofran Inj) 4 mg IVP Q4 PRN PRN Reason: Nausea/Vomiting - Labs Labs: 09/15/17 07:35 09/15/17 07:35 PT 11.2 SECONDS (9.7-12.2) 09/07/17 21:55 INR 1.0 09/07/17 21:55 APTT 29 SECONDS (21-34) 09/07/17 21:55 - Additional Findings Additional findings: - Constitutional Appears: Non-toxic, No Acute Distress - Head Exam Head Exam: ATRAUMATIC - ENT Exam ENT Exam: Mucous Membranes Moist - Respiratory Exam Respiratory Exam: Clear to Auscultation Bilateral. absent: Rales, Rhonchi, Wheezes Additional comments: pigtail in place (R) off suction, dressings c/d/i - Cardiovascular Exam Cardiovascular Exam: Tachycardia, REGULAR RHYTHM, +S1, +S2. absent: Gallop, Rubs, Systolic Murmur - GI/Abdominal Exam GI & Abdominal Exam: Normal Bowel Sounds, Soft. absent: Distended, Firm, Guarding, Tenderness - Extremities Exam Extremities exam: Negative for: pedal edema, tenderness - Neurological Exam Neurological exam: Alert, Oriented x3 - Psychiatric Exam Psychiatric exam: Normal Affect, Normal Mood - Skin Skin Exam: Dry, Intact, Normal Color, Warm Assessment and Plan - Assessment and Plan (Free Text) Assessment: 47 year old female with no significant past medical hx is admitted for recurrent right pneumothorax. Chest tube was placed at bedside in the ED but did not achieve complete resolution of the pneumo. Pigtail was inserted . S/P exploratory thoracotomy 09/12/17. S/P pigtail removal 09/15/17. Plan: Recurrent Spontaneous Pneumothorax (R) - Surgery consulted Dr. Sepulveda - s/p chest tube insertion 09/08/17 removed - Cardiothoracic surgery consulted Dr. Baez - s/p exploratory thoractomy and removal of right chest tube removed 09/12/17 - Pigtail inserted by IR 09/08/17, remains in place - s/p exploratory thoracotomy with CT surgery - remains with right pigtail - 09/14/17 - She is off suction, removed 09/15/17 - Follow up repeat PA/ Lateral after pigtail removal - Pain management with morphine, lidoderm patch, and tylenol as needed - All management as per Surgical Team Fever - RESOLVED Likely 2/2 atelectasis - Febrile, leukocytosis with left shift, tachycardia (as high as 140s on tele) - CTA - negative for PE, noted subq emphysema and hydropneumothorax - spoke with surgery - noted and not concerned - Likely 2/2 atelectasis, since febrile within 24 hours of OR - Blood cultures ordered, Rocephin and Azithro started 09/13 & 09/14 - blood cultures negative to date Prophylaxis - No indication for GI PPX - SCDs Disposition: Anticipate discharge 09/16/18- once surgically cleared. DW Dr. Negrete, Dyan Rodriguez DO, PGY-1 <Ronald Negrete - Last Filed: 09/15/17 17:22> Objective - Vital Signs/Intake and Output Vital Signs (last 24 hours): Temp Pulse Resp BP Pulse Ox 98.3 F 103 H 20 112/75 97 09/15/17 07:42 09/15/17 16:00 09/15/17 07:42 09/15/17 07:42 09/15/17 07:42 Intake and Output: 09/15/17 09/15/17 06:59 18:59 Intake Total 1050 Output Total 0 Balance 1050 - Medications Medications: Current Medications Diphenhydramine HCl (Benadryl) 25 mg PO ONCE PRN PRN Reason: Agitation Last Admin: 09/12/17 21:55 Dose: 25 mg Ceftriaxone Sodium 1 gm/ (Sodium Chloride) 100 mls @ 100 mls/hr IVPB Q12H ANGELICA PRN Reason: Protocol Last Admin: 09/15/17 06:06 Dose: 100 mls/hr Azithromycin 500 mg/ Sodium (Chloride) 250 mls @ 250 mls/hr IVPB DAILY ANGELICA PRN Reason: Protocol Last Admin: 09/15/17 09:31 Dose: 250 mls/hr Ibuprofen (Motrin Tab) 600 mg PO TID PRN PRN Reason: Pain, moderate (4-7) Last Admin: 09/15/17 15:55 Dose: 600 mg Lidocaine (Lidoderm) 1 ea TD DAILY ANGELICA Last Admin: 09/15/17 09:31 Dose: 1 ea Ondansetron HCl (Zofran Inj) 4 mg IVP Q4 PRN PRN Reason: Nausea/Vomiting - Labs Labs: 09/15/17 07:35 09/15/17 07:35 PT 11.2 SECONDS (9.7-12.2) 09/07/17 21:55 INR 1.0 09/07/17 21:55 APTT 29 SECONDS (21-34) 09/07/17 21:55 Attending/Attestation - Attestation I have personally seen and examined this patient.: Yes I have fully participated in the care of the patient.: Yes I have reviewed all pertinent clinical information, including history, physical exam and plan: Yes Notes (Text): Medical attending: Patient was seen and examined by me. Agree with the above note by the resident The patient in the morning was not in any acute distress. Later in the afternoon she is pending removal of the pig tail cathter. She is no longer having fever or tachy cardia. If she remains stable overnight then we will consider DC tommorow. Ronald Negrete
--- NOTE | 2017-09-15 12:11 | RAD ---
HISTORY: s/p Pigtail removal COMPARISON: Multiple serial examinations preceding the most recent study: September 15, 2017. Time of the most recent examination: 07:33. TECHNIQUE: Chest PA and lateral FINDINGS: LUNGS: Right lower lobe consolidative changes. PLEURA: Stable right pleural effusion. Status post removal of pigtail catheter. CARDIOVASCULAR: No radiographic findings to suggest acute or significant cardiovascular disease. OSSEOUS STRUCTURES: No significant abnormalities. VISUALIZED UPPER ABDOMEN: Normal. OTHER FINDINGS: None. IMPRESSION: Status post pigtail catheter removal. Stable findings in the right pleural space. Stable right lower lobe infiltrate. Modest interval improvement in subcutaneous air.
--- NOTE | 2017-09-15 12:55 | CARD ---
APPROVED REPORT EKG Measurement Heart [id number] <Conclusion> Sinus tachycardia Otherwise normal ECG
[2017-09-16 06:31] LABS: BASO # 0.1 K/uL (0.0-0.2); BASO % 0.5 % (0.0-2.0); EOS # 0.5 K/uL (0.0-0.7); EOS % 5.4 % (0.0-4.0); HEMOGLOBIN 11.1 g/dL (11.0-16.0); LYMPH # 2.3 K/uL (1.0-4.3); LYMPH % 23.3 % (20.0-40.0); MEAN CELL VOLUME 93.6 fL (81.0-99.0); MEAN CORPUSCULAR HEMOGLOBIN 32.7 pg (27.0-31.0); MEAN CORPUSCULAR HGB CONC 34.9 g/dL (33.0-37.0); NEUT % 60.8 % (50.0-75.0); NRBC % 0.1 % (0.0-2.0); RBC 3.4 Mil/uL (3.80-5.20); RED CELL DISTRIBUTION WIDTH 13.2 % (11.5-14.5); WHITE BLOOD COUNT 9.9 K/uL (4.8-10.8)
[2017-09-16 06:47] LABS: ALB/GLOB RATIO 0.9 (1.0-2.1); ALBUMIN 3.2 g/dL (3.5-5.0); ALT/SGPT 61 U/L (9-52); AST/SGOT 49 U/L (14-36); BLOOD UREA NITROGEN 8 mg/dL (7-17); CALCIUM 9.2 mg/dl (8.6-10.4); GFR AFRICAN-AMERICAN > 60; GFR NON-AFRICAN AMERICAN > 60
--- NOTE | 2017-09-16 07:22 | CP.PCM.PN ---
<Jaxson Gooden - Last Filed: 09/16/17 07:22> Subjective - Date & Time of Evaluation Date of Evaluation: 09/16/17 Time of Evaluation: 06:40 - Subjective Subjective: Thoracic Surgery- Dr. Baez Patient seen and examined at bedside this AM. no acute events overnight. minimal pain. OOB and ambulating. tolerating current diet Denies Chest pain, shortness of breath, heart palpatations Objective - Vital Signs/Intake and Output Vital Signs (last 24 hours): Temp Pulse Resp BP Pulse Ox 98.3 F 98 H 20 167/79 H 96 09/16/17 04:30 09/16/17 04:30 09/16/17 04:30 09/16/17 04:30 09/16/17 04:30 Intake and Output: 09/16/17 09/16/17 06:59 18:59 Intake Total 600 Balance 600 - Medications Medications: Current Medications Ceftriaxone Sodium 1 gm/ (Sodium Chloride) 100 mls @ 100 mls/hr IVPB Q12H ANGELICA PRN Reason: Protocol Last Admin: 09/16/17 05:32 Dose: 100 mls/hr Azithromycin 500 mg/ Sodium (Chloride) 250 mls @ 250 mls/hr IVPB DAILY ANGELICA PRN Reason: Protocol Last Admin: 09/15/17 09:31 Dose: 250 mls/hr Ibuprofen (Motrin Tab) 600 mg PO TID PRN PRN Reason: Pain, moderate (4-7) Last Admin: 09/16/17 01:38 Dose: 600 mg Lidocaine (Lidoderm) 1 ea TD DAILY [facility] Last Admin: 09/15/17 09:31 Dose: 1 ea Ondansetron HCl (Zofran Inj) 4 mg IVP Q4 PRN PRN Reason: Nausea/Vomiting Tramadol HCl (Ultram) 50 mg PO TID PRN PRN Reason: Pain, moderate (4-7) Last Admin: 09/15/17 22:12 Dose: 50 mg - Labs Labs: 09/16/17 06:20 09/16/17 06:20 PT 11.2 SECONDS (9.7-12.2) 09/07/17 21:55 INR 1.0 09/07/17 21:55 APTT 29 SECONDS (21-34) 09/07/17 21:55 - Constitutional Appears: Non-toxic, No Acute Distress - Head Exam Head Exam: ATRAUMATIC - Eye Exam Eye Exam: EOMI. absent: Scleral icterus - ENT Exam ENT Exam: Mucous Membranes Moist - Respiratory Exam Respiratory Exam: NORMAL BREATHING PATTERN. absent: Accessory Muscle Use, Respiratory Distress Additional comments: Right thoractomy dressing, Clean, dry, intact - Cardiovascular Exam Cardiovascular Exam: +S1, +S2. absent: Bradycardia, Tachycardia - GI/Abdominal Exam GI & Abdominal Exam: Soft. absent: Distended, Firm, Guarding, Rigid, Tenderness - Neurological Exam Neurological Exam: Alert, Awake, Oriented x3 - Psychiatric Exam Psychiatric exam: Normal Affect - Skin Skin Exam: Intact, Warm Assessment and Plan - Assessment and Plan (Free Text) Assessment: 47F s/p Right thoracotomy POD#4 Plan: continue pulm toilet while pt in house cleared for discharge from a surgical standpoint Can shower follow up as an outpatient in 1-2 weeks after discharge discussed w/ Dr. Baez surgical attending [facility] PGY1 <Nathan Sepulveda B - Last Filed: 09/16/17 22:41> Objective - Vital Signs/Intake and Output Vital Signs (last 24 hours): Temp Pulse Resp BP Pulse Ox 98.1 F 81 20 125/84 97 09/16/17 07:50 09/16/17 07:50 09/16/17 07:50 09/16/17 07:50 09/16/17 07:50 - Labs Labs: 09/16/17 06:20 09/16/17 06:20 PT 11.2 SECONDS (9.7-12.2) 09/07/17 21:55 INR 1.0 09/07/17 21:55 APTT 29 SECONDS (21-34) 09/07/17 21:55
[2017-09-16 08:34] VITALS: BP 125/84; PULSE 81; TEMP 98.1; O2SAT 97
[2017-09-16] MEDS: Lidocaine 5% Patch TD SCH (09:00)
[2017-09-16] MEDS: Azithromycin 500 MG in Sodium Chloride 0.9% 250 ML IVPB SCH (09:37)
--- NOTE | 2017-09-16 10:49 | CP.PCM.DIS ---
Provider - Provider Date of Admission: 09/08/17 00:08 Attending physician: Ruy Walker MD Consults: Dr Coco Clements Time Spent in preparation of Discharge (in minutes): 29 Hospital Course - Lab Results Lab Results: Micro Results 09/13/17 19:30 Blood-Venous Blood Culture - Preliminary NO GROWTH AFTER 48 HOURS 09/13/17 19:47 Blood-Venous Blood Culture - Preliminary NO GROWTH AFTER 48 HOURS Most Recent Lab Values WBC 9.9 K/uL (4.8-10.8) 09/16/17 06:20 RBC 3.40 Mil/uL (3.80-5.20) L 09/16/17 06:20 Hgb 11.1 g/dL (11.0-16.0) 09/16/17 06:20 Hct 31.8 % (34.0-47.0) L 09/16/17 06:20 MCV 93.6 fL (81.0-99.0) 09/16/17 06:20 MCH 32.7 pg (27.0-31.0) H 09/16/17 06:20 MCHC 34.9 g/dL (33.0-37.0) 09/16/17 06:20 RDW 13.2 % (11.5-14.5) 09/16/17 06:20 Plt Count 404 K/uL (130-400) H 09/16/17 06:20 MPV 8.0 fL (7.2-11.7) 09/16/17 06:20 Neut % (Auto) 60.8 % (50.0-75.0) 09/16/17 06:20 Lymph % (Auto) 23.3 % (20.0-40.0) 09/16/17 06:20 [place] % (Auto) 10.0 % (0.0-10.0) 09/16/17 06:20 Eos % (Auto) 5.4 % (0.0-4.0) H 09/16/17 06:20 Baso % (Auto) 0.5 % (0.0-2.0) 09/16/17 06:20 Neut # (Auto) 6.0 K/uL (1.8-7.0) 09/16/17 06:20 Lymph # (Auto) 2.3 K/uL (1.0-4.3) 09/16/17 06:20 [place] # (Auto) 1.0 K/uL (0.0-0.8) H 09/16/17 06:20 Eos # (Auto) 0.5 K/uL (0.0-0.7) 09/16/17 06:20 Baso # (Auto) 0.1 K/uL (0.0-0.2) 09/16/17 06:20 PT 11.2 SECONDS (9.7-12.2) 09/07/17 21:55 INR 1.0 09/07/17 21:55 APTT 29 SECONDS (21-34) 09/07/17 21:55 Sodium 144 mmol/L (132-148) 09/16/17 06:20 Potassium 3.7 mmol/L (3.6-5.2) 09/16/17 06:20 Chloride 105 mmol/L (98-107) 09/16/17 06:20 Carbon Dioxide 26 mmol/L (22-30) 09/16/17 06:20 Anion Gap 16 (10-20) 09/16/17 06:20 BUN 8 mg/dL (7-17) 09/16/17 06:20 Creatinine 0.6 mg/dL (0.7-1.2) L 09/16/17 06:20 Est GFR ( Amer) > 60 09/16/17 06:20 Est GFR (Non-Af Amer) > 60 09/16/17 06:20 POC Glucose (mg/dL) 169 mg/dL (65-110) H 09/15/17 13:37 Random Glucose 111 mg/dL (65-105) H 09/16/17 06:20 Calcium 9.2 mg/dl (8.6-10.4) 09/16/17 06:20 Total Bilirubin 0.3 mg/dL (0.2-1.3) 09/16/17 06:20 AST 49 U/L (14-36) H D 09/16/17 06:20 ALT 61 U/L (9-52) H D 09/16/17 06:20 Alkaline Phosphatase 60 U/L (38-126) 09/16/17 06:20 Total Creatine Kinase 314 U/L (30-135) H 09/14/17 07:40 CK-MB (Mass) 0.63 ng/mL (0.0-3.38) 09/14/17 07:40 Troponin I < 0.0120 ng/mL (0.00-0.120) 09/14/17 07:40 Total Protein 6.6 g/dL (6.3-8.3) 09/16/17 06:20 Albumin 3.2 g/dL (3.5-5.0) L 09/16/17 06:20 Globulin 3.4 gm/dL (2.2-3.9) 09/16/17 06:20 Albumin/Globulin Ratio 0.9 (1.0-2.1) L 09/16/17 06:20 Urine HCG, Qual Negative (NEGATIVE) 09/12/17 04:49 Blood Type B POSITIVE 09/11/17 16:48 Antibody Screen Negative 09/11/17 16:48 - Hospital Course Hospital Course: This is a 47 year old female with a past medical history of a previous pnemothorax. She comes to hospital with 2 days of non productive coughing and upper back pain. The most previous a right side pneumothorax occured on 08/24 and at that time she needed right side chest tube. This was deemed to be successful and she was discharged on 08/28 She then returned on 09/08 again with shortness of breath, CP, fever. She had another chest tube placed and the following day since there was no improvment in the CXRAYs, she also then had a pig tail catheter placed on 09/08. She then underwent a right sided exploratory thoracotomy on 09/12. On the following day of surgery on 09/13 she had high heart rates as well as fever. She was started on IV abx as well as a repeat CT and cultures. These were stable and the next days we continued to observed. Likely the fever and high heart rates were secondary to post op related. She is now doing well The patient was then continued on water seal and the amount drained lessened. By 09/15 the chest tube was removed and she did ok overnight. She will need to follow up at the [facility]. Ronald Negrete Discharge Exam - Head Exam Head Exam: ATRAUMATIC Discharge Plan - Follow Up Plan Condition: FAIR Disposition: HOME/ ROUTINE Instructions: Pneumothorax (Collapsed Lung) (DC) Additional Instructions: Patient is stable for discharge home. She is to follow up in the [facility] for post discharge care. She is to call and make an appointment. She is to also follow up with surgery Dr. Baez in 1-2 weeks after discharge. Per surgery she can shower anytime after surgery. Leave steri-strips on and they will fall off on their own. Patient is to return to the emergency room if symptoms return. She is to take motrin or ibuprofen over the counter if she has any pain as needed. All instructions explained to the patient and she agrees. Referrals: [facility] [Outside] [facility] [Outside] Willie Baez MD [Medical Doctor] -
== END 2017-09-16 11:34 | disposition home or self-care (01) | DRG 94 ==
LOC: C.ER 20:22 → C.9E 09-08 00:08 → C.6T 09-08 00:44
PROVIDERS: ADMIT Family Medicine; ATTEND Family Medicine
PROC: 0W9930Z Drainage of Right Pleural Cavity with Drainage Device, Percutaneous Approach (ICD-10-PCS; principal; 2017-09-08)
PROC: 0W9900Z Drainage of Right Pleural Cavity with Drainage Device, Open Approach (ICD-10-PCS; 2017-09-12)
DX: J93.83 Other pneumothorax (principal); J43.9 Emphysema, unspecified; F17.210 Nicotine dependence, cigarettes, uncomplicated; J93.82 Other air leak

== ENCOUNTER 2017-11-26 20:03 | Emergency (ER) | payer OTHER ==
[2017-11-26 20:03] VITALS: BMI 24.0
[2017-11-26 20:25] VITALS: TEMP 98.8; O2SAT 100
[2017-11-26] MEDS ORDERED: Sodium Chloride 0.9% 1,000 ML IV ONE (20:33)
--- NOTE | 2017-11-26 20:36 | C.PDOC ---
History Of Present Illness 47 y/o female presents to ER complaining of chest pain that began yesterday. Patient states that the pain started after taking Celexa for the first time. She denies any SOB, fever or chills . Patient has no other medical complaints at this time. Time Seen by Provider: 11/26/17 20:28 Chief Complaint (Nursing): Chest Pain History Per: Patient History/Exam Limitations: no limitations Onset/Duration Of Symptoms: Days Current Symptoms Are (Timing): Still Present Associated Symptoms: denies: Other (SOB) Recent travel outside of the [place]: No Past Medical History Vital Signs: Last Vital Signs Temp 98.8 F 11/26/17 20:14 Pulse 93 H 11/26/17 22:15 Resp 14 11/26/17 22:15 BP 120/65 11/26/17 22:15 Pulse Ox 100 11/26/17 23:38 - Medical History PMH: Depression, Pneumothorax Denies: Chronic Kidney Disease Surgical History: Appendectomy (2001) Other Surgeries: Pulmonary Surgery 2 months ago - [facility] Procedures DRAINAGE OF R PLEURAL CAV WITH DRAIN DEV, OPEN APPROACH (09/08/17) DRAINAGE OF R PLEURAL CAV WITH DRAIN DEV, PERC APPROACH (09/08/17) Family History: States: Unknown Family Hx - Social History Hx Tobacco Use: Yes (Smoker (Former)) Hx Alcohol Use: No Hx Substance Use: No - Immunization History Hx Influenza Vaccination: No Hx Pneumococcal Vaccination: Yes Review Of Systems Except As Marked, All Systems Reviewed And Found Negative. Constitutional: Negative for: Fever, Chills Cardiovascular: Positive for: Chest Pain Respiratory: Positive for: Shortness of Breath Physical Exam - Physical Exam Appears: Non-toxic, No Acute Distress Skin: Normal Color, Warm, Dry Head: Atraumatic, Normacephalic Eye(s): bilateral: PERRL, EOMI Ear(s): Bilateral: Normal Nose: Normal Oral Mucosa: Moist Throat: Normal Neck: Normal ROM, Supple Chest: Symmetrical Cardiovascular: Rhythm Regular (no murmur) Respiratory: Normal Breath Sounds, No Rales, No Rhonchi, No Wheezing Gastrointestinal/Abdominal: Normal Exam, Soft, No Tenderness, No Rebound Extremity: Normal ROM Extremity: Bilateral: Normal Color And Temperature, Normal ROM Pulses: Left Dorsalis Pedis: Normal, Right Dorsalis Pedis: Normal Neurological/Psych: Oriented x3 Additional Physical Exam Comments: lungs clear, no chest wall tenderness ED Course And Treatment - Laboratory Results Result Diagrams: 11/26/17 20:43 11/26/17 21:24 ECG: Interpreted By Me, Viewed By Me ECG Rhythm: Sinus Tachycardia, Nonspecific Changes ECG Interpretation: No Acute Changes, Abnormal Interpretation Of ECG: nsr, non-spc ST-T abnormality lateral chest leads. no acute ST-T abnormality. Rate From EC O2 Sat by Pulse Oximetry: 100 (RA) Pulse Ox Interpretation: Normal - Radiology CXR: Interpreted by Me, Viewed By Me CXR Interpretation: Yes: No Acute Disease Medical Decision Making Medical Decision Making: Impression: 47 y/o female with chest pain and elevated heart rate Plan: --EKG --CMP --Troponin I --CBC --D Dimer --IV fluids --Xanax 0.5 mg PO Disposition Counseled Patient/Family Regarding: Diagnosis - Disposition Referrals: [facility] at [facility] [Outside] Disposition: HOME/ ROUTINE Disposition Time: 23:32 Condition: IMPROVED Additional Instructions: stopped CELEXA and ff up with your doctor. Prescriptions: ALPRAZolam [Xanax] 0.25 mg PO BID #7 tab Instructions: Anxiety, Adult (DC), Adverse Drug Reactions, Adult (DC), Tachycardia (DC) Forms: [facility] (Wallisian), Gen Discharge Inst Hong Konger Print Language: MONEGASQUE - POA Present On Arrival: None - Clinical Impression Clinical Impression: Anxiety, Tachycardia, Drug reaction - Scribe Statement The provider has reviewed the documentation as recorded by the Scribe (Mely Lewis) Provider Attestation: All medical record entries made by the Scribe were at my direction and personally dictated by me. I have reviewed the chart and agree that the record accurately reflects my personal performance of the history, physical exam, medical decision making, and the department course for this patient. I have also personally directed, reviewed, and agree with the discharge instructions and disposition.
[2017-11-26 20:49] LABS: BASO # 0.1 K/uL (0.0-0.2); BASO % 0.6 % (0.0-2.0); EOS # 0.2 K/uL (0.0-0.7); EOS % 1.5 % (0.0-4.0); LYMPH # 5.6 K/uL (1.0-4.3); LYMPH % 39.8 % (20.0-40.0); MEAN CELL VOLUME 92.6 fL (81.0-99.0); MEAN CORPUSCULAR HEMOGLOBIN 31.1 pg (27.0-31.0); MEAN CORPUSCULAR HGB CONC 33.6 g/dL (33.0-37.0); MEAN PLATELET VOLUME 8.1 fL (7.2-11.7); MONO # 1.2 K/uL (0.0-0.8); MONO % 8.6 % (0.0-10.0); NEUT % 49.5 % (50.0-75.0); RBC 4.17 Mil/uL (3.80-5.20); RED CELL DISTRIBUTION WIDTH 13.2 % (11.5-14.5); WHITE BLOOD COUNT 14.1 K/uL (4.8-10.8)
[2017-11-26 21:43] LABS: ALB/GLOB RATIO 1.2 (1.0-2.1); ALBUMIN 4.7 g/dL (3.5-5.0); CALCIUM 9.2 mg/dl (8.6-10.4); GFR AFRICAN-AMERICAN > 60; GFR NON-AFRICAN AMERICAN > 60
[2017-11-26 21:44] LABS: ALT/SGPT 30 U/L (9-52); AST/SGOT 30 U/L (14-36); BLOOD UREA NITROGEN 12 mg/dL (7-17)
[2017-11-26 22:16] VITALS: BP 120/65; PULSE 93; RESP 14
[2017-11-26 23:23] LABS: SQUAMOUS EPITHIAL 1 /hpf (0-5); URINE BACTERIA RARE (<OCC); URINE BILIRUBIN NEGATIVE (NEGATIVE); URINE BLOOD NEGATIVE (NEGATIVE); URINE CLARITY Clear (Clear); URINE COLOR Straw (YELLOW); URINE GLUCOSE (UA) NORMAL (Normal); URINE LEUKOCYTE ESTERASE NEG Leu/uL (Negative); URINE PROTEIN NEGATIVE (NEGATIVE); URINE UROBILINOGEN NORMAL mg/dL (0.2-1.0)
--- NOTE | 2017-11-27 09:08 | RAD ---
HISTORY: COMPARISON: 09/07/2017. TECHNIQUE: Chest PA and lateral FINDINGS: LINES AND TUBES: None. LUNG AND PLEURA: The lungs are well inflated and clear. No pleural effusion or pneumothorax. HEART AND MEDIASTINUM: The heart is not enlarged. The hilar and mediastinal contours are within normal limits. SKELETAL STRUCTURES: The bony structures are within normal limits for the patient's age. VISUALIZED UPPER ABDOMEN: Normal. OTHER FINDINGS: None. IMPRESSION: No active pulmonary disease.
--- NOTE | 2017-11-28 15:10 | CARD ---
APPROVED REPORT Date of service: 11/26/2017 EKG Measurement Heart [id number] <Conclusion> Sinus tachycardia Nonspecific ST abnormality Abnormal ECG
== END 2017-11-26 23:50 | disposition home or self-care (01) ==
LOC: C.ER 20:03
DX: F41.9 Anxiety disorder, unspecified (principal); R00.0 Tachycardia, unspecified; T43.225A Adverse effect of selective serotonin reuptake inhibitors, initial encounter
CPT/HCPCS: 71046; 80053; 81001; 84484; 85025; 85378; 93005; 96360; 99284; J7030

== ENCOUNTER 2018-01-27 13:04 | Emergency (ER) | payer OTHER ==
[2018-01-27 13:04] VITALS: BMI 26.0
[2018-01-27 13:29] VITALS: BP 136/90; PULSE 91; TEMP 98.6; O2SAT 98
--- NOTE | 2018-01-27 13:42 | C.PDOC ---
History Of Present Illness 48 yr old F c/o non tramatic left low back pain with radiation to left buttock/left hip for 5 days. Also, c/o pain on urination. Denies any trauma, fall, numbness, urinary/bowel incontinence, vaginal d/c, abdominal pain. Time Seen by Provider: 01/27/18 13:37 Chief Complaint (Nursing): Back Pain History Per: Patient, Family History/Exam Limitations: language barrier (family translated from Guatemalan) Onset/Duration Of Symptoms: Days (5), Sudden Onset Current Symptoms Are (Timing): Still Present Quality Of Discomfort: Sharp Severity: Moderate Pain Scale Rating Of: 6 Previous Symptoms: Back Pain Past Medical History Reviewed: Historical Data, Nursing Documentation, Vital Signs Vital Signs: Last Vital Signs Temp 98.6 F 01/27/18 13:27 Pulse 91 H 01/27/18 13:27 Resp 16 01/27/18 13:27 BP 136/90 01/27/18 13:27 Pulse Ox 98 01/27/18 13:27 - Medical History PMH: Depression, Pneumothorax Denies: Chronic Kidney Disease Surgical History: Appendectomy (2001) - [facility] Procedures DRAINAGE OF R PLEURAL CAV WITH DRAIN DEV, OPEN APPROACH (09/08/17) DRAINAGE OF R PLEURAL CAV WITH DRAIN DEV, PERC APPROACH (09/08/17) Family History: States: Unknown Family Hx - Social History Hx Tobacco Use: Yes (Smoker (Former)) Hx Alcohol Use: No Hx Substance Use: No - Immunization History Hx Influenza Vaccination: No Hx Pneumococcal Vaccination: Yes Review Of Systems Constitutional: Negative for: Fever Cardiovascular: Negative for: Chest Pain Gastrointestinal: Negative for: Nausea, Vomiting, Abdominal Pain Genitourinary: Positive for: Dysuria. Negative for: Frequency, Hematuria, V aginal Discharge, Vaginal Bleeding Musculoskeletal: Positive for: Back Pain. Negative for: Neck Pain Neurological: Negative for: Weakness, Numbness Physical Exam - Physical Exam Appears: Well, Non-toxic Skin: Normal Color, Warm, Dry Head: Atraumatic, Normacephalic Eye(s): bilateral: Normal Inspection Ear(s): Bilateral: Normal Nose: Normal Oral Mucosa: Moist Neck: Normal Chest: Symmetrical Cardiovascular: Rhythm Regular Respiratory: Normal Breath Sounds Gastrointestinal/Abdominal: Normal Exam, Bowel Sounds, Soft, No Tenderness Back: No CVA Tenderness, No Decreased ROM, No Muscle Spasm, Paraspinal Tenderness (LS), No Straight Leg Raising Extremity: Normal ROM, No Tenderness Neurological/Psych: Oriented x3, Normal Speech ED Course And Treatment O2 Sat by Pulse Oximetry: 98 Pulse Ox Interpretation: Normal Reassessment Condition: Improved (pt reports resolution of pain p meds. mild microscopic hematuria noted, pt instructed to f/u pmd on monday without fail.) Medical Decision Making Medical Decision Making: microscopic hematuria noted, however ,no CVA tenderness, meds resolved pain, unlikely kidney stones. Disposition Counseled Patient/Family Regarding: Studies Performed, Diagnosis, Need For Followup, Rx Given - Disposition Referrals: [facility] [Outside] [facility] [Outside] Disposition: HOME/ ROUTINE Disposition Time: 14:34 Condition: STABLE Additional Instructions: FOLLOW UP IN CLINIC ON MONDAY FOR RE-EVALUATION. RETURN TO ED FOR URINARY OR BOWEL INCONTINENCE OR LEG WEAKNESS OR NUMBNESS. IF SYMPTOMS GET WORSE OR ANY NEW CONCERNING SYMPTOMS DEVELOP RETURN TO ED. Prescriptions: Cyclobenzaprine [Cyclobenzaprine HCl] 1 tab PO Q8H PRN #15 tab PRN Reason: Pain, Moderate (4-7) Ibuprofen [Motrin Tab] 1 tab PO Q8H PRN #15 tab PRN Reason: Pain, Moderate (4-7) Instructions: Sciatica, Low Back Pain in Adults Forms: [facility] ([place]an), Gen Discharge Inst Guatemalan Print Language: SLOVENIAN - Clinical Impression Clinical Impression: Low back pain, Sciatica
[2018-01-27 14:12] LABS: HCG,QUALITATIVE URINE NEGATIVE (NEGATIVE)
[2018-01-27 14:16] LABS: SQUAMOUS EPITHIAL < 1 /hpf (0-5); URINE BILIRUBIN NEGATIVE (NEGATIVE); URINE BLOOD 1+ (NEGATIVE); URINE CLARITY Clear (Clear); URINE COLOR Colorless (YELLOW); URINE GLUCOSE (UA) NORMAL (Normal); URINE LEUKOCYTE ESTERASE NEG Leu/uL (Negative); URINE PROTEIN NEGATIVE (NEGATIVE); URINE UROBILINOGEN NORMAL mg/dL (0.2-1.0)
[2018-01-27 14:55] VITALS: RESP 18
== END 2018-01-27 14:54 | disposition home or self-care (01) ==
LOC: C.ER 13:04
DX: M54.40 Lumbago with sciatica, unspecified side (principal); Z87.891 Personal history of nicotine dependence
CPT/HCPCS: 81001; 84703; 96372; 99284; J1885

== ENCOUNTER 2018-08-06 09:47 | Outpatient (CLI) | payer OTHER | END 2018-08-06 09:48 | disposition home or self-care (01) | LOC: C.CARD 09:47 | DX: R00.0 Tachycardia, unspecified (principal); Z12.31 Encounter for screening mammogram for malignant neoplasm of breast ==

== ENCOUNTER 2018-08-16 10:56 | Outpatient (CLI) | payer OTHER | END 2018-08-16 10:57 | disposition home or self-care (01) | LOC: C.MAMMO 10:56 ==